=== PATIENT | male | born 1950 | race Caucasian/White ===

== ENCOUNTER 2017-04-08 11:14 | Inpatient (IN) | payer MEDICAID, OTHER ==
[~2017-04-08] VITALS: Ht 182.9 cm; Wt 104.3 kg
[2017-04-08] VITALS (7 sets, daily range): BP systolic 135–157; BP diastolic 76–90
[~2017-04-08 11:14] MED LIST: ASPIRIN325 MG ORAL; ATORVASTATIN CA80 MG ORAL; DEPAKOTE250 MG PO; FLOMAX0.4 MG ORAL; IMDUR30 MG ORAL; LANTUS5 UNITS SUBQ; NITROGLYCERIN0.4 MG SL; NOVOLIN R100 UNIT/1 SUBQ; PLAVIX75 MG ORAL; PROTONIX40 MG ORAL; TOPROL XL25 MG ORAL
[2017-04-08] MEDS ORDERED: Morphine Sulfate 4mg/ml Inj IVP ONE (11:30)
[2017-04-08 11:41] LABS: BASOPHILS % (AUTO) 0.9 % (0.0-2.0); EOSINOPHILS % (AUTO) 5.5 % (0.0-3.0); LYMPHOCYTES % (AUTO) 31.3 % (20.0-45.0); MEAN CORPUSCULAR HEMOGLOBIN 30.2 PG (27.0-31.0); MEAN CORPUSCULAR HGB CONC 31.5 G/DL (32.0-36.0); MEAN CORPUSCULAR VOLUME 96 FL (80-99); MEAN PLATELET VOLUME 5.7 FL (6.5-10.1); MONOCYTES % (AUTO) 8.1 % (1.0-10.0); NEUTROPHILS % (AUTO) 54.3 % (45.0-75.0); PLATELET COUNT 198 K/UL (150-450); RED BLOOD COUNT 3.63 M/UL (4.70-6.10); RED CELL DISTRIBUTION WIDTH 13.2 % (11.6-14.8); WHITE BLOOD COUNT 6.7 K/UL (4.8-10.8)
[2017-04-08 11:56] LABS: ALANINE AMINOTRANSFERASE 25 U/L (12-78); ALBUMIN/GLOBULIN RATIO 0.8 (1.0-2.7); ANION GAP 7 mmol/L (5-15); ASPARTATE AMINO TRANSFERASE 12 U/L (15-37); CALCIUM 9.4 MG/DL (8.5-10.1); CARBON DIOXIDE 29 MMOL/L (21-32); CHLORIDE 100 MMOL/L (98-107); CKMB 1.3 NG/ML (0.0-3.6); GLOMERULAR FILTRATION RATE 33.8 mL/min (>60); POTASSIUM 4.3 MMOL/L (3.5-5.1); SODIUM 136 MMOL/L (136-145); TOTAL PROTEIN 7.2 G/DL (6.4-8.2)
--- NOTE | 2017-04-08 12:41 | Diagnostic Imaging Report ---
Indication: Dyspnea Comparison: None A single view chest radiograph was obtained. Findings: Cardiomediastinal appearance is within normal limits for age. Pulmonary vascularity is appropriate. The diaphragmatic contour is smooth and costophrenic angles are sharp. No pleural effusions are identified. The bones are unremarkable. Impression: No acute findings
[2017-04-08] MEDS ORDERED: Aspirin Baby 81mg ORAL ONE (14:45)
--- NOTE | 2017-04-08 15:51 | Emergency Room Report ---
History of Present Illness General Chief Complaint: Chest Pain Source: Patient, Medical Record, EMS Present Illness HPI 66-year-old male presents ED complaining of chest pain. Patient came from jail. States chest pain started while at rest. Pressure-like, 10 out of 10, nonradiating. Given aspirin and nitroglycerin without relief. Patient states she's had prior AL with multiple cardiac stents. Denies smoking or drug use. No other aggravating relieving factors. Denies any other associated symptoms Allergies: Coded Allergies: ACETAMINOPHEN (Unverified Allergy, Unknown, 05/18/14) unknown reaction CHLORPROMAZINE (Unverified Allergy, Unknown, 05/18/14) HYDROCODONE (Unverified Allergy, Unknown, 05/18/14) unknown reaction IBUPROFEN (Unverified Allergy, Unknown, 05/18/14) IMIPRAMINE (Unverified Allergy, Unknown, shaking, 05/18/14) METHSUXIMIDE (Unverified Allergy, Unknown, 05/18/14) METHYLPHENIDATE (Unverified Allergy, Unknown, 05/18/14) Patient History Past Medical History: HTN, AL, CAD Past Surgical History: none Pertinent Family History: none Social History: Denies: smoking, alcohol use, drug use Immunizations: UTD Reviewed Nursing Documentation: PMH: Agreed, PSxH: Agreed Nursing Documentation-PMH Past Medical History: No History, Except For Hx Cardiac Problems: Yes - CA, stents, mi Hx Hypertension: Yes Hx Diabetes: Yes Hx Cancer: Yes - SKIN CANCER Hx Gastrointestinal Problems: Yes - GROWTH ON UPPER GI TRACT Hx Neurological Problems: Yes Hx Seizures: Yes 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 Hx Vertigo: Yes - VESTIBULARY Review of Systems All Other Systems: negative except mentioned in HPI Physical Exam Vital Signs Date Time Temp Pulse Resp B/P (MAP) Pulse Ox O2 Delivery O2 Flow Rate FiO2 04/08/17 11:10 99.0 75 18 142/75 99 Room Air Sp02 EP Interpretation: reviewed, normal General Appearance: no apparent distress, alert, GCS 15, non-toxic, obese Head: normocephalic, atraumatic Eyes: bilateral eye normal inspection, bilateral eye PERRL ENT: hearing grossly normal, normal pharynx, no angioedema, normal voice Neck: full range of motion, supple/symm/no masses Respiratory: chest non-tender, lungs clear, normal breath sounds, speaking full sentences Cardiovascular #1: regular rate, rhythm, no edema Cardiovascular #2: 2+ carotid (R), 2+ carotid (L), 2+ radial (R), 2+ radial (L) , 2+ dorsalis pedis (R), 2+ dorsalis pedis (L) Gastrointestinal: normal bowel sounds, non tender, soft, non-distended, no guarding, no rebound Rectal: deferred Genitourinary: normal inspection, no CVA tenderness Musculoskeletal: back normal, gait/station normal, normal range of motion, non- tender Neurologic: alert, oriented x3, responsive, motor strength/tone normal, sensory intact, speech normal Psychiatric: judgement/insight normal, memory normal, mood/affect normal, no suicidal/homicidal ideation Reflexes: 3+ bicep (R), 3+ bicep (L), 3+ tricep (R), 3+ tricep (L), 3+ knee (R) , 3+ knee (L) Skin: normal color, no rash, warm/dry, well hydrated Lymphatic: no adenopathy Medical Decision Making Diagnostic Impression: Primary Impression: ACS (acute coronary syndrome) Additional Impressions: Hyperglycemia Renal insufficiency ER Course Hospital Course 66-year-old male presents ED complaining of chest pain Differential diagnoses include: AL/unstable angina, contusion, muscle strain, PTX, rib fracture Clinical course Patient placed on stretcher. on environmental monitoring specialist. After initial history and physical I ordered labs, EKG, chest x-ray, ASA, morphine labs reviewed- no leukocytosis, hb/hct stable, BUN/Cr elevated, glucose > 500 not DKA, trop 0.011 and 0.009 EKG - ST depressions in lateral leads, NSR Chest x-ray- no acute process Case discussed with Dr. Perez and he agreed to accept the patient to his service for further care and support I. I feel this is a highly complex case requiring extensive working including EKG/Rhythm strip, Xray/CT/US, Blood/urine lab work, repeat exams while in ED, and administration of strong opiates/narcotics for pain control, admission to hospital or close patient follow up. Diagnosis - ACS, hyperglycemia, renal insufficiency admitted to telemetry in serious condition Labs Test 04/08/17 11:10 04/08/17 12:04 04/08/17 14:50 White Blood Count 6.7 K/UL (4.8-10.8) Red Blood Count 3.63 M/UL (4.70-6.10) Hemoglobin 11.0 G/DL (14.2-18.0) Hematocrit 34.9 % (42.0-52.0) Mean Corpuscular Volume 96 FL (80-99) Mean Corpuscular Hemoglobin 30.2 PG (27.0-31.0) Mean Corpuscular Hemoglobin Concent 31.5 G/DL (32.0-36.0) Red Cell Distribution Width 13.2 % (11.6-14.8) Platelet Count 198 K/UL (150-450) Mean Platelet Volume 5.7 FL (6.5-10.1) Neutrophils (%) (Auto) 54.3 % (45.0-75.0) Lymphocytes (%) (Auto) 31.3 % (20.0-45.0) Monocytes (%) (Auto) 8.1 % (1.0-10.0) Eosinophils (%) (Auto) 5.5 % (0.0-3.0) Basophils (%) (Auto) 0.9 % (0.0-2.0) Sodium Level 136 MMOL/L (136-145) Potassium Level 4.3 MMOL/L (3.5-5.1) Chloride Level 100 MMOL/L (98-107) Carbon Dioxide Level 29 MMOL/L (21-32) Anion Gap 7 mmol/L (5-15) Blood Urea Nitrogen 23 mg/dL (7-18) Creatinine 2.0 MG/DL (0.55-1.30) Estimat Glomerular Filtration Rate 33.8 mL/min (>60) Glucose Level 510 MG/DL (74-106) Calcium Level 9.4 MG/DL (8.5-10.1) Total Bilirubin 0.4 MG/DL (0.2-1.0) Aspartate Amino Transf (AST/SGOT) 12 U/L (15-37) Alanine Aminotransferase (ALT/SGPT) 25 U/L (12-78) Alkaline Phosphatase 85 U/L (46-116) Total Creatine Kinase 64 U/L (26-308) Creatine Kinase MB 1.3 NG/ML (0.0-3.6) Creatine Kinase MB Relative Index 2.0 Troponin I 0.011 ng/mL (0.000-0.056) 0.009 ng/mL (0.000-0.056) Pro-B-Type Natriuretic Peptide 383 pg/mL (0-125) Total Protein 7.2 G/DL (6.4-8.2) Albumin 3.3 G/DL (3.4-5.0) Globulin 3.9 g/dL Albumin/Globulin Ratio 0.8 (1.0-2.7) Acetone Level Negative (NEGATIVE) Urine Opiates Screen Negative (NEGATIVE) Urine Barbiturates Screen Negative (NEGATIVE) Phencyclidine (PCP) Screen Negative (NEGATIVE) Urine Amphetamines Screen Negative (NEGATIVE) Urine Benzodiazepines Screen Negative (NEGATIVE) Urine Cocaine Screen Negative (NEGATIVE) Urine Marijuana (THC) Screen Negative (NEGATIVE) EKG Diagnostic Results Rate: normal Rhythm: NSR ST Segments: other - ST depressions in lateral leads ASA given to the pt in ED: Yes Rhythm Strip Diag. Results EP Interpretation: yes Rhythm: NSR, no PVC's, no ectopy Chest X-Ray Diagnostic Results Chest X-Ray Diagnostic Results : Chest X-Ray Ordered: Yes # of Views/Limited/Complete: 1 View Indication: Chest Pain EP Interpretation: Yes Interpretation: no consolidation, no effusion, no pneumothorax, no acute cardiopulmonary disease Impression: No acute disease Electronically Signed by: Electronically signed by Charles Kramer MD Last Vital Signs Date Time Temp Pulse Resp B/P (MAP) Pulse Ox O2 Delivery O2 Flow Rate FiO2 04/08/17 11:20 75 18 Room Air 04/08/17 11:20 99.0 150/85 99 Status: improved Disposition: ADMITTED INPATIENT Condition: Serious Referrals: [facility],REFERRING (PCP) CHARLES KRAMER M.D. Apr 08, 2017 15:51
[2017-04-08] MEDS ORDERED: Mylanta II UD 30ml ORAL PRN (16:15)
[2017-04-08] MEDS ORDERED: Nitroglycerin Subl 0.4mg tab SL PRN (16:15)
[2017-04-08] MEDS ORDERED: HYDROmorphone 2mg tab ORAL PRN (17:00)
[2017-04-08] MEDS: NovoLOG Insulin Flexpen SUBQ SCH ×2 (18:25→21:05)
--- NOTE | 2017-04-08 20:08 | History and Physical ---
History of Present Illness General Date patient seen: Apr 08, 2017 Time patient seen: 20:08 Reason for Hospitalization: Chest Pain Present Illness HPI 66y/o male with pmh of CA in 2013 w/ CAD s/p 8 stents per pt (no records available), HTN, HLD, DM2, GERD, BPH who presents with chest pain Pt states chest pain started 10:30AM on day of presentation to ED. He states it has been constant since and is described as an "elephant" sitting on his chest w/ associated L arm pain and nauseous. He states pain is similar to chest pain he experienced in 2013 when he had his CA. He also c/o back pain and L leg pain as he has spine issues and a L fibular fracture which was sustained Dec 2016. Pt denies f/c, emesis, abd pain, SOB. In field pt given ASA and NTG w/o much relief. In ED, p Allergies: Coded Allergies: ACETAMINOPHEN (Unverified Allergy, Unknown, 05/18/14) unknown reaction CHLORPROMAZINE (Unverified Allergy, Unknown, 05/18/14) HYDROCODONE (Unverified Allergy, Unknown, 05/18/14) unknown reaction IBUPROFEN (Unverified Allergy, Unknown, 05/18/14) IMIPRAMINE (Unverified Allergy, Unknown, shaking, 05/18/14) METHSUXIMIDE (Unverified Allergy, Unknown, 05/18/14) METHYLPHENIDATE (Unverified Allergy, Unknown, 05/18/14) Medication History Scheduled Aspirin* (Aspirin*), 325 MG ORAL DAILY, (Reported) Atorvastatin Calcium* (Lipitor*), 80 MG ORAL BEDTIME, (Reported) Clopidogrel Bisulfate* (Plavix*), 75 MG ORAL DAILY, (Reported) Divalproex Sodium* (Depakote*), 1,000 MG PO Q12HR, (Reported) Insulin Glargine (Lantus), 26 SUBQ BID, (Reported) Insulin Regular, Human* (Novolin R*), 0 SUBQ .SLIDING SCALE, (Reported) Isosorbide Mononitrate* (Imdur*), 30 MG ORAL DAILY, (Reported) Metoprolol Succinate* (Toprol Xl*), 25 MG ORAL DAILY, (Reported) Nitroglycerin (Nitroglycerin), 0.4 MG SL PRN, (Reported) Pantoprazole* (Protonix*), 40 MG ORAL DAILY, (Reported) Tamsulosin HCl (Flomax), 0.4 MG ORAL DAILY, (Reported) Patient History History Provided By: Patient, Medical Record, EMS Healthcare decision maker Resuscitation status Advanced Directive on File No Past Medical/Surgical History Past Medical/Surgical History: (1) H/o CA in 2014 per patient (2) CAD s/p 8 stents per patient (3) HTN (hypertension) (4) HLD (hyperlipidemia) (5) GERD (gastroesophageal reflux disease) (6) BPH (benign prostatic hyperplasia) (7) DM2 (diabetes mellitus, type 2) Family History Family History: Patient reports no known family medical history. Social History Social History: (1) lives in [facility] Review of Systems Constitutional: Reports: no symptoms Eye: Reports: no symptoms ENT: Reports: no symptoms Respiratory: Reports: no symptoms Cardiovascular: Reports: chest pain Gastrointestinal: Reports: no symptoms Genitourinary: Reports: no symptoms Musculoskeletal: Reports: back pain, muscle pain Skin: Reports: no symptoms Psychiatric: Reports: no symptoms Neurological: Reports: no symptoms Endocrine: Reports: no symptoms Hematologic/Lymphatic: Reports: no symptoms Physical Exam Physical Exam Narrative General: alert, cooperative, no distress, appears stated age Head: normocephalic, without obvious abnormality, atraumatic Eyes: conjunctivae/corneas clear. PERRL, EOM's intact Throat: lips, mucosa, and tongue normal. MMM Neck: supple, symmetrical, trachea midline, and no JVD Lungs: clear to auscultation bilaterally Heart: regular rate and rhythm, S1, S2 normal, no murmur, click, rub or gallop Abdomen: soft, non-tender, non-distended, bowel sounds normal; no masses or organomegaly Extremities: extremities normal, atraumatic, no cyanosis or edema Pulses: 2+ and symmetric Skin: skin color, texture, turgor normal; no rashes or lesions Neurologic: grossly normal, no focal deficits Last 24 Hour Vital Signs Date Time Temp Pulse Resp B/P (MAP) Pulse Ox O2 Delivery O2 Flow Rate FiO2 04/08/17 16:07 97.5 67 18 157/90 97 Room Air 04/08/17 16:00 70 04/08/17 15:20 98.4 80 18 147/80 99 Room Air 04/08/17 15:20 97.9 80 18 147/80 99 Room Air 04/08/17 14:25 98.4 75 20 138/76 98 Room Air 04/08/17 12:30 98.5 86 16 144/88 100 Room Air 04/08/17 11:20 75 18 Room Air 04/08/17 11:20 99.0 73 18 150/85 99 Room Air 04/08/17 11:10 99.0 75 18 142/75 99 Room Air Intake and Output 04/08/17 04/09/17 19:00 07:00 Intake Total 1120 ml Balance 1120 ml Intake Oral 120 ml IV Total 1000 ml # Voids 1 Laboratory Tests Test 04/08/17 11:10 04/08/17 12:04 04/08/17 14:50 White Blood Count 6.7 K/UL (4.8-10.8) Red Blood Count 3.63 M/UL (4.70-6.10) L Hemoglobin 11.0 G/DL (14.2-18.0) L Hematocrit 34.9 % (42.0-52.0) L Mean Corpuscular Volume 96 FL (80-99) Mean Corpuscular Hemoglobin 30.2 PG (27.0-31.0) Mean Corpuscular Hemoglobin Concent 31.5 G/DL (32.0-36.0) L Red Cell Distribution Width 13.2 % (11.6-14.8) Platelet Count 198 K/UL (150-450) Mean Platelet Volume 5.7 FL (6.5-10.1) L Neutrophils (%) (Auto) 54.3 % (45.0-75.0) Lymphocytes (%) (Auto) 31.3 % (20.0-45.0) Monocytes (%) (Auto) 8.1 % (1.0-10.0) Eosinophils (%) (Auto) 5.5 % (0.0-3.0) H Basophils (%) (Auto) 0.9 % (0.0-2.0) Sodium Level 136 MMOL/L (136-145) Potassium Level 4.3 MMOL/L (3.5-5.1) Chloride Level 100 MMOL/L (98-107) Carbon Dioxide Level 29 MMOL/L (21-32) Anion Gap 7 mmol/L (5-15) Blood Urea Nitrogen 23 mg/dL (7-18) H Creatinine 2.0 MG/DL (0.55-1.30) H Estimat Glomerular Filtration Rate 33.8 mL/min (>60) Glucose Level 510 MG/DL (74-106) *H Calcium Level 9.4 MG/DL (8.5-10.1) Total Bilirubin 0.4 MG/DL (0.2-1.0) Aspartate Amino Transf (AST/SGOT) 12 U/L (15-37) L Alanine Aminotransferase (ALT/SGPT) 25 U/L (12-78) Alkaline Phosphatase 85 U/L (46-116) Total Creatine Kinase 64 U/L (26-308) Creatine Kinase MB 1.3 NG/ML (0.0-3.6) Creatine Kinase MB Relative Index 2.0 Troponin I 0.011 ng/mL (0.000-0.056) 0.009 ng/mL (0.000-0.056) Pro-B-Type Natriuretic Peptide 383 pg/mL (0-125) H Total Protein 7.2 G/DL (6.4-8.2) Albumin 3.3 G/DL (3.4-5.0) L Globulin 3.9 g/dL Albumin/Globulin Ratio 0.8 (1.0-2.7) L Acetone Level Negative (NEGATIVE) Urine Opiates Screen Negative (NEGATIVE) Urine Barbiturates Screen Negative (NEGATIVE) Phencyclidine (PCP) Screen Negative (NEGATIVE) Urine Amphetamines Screen Negative (NEGATIVE) Urine Benzodiazepines Screen Negative (NEGATIVE) Urine Cocaine Screen Negative (NEGATIVE) Urine Marijuana (THC) Screen Negative (NEGATIVE) Height (Feet): 6 Height (Inches): 2.00 Weight (Pounds): 230 Medications Current Medications Medications (Trade) Dose Ordered Sig/Breanna Route PRN Reason Start Time Stop Time Status Last Admin Dose Admin Al Hydroxide/Mg Hydroxide (Mylanta II) 30 ml Q6H PRN ORAL dyspepsia 04/08/17 16:15 05/08/17 16:14 Aspirin (ASA) 325 mg DAILY ORAL 04/09/17 09:00 05/09/17 08:59 Atorvastatin Calcium (Lipitor) 80 mg BEDTIME ORAL 04/08/17 21:00 05/08/17 20:59 Clopidogrel Bisulfate (Plavix) 75 mg DAILY ORAL 04/09/17 09:00 05/09/17 08:59 Dextrose (Dextrose 50%) STAT PRN IV Hypoglycemia 04/08/17 16:15 05/08/17 16:14 Diphenhydramine HCl (Benadryl) 25 mg Q6H PRN ORAL Itching/Pruritis 04/08/17 16:15 05/08/17 16:14 Divalproex Sodium (Depakote) 1,000 mg Q12HR ORAL 04/08/17 21:00 05/08/17 20:59 Docusate Sodium (Colace) 100 mg EVERY 12 HOURS ORAL 04/08/17 21:00 05/08/17 20:59 Heparin Sodium (Porcine) (Heparin 5000 units/ml) 5,000 units EVERY 12 HOURS SUBQ 04/08/17 21:00 05/08/17 20:59 Hydromorphone HCl (Dilaudid) 2 mg Q4H PRN ORAL pain scale 4-10 04/08/17 17:00 04/15/17 16:59 04/08/17 18:44 Insulin Aspart (NovoLOG) BEFORE MEALS AND HS SUBQ 04/08/17 17:30 05/08/17 17:29 04/08/17 18:25 Isosorbide Mononitrate (Imdur) 30 mg DAILY ORAL 04/09/17 09:00 05/09/17 08:59 Metoprolol Succinate (Toprol XL) 25 mg DAILY ORAL 04/09/17 09:00 05/09/17 08:59 Nitroglycerin (Ntg) 0.4 mg Q5M PRN SL CHEST PAIN 04/08/17 16:15 05/08/17 16:14 Ondansetron HCl (Zofran) 4 mg Q6H PRN IVP Nausea & Vomiting 04/08/17 16:15 05/08/17 16:14 Pantoprazole (Protonix) 40 mg DAILY ORAL 04/09/17 09:00 05/09/17 08:59 Tamsulosin HCl (Flomax) 0.4 mg DAILY ORAL 04/09/17 09:00 05/09/17 08:59 Assessment/Plan Problem List: (1) Hyperglycemia ICD Codes: R73.9 - Hyperglycemia, unspecified SNOMED: 72361667 (2) Chest pain ICD Codes: R07.9 - Chest pain, unspecified SNOMED: 01522330 (3) GRZEGORZ vs CKD (4) H/o CA in 2014 per patient (5) CAD s/p 8 stents per patient (6) HTN (hypertension) ICD Codes: I10 - Essential (primary) hypertension SNOMED: 44088283 (7) HLD (hyperlipidemia) ICD Codes: E78.5 - Hyperlipidemia, unspecified SNOMED: 59316372 (8) GERD (gastroesophageal reflux disease) ICD Codes: K21.9 - Gastro-esophageal reflux disease without esophagitis SNOMED: 296201533 (9) BPH (benign prostatic hyperplasia) ICD Codes: N40.0 - Benign prostatic hyperplasia without lower urinary tract symptoms SNOMED: 700468221 (10) DM2 (diabetes mellitus, type 2) ICD Codes: E11.9 - Type 2 diabetes mellitus without complications SNOMED: 27076415 Status: stable Assessment/Plan Admit to tele Trend trop/EKG Check TTE Cardiology consulted Check lipid panel, A1C, TSH Renal consulted Trend BMP and lytes Check U/A and urine lytes Cont home meds including ASA, plavix, statin Pain control, supportive care, bowel regimen HSQ for DVT ppx FULL CODE D/w pt, RN, cardiology, renal, SW/CM regarding mgmt and dispo Catie Dillon M.D. Apr 08, 2017 20:08
[2017-04-08] MEDS: Atorvastatin 80mg tab ORAL SCH (21:01)
[2017-04-08] MEDS: Docusate 100mg cap ORAL SCH (21:01)
[2017-04-08] MEDS: Heparin 5000 units/ml inj SUBQ SCH (21:03)
[2017-04-08] MEDS: Depakote 500mg tab ORAL SCH (21:04)
[2017-04-08] MEDS: HYDROmorphone 1mg/ml Carpuject IVP PRN (22:15)
[2017-04-08 23:37] LABS: APPEARANCE,URINE CLEAR; KETONES,URINE NEGATIVE (NEGATIVE); LEUKOCYTE ESTERASE ,URINE NEGATIVE (NEGATIVE); NITRITE,URINE NEGATIVE (NEGATIVE); PH,URINE 5 (4.5-8.0); PROTEIN,URINE NEGATIVE (NEGATIVE); UROBILINOGEN,URINE NORMAL MG/DL (0.0-1.0)
[2017-04-08] MEDS: Meclizine 25mg tab ORAL PRN (23:42)
[2017-04-09] VITALS: BP 126/77
[2017-04-09] MEDS: HYDROmorphone 1mg/ml Carpuject IVP PRN ×5 (02:46→22:42)
[2017-04-09 04:00] VITALS: BP 114/74
[2017-04-09] MEDS: NovoLOG Insulin Flexpen SUBQ SCH ×4 (06:52→20:34)
[2017-04-09 08:00] VITALS: BP 113/70
[2017-04-09 08:36] LABS: BASOPHILS % (AUTO) 0.7 % (0.0-2.0); EOSINOPHILS % (AUTO) 5.3 % (0.0-3.0); LYMPHOCYTES % (AUTO) 39.6 % (20.0-45.0); MEAN CORPUSCULAR HEMOGLOBIN 31.2 PG (27.0-31.0); MEAN CORPUSCULAR HGB CONC 31.5 G/DL (32.0-36.0); MEAN CORPUSCULAR VOLUME 99 FL (80-99); MEAN PLATELET VOLUME 5.3 FL (6.5-10.1); MONOCYTES % (AUTO) 4.9 % (1.0-10.0); NEUTROPHILS % (AUTO) 49.6 % (45.0-75.0); PLATELET COUNT 183 K/UL (150-450); RED BLOOD COUNT 3.48 M/UL (4.70-6.10); RED CELL DISTRIBUTION WIDTH 13.7 % (11.6-14.8); WHITE BLOOD COUNT 9.5 K/UL (4.8-10.8)
[2017-04-09] MEDS: Docusate 100mg cap ORAL SCH ×2 (08:41→20:16)
[2017-04-09] MEDS: Tamsulosin 0.4mg cap ORAL SCH (08:42)
[2017-04-09] MEDS: Metoprolol Succinate XL 25mg tab ORAL SCH (08:43)
[2017-04-09] MEDS: Depakote 500mg tab ORAL SCH ×2 (08:55→20:17)
[2017-04-09] MEDS: Imdur 30mg tab ORAL SCH (08:55)
[2017-04-09] MEDS: Heparin 5000 units/ml inj SUBQ SCH ×2 (08:58→20:21)
[2017-04-09 09:05] LABS: ANION GAP 5 mmol/L (5-15); CALCIUM 9.3 MG/DL (8.5-10.1); CARBON DIOXIDE 31 MMOL/L (21-32); CHLORIDE 105 MMOL/L (98-107); CHOLESTEROL 135 MG/DL (< 200); CHOLESTEROL/HDL RATIO 3.9 (3.3-4.4); CREATININE 1.9 MG/DL (0.55-1.30); GLOMERULAR FILTRATION RATE 35.9 mL/min (>60); MAGNESIUM 1.9 MG/DL (1.8-2.4); SODIUM 141 MMOL/L (136-145); THYROID STIMULATING HORMONE 11.482 uiU/mL (0.360-3.740)
[2017-04-09 10:29] LABS: ALANINE AMINOTRANSFERASE 25 U/L (12-78); ASPARTATE AMINO TRANSFERASE 18 U/L (15-37); BILIRUBIN,DIRECT < 0.1 MG/DL (0.0-0.3); PHOSPHORUS 4.2 MG/DL (2.5-4.9); URIC ACID 9.8 MG/DL (2.6-7.2)
[2017-04-09 11:58] VITALS: BP 123/78
[2017-04-09 13:48] LABS: FOLIC ACID 18.8 NG/ML (3.1-17.5)
--- NOTE | 2017-04-09 15:16 | Cardiac Electrophysiology PN ---
Subjective Subjective Dictated [id number] Objective Last 24 Hour Vital Signs Date Time Temp Pulse Resp B/P (MAP) Pulse Ox O2 Delivery O2 Flow Rate FiO2 04/09/17 12:00 85 04/09/17 11:58 97.5 86 20 123/78 94 Nasal Cannula 2.0 04/09/17 08:55 113/70 04/09/17 08:43 84 113/70 04/09/17 08:00 78 04/09/17 08:00 97.2 84 21 113/70 97 Nasal Cannula 2.0 04/09/17 04:00 76 04/09/17 04:00 97.0 74 20 114/74 96 Nasal Cannula 3.0 04/09/17 00:00 97.7 72 20 126/77 97 Nasal Cannula 2.0 04/09/17 00:00 72 04/08/17 20:00 72 04/08/17 20:00 96.4 72 20 135/86 100 Nasal Cannula 2.0 04/08/17 16:07 97.5 67 18 157/90 97 Room Air 04/08/17 16:00 70 04/08/17 15:20 98.4 80 18 147/80 99 Room Air 04/08/17 15:20 97.9 80 18 147/80 99 Room Air Laboratory Tests Test 04/08/17 21:00 04/08/17 22:10 04/09/17 07:10 Troponin I 0.000 ng/mL (0.000-0.056) 0.017 ng/mL (0.000-0.056) Urine Color Yellow Urine Appearance Clear Urine pH 5 (4.5-8.0) Urine Specific [place] 1.010 (1.005-1.035) Urine Protein Negative (NEGATIVE) Urine Glucose (UA) 4+ (NEGATIVE) H Urine Ketones Negative (NEGATIVE) Urine Occult Blood Negative (NEGATIVE) Urine Nitrite Negative (NEGATIVE) Urine Bilirubin Negative (NEGATIVE) Urine Urobilinogen Normal MG/DL (0.0-1.0) Urine Leukocyte Esterase Negative (NEGATIVE) Urine Random Sodium 67 MEQ/L (20-110) Urine Creatinine 102.4 MG/DL (30.0-125.0) Urine Opiates Screen Negative (NEGATIVE) Urine Barbiturates Screen Negative (NEGATIVE) Phencyclidine (PCP) Screen Negative (NEGATIVE) Urine Amphetamines Screen Negative (NEGATIVE) Urine Benzodiazepines Screen Negative (NEGATIVE) Urine Cocaine Screen Negative (NEGATIVE) Urine Marijuana (THC) Screen Negative (NEGATIVE) White Blood Count 9.5 K/UL (4.8-10.8) Red Blood Count 3.48 M/UL (4.70-6.10) L Hemoglobin 10.8 G/DL (14.2-18.0) L Hematocrit 34.4 % (42.0-52.0) L Mean Corpuscular Volume 99 FL (80-99) Mean Corpuscular Hemoglobin 31.2 PG (27.0-31.0) H Mean Corpuscular Hemoglobin Concent 31.5 G/DL (32.0-36.0) L Red Cell Distribution Width 13.7 % (11.6-14.8) Platelet Count 183 K/UL (150-450) Mean Platelet Volume 5.3 FL (6.5-10.1) L Neutrophils (%) (Auto) 49.6 % (45.0-75.0) Lymphocytes (%) (Auto) 39.6 % (20.0-45.0) Monocytes (%) (Auto) 4.9 % (1.0-10.0) Eosinophils (%) (Auto) 5.3 % (0.0-3.0) H Basophils (%) (Auto) 0.7 % (0.0-2.0) Sodium Level 141 MMOL/L (136-145) Potassium Level 4.0 MMOL/L (3.5-5.1) Chloride Level 105 MMOL/L (98-107) Carbon Dioxide Level 31 MMOL/L (21-32) Anion Gap 5 mmol/L (5-15) Blood Urea Nitrogen 24 mg/dL (7-18) H Creatinine 1.9 MG/DL (0.55-1.30) H Estimat Glomerular Filtration Rate 35.9 mL/min (>60) Glucose Level 145 MG/DL (74-106) #H Hemoglobin A1c 9.0 % (4.3-6.0) H Uric Acid 9.8 MG/DL (2.6-7.2) H Calcium Level 9.3 MG/DL (8.5-10.1) Phosphorus Level 4.2 MG/DL (2.5-4.9) Magnesium Level 1.9 MG/DL (1.8-2.4) Total Bilirubin 0.4 MG/DL (0.2-1.0) Direct Bilirubin < 0.1 MG/DL (0.0-0.3) Gamma Glutamyl Transpeptidase 34 U/L (5-85) Aspartate Amino Transf (AST/SGOT) 18 U/L (15-37) Alanine Aminotransferase (ALT/SGPT) 25 U/L (12-78) Alkaline Phosphatase 66 U/L (46-116) Total Creatine Kinase 47 U/L (26-308) Total Protein 7.0 G/DL (6.4-8.2) Albumin 3.4 G/DL (3.4-5.0) Triglycerides Level 306 MG/DL (0-200) H Cholesterol Level 135 MG/DL (< 200) LDL Cholesterol 64 mg/dL (<100) HDL Cholesterol 35 MG/DL (40-60) L Cholesterol/HDL Ratio 3.9 (3.3-4.4) Vitamin B12 Level 604 PG/ML (193-986) Vitamin D 25-Hydroxy Pending 25-Hydroxy Vitamin D2 Pending 25-Hydroxy Vitamin D3 Pending Folate 18.8 NG/ML (3.1-17.5) H Thyroid Stimulating Hormone (TSH) 11.482 uiU/mL (0.360-3.740) Free Thyroxine 0.87 NG/DL (0.10-1.46) SADE MARC Apr 09, 2017 15:16
[2017-04-09 16:00] VITALS: BP 104/70
--- NOTE | 2017-04-09 16:31 | Consultation ---
Consult Note Consult Note 66-year-old male presents ED complaining of chest pain. Patient came from group home. States chest pain started while at rest. Pressure-like, 10 out of 10, nonradiating. Given aspirin and nitroglycerin without relief. Patient states she's had prior MO with multiple cardiac stents. Denies smoking or drug use. No other aggravating relieving factors. Denies any other associated symptoms Allergies: Coded Allergies: ACETAMINOPHEN (Unverified Allergy, Unknown, 05/18/14) unknown reaction CHLORPROMAZINE (Unverified Allergy, Unknown, 05/18/14) HYDROCODONE (Unverified Allergy, Unknown, 05/18/14) unknown reaction IBUPROFEN (Unverified Allergy, Unknown, 05/18/14) IMIPRAMINE (Unverified Allergy, Unknown, shaking, 05/18/14) METHSUXIMIDE (Unverified Allergy, Unknown, 05/18/14) METHYLPHENIDATE (Unverified Allergy, Unknown, 05/18/14) Patient History Past Medical History: HTN, [place], CAD Assessment/Plan Renal failure ? Chronic Anemia, Etiology? High TSh, Hypothyroid ACS DM , high A1c HyperUrecemia Obese Plan: Hydrate- Kidney MABEL per cardiology Per orders RANGEL PERES Apr 09, 2017 16:31
[2017-04-09] MEDS: Allopurinol 100mg Tab ORAL SCH (16:45)
--- NOTE | 2017-04-09 18:18 | General Progress Note ---
Assessment/Plan Problem List: (1) Chest pain ICD Codes: R07.9 - Chest pain, unspecified SNOMED: 76763471 (2) Hyperglycemia ICD Codes: R73.9 - Hyperglycemia, unspecified SNOMED: 55098301 (3) GRZEGORZ vs CKD (4) H/o LA in 2014 per patient (5) CAD s/p 8 stents per patient (6) HTN (hypertension) ICD Codes: I10 - Essential (primary) hypertension SNOMED: 59891520 (7) HLD (hyperlipidemia) ICD Codes: E78.5 - Hyperlipidemia, unspecified SNOMED: 08001324 (8) GERD (gastroesophageal reflux disease) ICD Codes: K21.9 - Gastro-esophageal reflux disease without esophagitis SNOMED: 945924260 (9) BPH (benign prostatic hyperplasia) ICD Codes: N40.0 - Benign prostatic hyperplasia without lower urinary tract symptoms SNOMED: 797777302 (10) DM2 (diabetes mellitus, type 2) ICD Codes: E11.9 - Type 2 diabetes mellitus without complications SNOMED: 45060348 (11) Tremor ICD Codes: R25.1 - Tremor, unspecified SNOMED: 80284465 Status: stable Assessment/Plan Monitor on tele Serial trop neg x 3 F/u TTE Appreciate cardiology consult Check nuclear stress test Appreicate renal consult Trend BMP and lytes Check renal U/S Trial of IVFs Cont home meds including ASA, plavix, statin SSI Neuro consulted given tremor Pain control, supportive care, bowel regimen HSQ for DVT ppx Likely d/c tomorrow if stress test neg FULL CODE D/w pt, RN, cardiology, renal, SW/CM regarding mgmt and dispo Subjective Date patient seen: Apr 09, 2017 Time patient seen: 11:00 Constitutional: Reports: no symptoms HEENT: Reports: no symptoms Cardiovascular: Reports: chest pain Respiratory: Reports: no symptoms Genitourinary: Reports: no symptoms Neurologic/Psychiatric: Reports: no symptoms Endocrine: Reports: no symptoms Hematologic/Lymphatic: Reports: no symptoms Allergies: Coded Allergies: ACETAMINOPHEN (Unverified Allergy, Unknown, 05/18/14) unknown reaction CHLORPROMAZINE (Unverified Allergy, Unknown, 05/18/14) HYDROCODONE (Unverified Allergy, Unknown, 05/18/14) unknown reaction IBUPROFEN (Unverified Allergy, Unknown, 05/18/14) IMIPRAMINE (Unverified Allergy, Unknown, shaking, 05/18/14) METHSUXIMIDE (Unverified Allergy, Unknown, 05/18/14) METHYLPHENIDATE (Unverified Allergy, Unknown, 05/18/14) Subjective No acute o/n events Trop neg x 3 TTE completed, awaiting report Pt states chest pain improving. Complains more of back and leg pain from spine issue and fibular fx. States PCP has referred him to ortho but he is awaiting insurance authorization to be seen. Denies f/c, n/v, d/c, SOB, abd pain C/o tremor of hands that has been going on for some time and he has shown his PCP. Pt concerned if it is Parkinson's and would like to see neuro Objective Last 24 Hour Vital Signs Date Time Temp Pulse Resp B/P (MAP) Pulse Ox O2 Delivery O2 Flow Rate FiO2 04/09/17 16:00 97.5 107 21 104/70 95 Room Air 04/09/17 12:00 85 04/09/17 11:58 97.5 86 20 123/78 94 Nasal Cannula 2.0 04/09/17 08:55 113/70 04/09/17 08:43 84 113/70 04/09/17 08:00 78 04/09/17 08:00 97.2 84 21 113/70 97 Nasal Cannula 2.0 04/09/17 04:00 76 04/09/17 04:00 97.0 74 20 114/74 96 Nasal Cannula 3.0 04/09/17 00:00 97.7 72 20 126/77 97 Nasal Cannula 2.0 04/09/17 00:00 72 04/08/17 20:00 72 04/08/17 20:00 96.4 72 20 135/86 100 Nasal Cannula 2.0 Laboratory Tests 04/08/17 21:00: Troponin I 0.000 04/08/17 22:10: Urine Color Yellow, Urine Appearance Clear, Urine pH 5, Urine Specific [place] 1.010, Urine Protein Negative, Urine Glucose (UA) 4+H, Urine Ketones Negative, Urine Occult Blood Negative, Urine Nitrite Negative, Urine Bilirubin Negative, Urine Urobilinogen Normal, Urine Leukocyte Esterase Negative, Urine Random Sodium 67, Urine Creatinine 102.4, Urine Opiates Screen Negative, Urine Barbiturates Screen Negative, Phencyclidine (PCP) Screen Negative, Urine Amphetamines Screen Negative, Urine Benzodiazepines Screen Negative, Urine Cocaine Screen Negative, Urine Marijuana (THC) Screen Negative 04/09/17 07:10: Troponin I 0.017, White Blood Count 9.5, Red Blood Count 3.48L, Hemoglobin 10.8L , Hematocrit 34.4L, Mean Corpuscular Volume 99, Mean Corpuscular Hemoglobin 31.2H, Mean Corpuscular Hemoglobin Concent 31.5L, Red Cell Distribution Width 13.7, Platelet Count 183, Mean Platelet Volume 5.3L, Neutrophils (%) (Auto) 49.6 , Lymphocytes (%) (Auto) 39.6, Monocytes (%) (Auto) 4.9, Eosinophils (%) (Auto) 5.3H, Basophils (%) (Auto) 0.7, Sodium Level 141, Potassium Level 4.0, Chloride Level 105, Carbon Dioxide Level 31, Anion Gap 5, Blood Urea Nitrogen 24H, Creatinine 1.9H, Estimat Glomerular Filtration Rate 35.9, Glucose Level 145#H, Hemoglobin A1c 9.0H, Uric Acid 9.8H, Calcium Level 9.3, Phosphorus Level 4.2, Magnesium Level 1.9, Total Bilirubin 0.4, Direct Bilirubin < 0.1, Gamma Glutamyl Transpeptidase 34, Aspartate Amino Transf (AST/SGOT) 18, Alanine Aminotransferase (ALT/SGPT) 25, Alkaline Phosphatase 66, Total Creatine Kinase 47, Total Protein 7.0, Albumin 3.4, Triglycerides Level 306H, Cholesterol Level 135, LDL Cholesterol 64, HDL Cholesterol 35L, Cholesterol/HDL Ratio 3.9, Vitamin B12 Level 604, Vitamin D 25-Hydroxy [Pending], 25-Hydroxy Vitamin D2 [ Pending], 25-Hydroxy Vitamin D3 [Pending], Folate 18.8H, Thyroid Stimulating Hormone (TSH) 11.482H, Free Thyroxine 0.87 Height (Feet): 6 Height (Inches): 2.00 Weight (Pounds): 230 Objective General: alert, cooperative, no distress, appears stated age Head: normocephalic, without obvious abnormality, atraumatic Eyes: conjunctivae/corneas clear. PERRL, EOM's intact Throat: lips, mucosa, and tongue normal. MMM Neck: supple, symmetrical, trachea midline, and no JVD Lungs: clear to auscultation bilaterally Heart: regular rate and rhythm, S1, S2 normal, no murmur, click, rub or gallop Abdomen: soft, non-tender, non-distended, bowel sounds normal; no masses or organomegaly Extremities: extremities normal, atraumatic, no cyanosis or edema Pulses: 2+ and symmetric Skin: skin color, texture, turgor normal; no rashes or lesions Neurologic: grossly normal, no focal deficits Catie Dillon M.D. Apr 09, 2017 18:18
--- NOTE | 2017-04-09 19:22 | Consultation ---
Consult Note Consult Note NEUROLOGY CONSULTATION: Full note dictated #[id number] 66 y/o, LH, CM with H/O insult, seizure disorder under excellent control with Depakote, ADHD, HTN, DM, DL, and CAD s/p PCI who was hospitalized for chest pain. He complained of a tremor. He had a tremor a 4 years ago associated with hyperthyroidism which responded to a decrease in dose of Synthroid. About 4 months ago the tremor recurred. ON EXAM: Mild memory problems. Give way weakness in all 4s. Globally absent reflexes. 7-8 Hz tremor which increases significantly with effort in UE Wide based ataxic gait. 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 "Generalized Idiopathic Epilepsy" REC: 1. W/U for treatable causes of ET 2. Keep active. Kirk Munguia M.D., M.S.P.KIRK LUCAS Apr 09, 2017 19:22
[2017-04-09] MEDS: Atorvastatin 80mg tab ORAL SCH (20:16)
[2017-04-09 20:17] VITALS: BP 108/67
[2017-04-09 20:31] LABS: AMMONIA 24 umol/L (11.2-31.7)
[2017-04-09 20:33] LABS: VALPROIC ACID 91 MCG/ML (50-100)
[2017-04-09 20:38] LABS: ABG ALLEN TEST POSITIVE; ABG PCO2 36.7 mmHg (35.0-45.0)
--- NOTE | 2017-04-09 21:45 | Consultation ---
DATE OF CONSULTATION: 04/09/2017 CARDIOLOGY CONSULTATION CONSULTING PHYSICIAN: Chung Dorsey M.D. REFERRING PHYSICIAN: Blair Nick M.D. REASON FOR CONSULTATION: Chest pain. HISTORY OF PRESENT ILLNESS: The patient is a 66-year-old gentleman with history of hypertension, coronary artery disease, and history of prior myocardial infarction in August and December 2013. The patient states that he has had eight stents in his coronaries with most recent one in May 2014 at [facility]. The patient developed chest pain while he was rest at the assisted living, it was 10/10 and was nonradiating. The patient received aspirin and nitroglycerin without any relief. The patient was admitted and a Cardiology consultation was obtained for further evaluation and management. ALLERGIES: He is allergic to acetaminophen, promethazine, hydrocodone, ibuprofen, imipramine, and methylphenidate. SOCIAL HISTORY: [facility]. Does not smoke or drink alcohol. FAMILY HISTORY: Noncontributory. REVIEW OF SYSTEMS: Review of systems was performed and was negative other than what was mentioned in the history of present illness. PHYSICAL EXAMINATION: VITAL SIGNS: Blood pressure 122/78, pulse 86, respirations 18, and temperature 97.5. HEAD AND NECK: Showed no JVD. LUNGS: Clear. CARDIOVASCULAR: Regular S1 and S2 with no gallop or murmur. ABDOMEN: Soft. EXTREMITIES: No pitting edema. IMAGING STUDIES: His EKG shows sinus rhythm with lateral ischemia. LABORATORY DATA: White count of 9.5, hematocrit 10.8, hematocrit of 34.5, and platelet count 183. Sodium 141, potassium is 4.0, BUN of 24, creatinine 1.9, and glucose of 145. His troponins are negative x4. His glucose on admission was 510. ASSESSMENT AND PLAN: 1. Chest pain. The patient was ruled out for myocardial infarction by serial cardiac enzymes. EKG shows lateral ischemia but we did not have any prior EKGs to compare with. Continue aspirin, Plavix, and Toprol 25 mg daily as well as Imdur 30 mg daily. The patient is also on Lipitor 80 mg daily. We will schedule the patient for echocardiogram as well as nuclear stress test for further evaluation. 2. Hypertension. Blood pressure was stable on Imdur 30 mg and Toprol-XL 25 mg daily. 3. Renal failure. Creatinine was around 2, VILMA inhibitor and angiotensin receptor blockers. 4. History of seizures. 5. History of skin cancer. Thank you very much, Dr. Nick, for allowing me to participate in the care of this patient. Please do not hesitate to contact me for any questions regarding my evaluation. Chung Dorsey M.D. DR: BENJAMÍN JOB#: [id number] CC:
[2017-04-09] MEDS: HYDROmorphone 2mg tab ORAL PRN ×2 (21:56→22:00)
--- NOTE | 2017-04-10 | Consultation ---
DATE OF CONSULTATION: 04/09/2017 NEUROLOGY CONSULTATION REQUESTING PHYSICIAN: Catie Dillon M.D. HISTORY: Mr. Stefano Chopra is a 66-year-old, left-handed, gentleman, who has a history of a insult; seizure disorder - under excellent control with Depakote; ADHD; hypertension; diabetes mellitus; dyslipidemia; and coronary artery disease - status post percutaneous interventions. He was hospitalized for chest pain. He complained of tremor and thus, this consultation was requested to evaluate the patient for the type of tremor that he has. As per the patient, he started having seizures since he was a child. He was on various different medicines over the years, but the medicine that seems to work best for him is Depakote. He has been free of any generalized tonic-clonic seizures since the on the Depakote. A few years ago, one of his physicians tried to change him to another antiseizure medicine, but when that was done, he started to have most probably complex partial seizures. He was placed back on Depakote and the seizures stopped. Approximately four years ago, he started to have a tremor. The tremor involved predominantly his upper extremities and at one time, he also felt the tremor in his lower extremities. At that time, it was felt that he was hyperthyroid and when his dose of Synthroid was decreased, the tremor went away. Approximately four months ago, the tremor came back and has been there predominantly in the upper extremities. The tremor is minimal or absent when he is at rest, but increases significantly when he uses his hands to do things. He denies any stiffness, any change in his facial expression, any slowness of movements or other neurological symptoms. PAST MEDICAL HISTORY: Significant for insult, seizure disorder, ADHD, hypertension, diabetes mellitus, dyslipidemia, coronary artery disease, and hypothyroidism. FAMILY HISTORY: Significant for seizures in numerous family members. PERSONAL HISTORY: Home: He lives in an assisted living facility. 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 Habits: He denies use of tobacco or illicit drugs, but does consume a few alcoholic drinks in a month. He denies the use of any illicit drugs. MEDICATIONS: Present medications include allopurinol, aspirin, Plavix, Imdur, Toprol, Protonix, Flomax, Antivert, Dilaudid, heparin for DVT prophylaxis, atorvastatin, Depakote 1 g every 12 hours, insulin, Zofran, Benadryl, and nitroglycerin. PHYSICAL EXAMINATION: GENERAL: He is a well-developed, well-nourished, obese, gentleman, who is quite unkempt and has his hair dyed blue. VITAL SIGNS: Pulse 107 per minute, blood pressure 104/70 mmHg, respirations 20 per minute, and temperature 97.5 degrees Fahrenheit. HEAD: Normocephalic and atraumatic. EENT: Examination benign. NECK: No neck rigidity was observed. NEUROLOGICAL EXAMINATION: MENTAL STATUS EXAMINATION: He was alert and awake. He was oriented to person, place, and time. He was able to recall 3/3 words immediately after 1 minute and after 3 minutes. He was able to remember presidents Trump through [place] senior with hints. His mathematical skills were good. His visuospatial function was preserved. SPEECH: He had no dysarthria. LANGUAGE: He had no aphasia. CRANIAL NERVE EXAMINATION: II: The visual rosenbaum were intact to confrontation testing. III, IV & : The external ocular movements were full and the pupils 3 mm in diameter, equal, round, regular, and reactive to light. V: He had normal facial sensations and the temporales, masseters, and pterygoids functioned normally. VII: He had normal facial expressions and no facial asymmetry. VIII: He was able to hear well bilaterally and had no nystagmus. IX: The palate moved symmetrically on phonation. X: He had no hoarseness of voice. XI: The sternocleidomastoids and trapezii functioned normally. XII: The tongue was in the midline without any fasciculations or atrophy. MOTOR SYSTEM: The tone was normal in all four extremities. Examination of muscle mass revealed no focal wasting. Examination of power was exceedingly difficult to perform because of give-way weakness, but he had approximately grade 5/5 power in all muscle groups tested. SENSORY EXAMINATION: He had intact sensations to pinprick, light touch, and graphesthesia, but complained of a subjective alteration in a knee-high stocking distribution. REFLEXES: 0 at the biceps, triceps, brachioradialis, knees, and ankles. The plantar responses were flexor bilaterally. STANCE: He stood up with a wide-based stance. GAIT: He walked with a wide-based, mildly paraplegic gait. ABNORMAL MOVEMENTS: Tremor (7-8 Hz): G 0/4 at rest, increasing to G 2/4 with effort in both upper extremities. Tremor (4-5 Hz): G 0/4. Rigidity, bradykinesia, hypomimia, hypophonia: G 0/4. DIAGNOSTIC IMPRESSION: 1. Mr. Stefano Chopra is a 66-year-old, left-handed, gentleman, who does have a past history of a insult, seizure disorder since childhood, hypertension, diabetes mellitus, dyslipidemia, and hyperthyroidism, who has also coronary artery disease, for which he was admitted to the hospital. Approximately four years ago, he had a tremor involving his upper and lower extremities, thought to be related to hyperthyroidism, which responded well to decreasing his dose of Synthroid. He has had a recurrence of a similar tremor for the last four months. 2. On neurological examination, at this time, he does demonstrate problems with memory of a mild degree, globally absent reflexes, a wide based stance, give-way weakness in all four extremities, a wide based gait, and a 7-8 Hz tremor that is absent at rest and increases significantly with effort. 3. Laboratory data obtained thus far revealed that he is mildly anemic with a hemoglobin of 10.8. The chemistry panel reveals an elevated blood glucose at 145 and his hemoglobin A1c elevated to 9%. His vitamin B12 level is normal at 604. Folate level is normal at 18.8. His TSH is elevated at 11.48, but his free T4 is normal at 0.87. His urine toxicology screen is benign. 4. The patient's history and neurological examination are most compatible with an essential tremor, neuropathy involving both his lower extremities, gait disorder most probably related to his neuropathy and "generalized idiopathic epilepsy", which has responded exceedingly well to Depakote. 5. At this point in time, it is unclear as to what exactly his essential tremor is caused by. It is unclear if it may or may not be related to high valproic acid levels or due to other reasons. RECOMMENDATIONS: 1. Agree with management thus far. 2. Would correct all the patient's toxic metabolic malfunction. 3. Would treat the patient's anemia and try and get his hemoglobin up to 12 G. 4. Would get a valproic acid level to determine if the patient has high levels, which can in turn cause an essential tremor. 5. The patient should be kept as active as possible. 6. Depending on the results of the above-mentioned tests, further recommendations will be given. Thank you for entrusting me with the care of Mr. Chopra. I shall follow him with you. Jayden Munguia M.D., M.S.P.H. DR: Kimberly JOB#: [id number] MTDD
[2017-04-10 00:45] VITALS: BP 105/63
[2017-04-10] MEDS: HYDROmorphone 1mg/ml Carpuject IVP PRN ×6 (03:29→21:34)
[2017-04-10 04:24] VITALS: BP 103/60
[2017-04-10] MEDS: NovoLOG Insulin Flexpen SUBQ SCH ×4 (06:17→21:29)
[2017-04-10 08:31] LABS: ANION GAP 9 mmol/L (5-15); CALCIUM 8.6 MG/DL (8.5-10.1); CARBON DIOXIDE 28 MMOL/L (21-32); CHLORIDE 99 MMOL/L (98-107); CREATININE 2.6 MG/DL (0.55-1.30); MAGNESIUM 1.6 MG/DL (1.8-2.4); PHOSPHORUS 3.6 MG/DL (2.5-4.9); POTASSIUM 4.6 MMOL/L (3.5-5.1); SODIUM 136 MMOL/L (136-145)
[2017-04-10] MEDS: Imdur 30mg tab ORAL SCH ×2 (09:00→09:45)
[2017-04-10] MEDS: Metoprolol Succinate XL 25mg tab ORAL SCH (09:00)
[2017-04-10] MEDS: Docusate 100mg cap ORAL SCH ×2 (09:44→20:29)
[2017-04-10] MEDS: Tamsulosin 0.4mg cap ORAL SCH (09:45)
[2017-04-10] MEDS: Depakote 500mg tab ORAL SCH ×2 (09:45→20:29)
[2017-04-10] MEDS: Allopurinol 100mg Tab ORAL SCH (09:46)
[2017-04-10] MEDS: Heparin 5000 units/ml inj SUBQ SCH ×2 (09:48→20:33)
[2017-04-10] MEDS ORDERED: Lexiscan 0.4mg/5ml syringe IV ONE (10:15)
[2017-04-10 12:00] VITALS: BP 103/63
--- NOTE | 2017-04-10 12:17 | Nephrology Progress Note ---
Assessment/Plan Problem List: (1) Acute on chronic renal failure Assessment Renal failure ? Chronic Anemia, Etiology? High TSh, Hypothyroid ACS DM , high A1c HyperUrecemia Obese Plan Plan: keep BP above 100 syst Hydrate- Kidney MABEL- pending per cardiology Per orders Subjective ROS Limited/Unobtainable: No Constitutional: Reports: malaise Objective Objective Last 24 Hour Vital Signs Date Time Temp Pulse Resp B/P (MAP) Pulse Ox O2 Delivery O2 Flow Rate FiO2 04/10/17 12:08 Nasal Cannula 2.0 28 04/10/17 12:07 96 Nasal Cannula 2.0 28 04/10/17 04:24 98.4 85 18 103/60 90 Room Air 04/10/17 04:05 84 04/10/17 00:45 98.1 85 18 105/63 81 Room Air 04/09/17 23:55 87 04/09/17 20:36 95 Nasal Cannula 2.0 28 04/09/17 20:36 Nasal Cannula 2.0 28 04/09/17 20:17 98.1 103 18 108/67 98 Room Air 04/09/17 19:17 102 04/09/17 16:00 97.5 107 21 104/70 95 Room Air 04/09/17 16:00 100 Laboratory Tests 04/09/17 19:50: Ammonia 24, Valproic Acid (Depakene) Level 91 04/09/17 20:28: Arterial Blood pH 7.386, Arterial Blood Partial Pressure CO2 36.7, Arterial Blood Partial Pressure O2 64.4L, Arterial Blood HCO3 21.5L, Arterial Blood Oxygen Saturation 89.5L, Arterial Blood Base Excess -3.0, Tyler Test Positive 04/10/17 06:54: Sodium Level 136, Potassium Level 4.6, Chloride Level 99, Carbon Dioxide Level 28, Anion Gap 9, Blood Urea Nitrogen 36H, Creatinine 2.6H, Estimat Glomerular Filtration Rate 25.0, Glucose Level 183H, Calcium Level 8.6, Phosphorus Level 3.6, Magnesium Level 1.6L, Pro-B-Type Natriuretic Peptide 191H Height (Feet): 6 Height (Inches): 2.00 Weight (Pounds): 230 General Appearance: no apparent distress Objective PE not changed RANGEL PERES Apr 10, 2017 12:17
--- NOTE | 2017-04-10 12:21 | Cardiac Electrophysiology PN ---
Assessment/Plan Assessment/Plan 1. Chest pain. Ruled out for myocardial infarction. EKG shows lateral ischemia but we did not have any prior EKGs to compare with. Continue aspirin, Plavix,Toprol 25 mg carol, Lipitor as well as Imdur 30 mg daily. Echocardiogram showed Nl EF. Nuclear stress test performed, images pending. 2. Hypertension. Continue Imdur 30 mg and Toprol-XL 25 mg daily. 3. Renal failure. Creatinine was around 2, Keep off VILMA inhibitor and angiotensin receptor blockers. 4. History of seizures. 5. History of skin cancer. Subjective Subjective No chest pain or SOB. Had nuclear stress test done today.Results pending.Echo EF 60%. Objective Last 24 Hour Vital Signs Date Time Temp Pulse Resp B/P (MAP) Pulse Ox O2 Delivery O2 Flow Rate FiO2 04/10/17 12:08 Nasal Cannula 2.0 28 04/10/17 12:07 96 Nasal Cannula 2.0 28 04/10/17 04:24 98.4 85 18 103/60 90 Room Air 04/10/17 04:05 84 04/10/17 00:45 98.1 85 18 105/63 81 Room Air 04/09/17 23:55 87 04/09/17 20:36 95 Nasal Cannula 2.0 28 04/09/17 20:36 Nasal Cannula 2.0 28 04/09/17 20:17 98.1 103 18 108/67 98 Room Air 04/09/17 19:17 102 04/09/17 16:00 97.5 107 21 104/70 95 Room Air 04/09/17 16:00 100 Laboratory Tests Test 04/09/17 19:50 04/09/17 20:28 04/10/17 06:54 Ammonia 24 umol/L (11.2-31.7) Valproic Acid (Depakene) Level 91 MCG/ML (50-100) Arterial Blood pH 7.386 (7.350-7.450) Arterial Blood Partial Pressure CO2 36.7 mmHg (35.0-45.0) Arterial Blood Partial Pressure O2 64.4 mmHg (75.0-100.0) L Arterial Blood HCO3 21.5 mmol/L (22.0-26.0) L Arterial Blood Oxygen Saturation 89.5 % (92.0-98.0) L Arterial Blood Base Excess -3.0 Tyler Test Positive Sodium Level 136 MMOL/L (136-145) Potassium Level 4.6 MMOL/L (3.5-5.1) Chloride Level 99 MMOL/L (98-107) Carbon Dioxide Level 28 MMOL/L (21-32) Anion Gap 9 mmol/L (5-15) Blood Urea Nitrogen 36 mg/dL (7-18) H Creatinine 2.6 MG/DL (0.55-1.30) H Estimat Glomerular Filtration Rate 25.0 mL/min (>60) Glucose Level 183 MG/DL (74-106) H Calcium Level 8.6 MG/DL (8.5-10.1) Phosphorus Level 3.6 MG/DL (2.5-4.9) Magnesium Level 1.6 MG/DL (1.8-2.4) L Pro-B-Type Natriuretic Peptide 191 pg/mL (0-125) H Microbiology Date/Time Source Procedure Growth Status 04/08/17 11:50 Nasal Nares MRSA Culture - Final NO METHICILLIN RESISTANT STAPH AUREUS... Complete 04/08/17 11:50 Rectum VRE Culture - Final NO VANCOMYCIN RESISTANT ENTEROCOCCUS ... Complete Objective HEAD AND NECK: Showed no JVD. LUNGS: Clear. CARDIOVASCULAR: Regular S1 and S2 with no gallop or murmur. ABDOMEN: Soft. EXTREMITIES: No pitting edema. SADE MARC Apr 10, 2017 12:21
--- NOTE | 2017-04-10 12:40 | Cardiology Report ---
APPROVED REPORT EXAM: Two-dimensional and M-mode echocardiogram with Doppler and color Doppler. INDICATION Chest Pain M-Mode DIMENSIONS IVSd1.4 (0.7-1.1cm)Left Atrium (MM)3.2 (1.6-4.0cm) LVDd4.5 (3.5-5.6cm)Aortic Root3.6 (2.0-3.7cm) PWd1.1 (0.7-1.1cm)Aortic Cusp Exc.1.2 (1.5-2.0cm) IVSs2.0 cm LVDs3.1 (2.5-4.0cm) PWs1.4 cm Technically difficult study due to poor parasternal acoustical windows. Study quality precludes accurate assessment of regional wall motion. Normal left ventricular chamber size, systolic function and wall motion. Left ventricular ejection fraction estimated to be 60 %. Mild left ventricular hypertrophy. Anterior Echo-free space, may be due to pericardial fat or effusion. Mild bi-atrial enlargement. Mild right ventricular enlargement. Mild focal aortic valve sclerosis with adequate cusp excursion. Mildly thickened mitral valve leaflets with normal excursion. Mild mitral annulus and aortic root calcification. Pulmonic valve not well visualized. Normal tricuspid valve structure. IVC dilated at 2.9 cm with physiologic collapse suggestive of increased RA pressure. A color flow and spectral Doppler study was performed and revealed: No aortic regurgitation. No mitral regurgitation. Mitral diastolic velocities suggest reduced left ventricular relaxation c/w mild LV diastolic dysfunction (Grade I ). Trace tricuspid regurgitation. Tricuspid systolic velocities suggests peak right ventricular systolic pressure of 25 mmHg. No pulmonic regurgitation present.
--- NOTE | 2017-04-10 14:04 | Diagnostic Imaging Report ---
Indication: chest pain Technique: The study was conducted under the supervision of a electrical equipment assembler. lexiscan (regadenoson) infusion over 10 seconds followed by intravenous administration of 32.6 mCi of technetium 99m Myoview was performed. Three plane SPECT imaging of the heart was then performed. A resting study was performed as part of the one-day protocol with 11 mCi of technetium 99m myoview injected intravenously at that time. Three plane SPECT imaging of the heart was obtained. Comparison: None Clinical data: 1. Clinical response: Non ischemic 2. Electrocardiographic response: Non ischemic Findings: The myocardial perfusion scan demonstrates no definite fixed or reversible perfusion defects. The fracture ejection fraction is estimated at 71%. Impression: Myocardial perfusion scan is negative
[2017-04-10 14:15] VITALS: BP 150/95
[2017-04-10] MEDS ORDERED: 1/2 NS 1000ml IV ONE (14:46)
[2017-04-10] MEDS: Meclizine 25mg tab ORAL PRN (15:47)
[2017-04-10 16:00] VITALS: BP 157/92
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
[2017-04-10 16:42] LABS: ANION GAP 11 mmol/L (5-15); CALCIUM 8.4 MG/DL (8.5-10.1); CARBON DIOXIDE 27 MMOL/L (21-32); CHLORIDE 97 MMOL/L (98-107); CREATININE 2.6 MG/DL (0.55-1.30); POTASSIUM 4.4 MMOL/L (3.5-5.1); SODIUM 135 MMOL/L (136-145)
[2017-04-10 20:00] VITALS: BP 114/58
[2017-04-10] MEDS: Atorvastatin 80mg tab ORAL SCH (20:29)
[2017-04-11 04:00] VITALS: BP 120/60
[2017-04-11] MEDS: HYDROmorphone 1mg/ml Carpuject IVP PRN ×4 (04:05→21:37)
[2017-04-11] MEDS: NovoLOG Insulin Flexpen SUBQ SCH ×4 (06:40→21:30)
[2017-04-11 07:55] LABS: BASOPHILS % (AUTO) 0.4 % (0.0-2.0); EOSINOPHILS % (AUTO) 3.6 % (0.0-3.0); MEAN CORPUSCULAR HGB CONC 33.3 G/DL (32.0-36.0); MEAN CORPUSCULAR VOLUME 96 FL (80-99); MONOCYTES % (AUTO) 7.7 % (1.0-10.0); NEUTROPHILS % (AUTO) 72.3 % (45.0-75.0); PLATELET COUNT 142 K/UL (150-450); RED BLOOD COUNT 3.03 M/UL (4.70-6.10); WHITE BLOOD COUNT 8.3 K/UL (4.8-10.8)
--- NOTE | 2017-04-11 07:56 | Nephrology Progress Note ---
Assessment/Plan Problem List: (1) Acute on chronic renal failure (2) Urinary retention Assessment had urinary retention- now has abad Renal failure ? Chronic Anemia, Etiology? High TSh, Hypothyroid ACS DM , high A1c HyperUrecemia Obese Plan Plan: abad keep BP above 100 syst Hydrate- Kidney MABEL- pending per cardiology Per orders Subjective ROS Limited/Unobtainable: No Constitutional: Reports: malaise Objective Objective Last 24 Hour Vital Signs Date Time Temp Pulse Resp B/P (MAP) Pulse Ox O2 Delivery O2 Flow Rate FiO2 04/11/17 04:00 98.7 73 20 120/60 91 Room Air 04/11/17 03:45 99 04/10/17 23:35 89 04/10/17 20:33 Room Air 04/10/17 20:32 95 Room Air 04/10/17 20:00 98.2 76 21 114/58 91 Room Air 04/10/17 19:14 79 04/10/17 18:16 97.4 04/10/17 16:00 86 04/10/17 16:00 97.4 75 20 157/92 95 Room Air 04/10/17 14:15 97.5 84 20 150/95 95 Room Air 04/10/17 12:08 Nasal Cannula 2.0 28 04/10/17 12:07 96 Nasal Cannula 2.0 28 04/10/17 12:00 84 04/10/17 12:00 97.2 85 21 103/63 97 Room Air 04/10/17 09:00 150/95 04/10/17 08:00 82 Laboratory Tests 04/10/17 15:40: Sodium Level 135L, Potassium Level 4.4, Chloride Level 97L, Carbon Dioxide Level 27, Anion Gap 11, Blood Urea Nitrogen 39H, Creatinine 2.6H, Estimat Glomerular Filtration Rate 25.0, Glucose Level 231H, Calcium Level 8.4L 04/11/17 06:40: Sodium Level [Pending], Potassium Level [Pending], Chloride Level [Pending], Carbon Dioxide Level [Pending], Blood Urea Nitrogen [Pending], Creatinine [ Pending], Estimat Glomerular Filtration Rate [Pending], Glucose Level [Pending] , Calcium Level [Pending], White Blood Count [Pending], Red Blood Count [Pending ], Hemoglobin [Pending], Hematocrit [Pending], Mean Corpuscular Volume [Pending] , Mean Corpuscular Hemoglobin [Pending], Mean Corpuscular Hemoglobin Concent [ Pending], Red Cell Distribution Width [Pending], Platelet Count [Pending], Mean Platelet Volume [Pending], Neutrophils (%) (Auto) [Pending], Lymphocytes (%) ( Auto) [Pending], Monocytes (%) (Auto) [Pending], Eosinophils (%) (Auto) [Pending ], Basophils (%) (Auto) [Pending], Phosphorus Level [Pending], Magnesium Level [ Pending] Height (Feet): 6 Height (Inches): 2.00 Weight (Pounds): 230 General Appearance: no apparent distress Cardiovascular: normal rate Respiratory/Chest: lungs clear Abdomen: soft Objective PE not changed RANGEL PERES Apr 11, 2017 07:56
[2017-04-11 08:00] VITALS: BP 119/69
[2017-04-11 08:20] LABS: ANION GAP 10 mmol/L (5-15); CALCIUM 8.5 MG/DL (8.5-10.1); CARBON DIOXIDE 26 MMOL/L (21-32); CHLORIDE 98 MMOL/L (98-107); CREATININE 2.4 MG/DL (0.55-1.30); GLOMERULAR FILTRATION RATE 27.4 mL/min (>60); MAGNESIUM 1.7 MG/DL (1.8-2.4); PHOSPHORUS 3.5 MG/DL (2.5-4.9); POTASSIUM 4.5 MMOL/L (3.5-5.1); SODIUM 134 MMOL/L (136-145)
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
[2017-04-11] MEDS: Heparin 5000 units/ml inj SUBQ SCH ×2 (09:00→21:29)
[2017-04-11] MEDS: Meclizine 25mg tab ORAL PRN (09:16)
[2017-04-11] MEDS: Allopurinol 100mg Tab ORAL SCH (09:16)
[2017-04-11] MEDS: Imdur 30mg tab ORAL SCH (09:18)
[2017-04-11] MEDS: Metoprolol Succinate XL 25mg tab ORAL SCH (09:18)
[2017-04-11] MEDS: Docusate 100mg cap ORAL SCH ×2 (09:20→21:27)
[2017-04-11] MEDS: Tamsulosin 0.4mg cap ORAL SCH (09:20)
[2017-04-11] MEDS: Depakote 500mg tab ORAL SCH ×2 (09:20→21:28)
[2017-04-11 12:00] VITALS: BP 114/71
--- NOTE | 2017-04-11 13:19 | Cardiac Electrophysiology PN ---
Assessment/Plan Assessment/Plan 1. Chest pain. Ruled out for myocardial infarction. EKG shows lateral ischemia but we did not have any prior EKGs to compare with. Continue aspirin, Plavix,Toprol 25 mg carol, Lipitor as well as Imdur 30 mg daily. Echocardiogram showed Nl EF. Nuclear stress test yesterday showed no ischemia 2. Hypertension. Continue Imdur 30 mg and Toprol-XL 25 mg daily. 3. Renal failure. Creatinine was around 2, Keep off VILMA inhibitor and angiotensin receptor blockers. 4. History of seizures. 5. History of skin cancer. OK to DC from my perspective Subjective Subjective Feeling better. Had nuclear stress test yesterday that showed no ischemia or scar..Echo EF 60%. Objective Last 24 Hour Vital Signs Date Time Temp Pulse Resp B/P (MAP) Pulse Ox O2 Delivery O2 Flow Rate FiO2 04/11/17 09:18 100 119/69 04/11/17 09:18 119/69 04/11/17 08:00 97.7 100 20 119/69 93 Room Air 04/11/17 07:00 Nasal Cannula 2.0 28 04/11/17 07:00 95 Nasal Cannula 2.0 28 04/11/17 04:00 98.7 73 20 120/60 91 Room Air 04/11/17 03:45 99 04/10/17 23:35 89 04/10/17 20:33 Room Air 04/10/17 20:32 95 Room Air 04/10/17 20:00 98.2 76 21 114/58 91 Room Air 04/10/17 19:14 79 04/10/17 18:16 97.4 04/10/17 16:00 86 04/10/17 16:00 97.4 75 20 157/92 95 Room Air 04/10/17 14:15 97.5 84 20 150/95 95 Room Air Laboratory Tests Test 04/10/17 15:40 04/11/17 06:40 Sodium Level 135 MMOL/L (136-145) L 134 MMOL/L (136-145) L Potassium Level 4.4 MMOL/L (3.5-5.1) 4.5 MMOL/L (3.5-5.1) Chloride Level 97 MMOL/L (98-107) L 98 MMOL/L (98-107) Carbon Dioxide Level 27 MMOL/L (21-32) 26 MMOL/L (21-32) Anion Gap 11 mmol/L (5-15) 10 mmol/L (5-15) Blood Urea Nitrogen 39 mg/dL (7-18) H 41 mg/dL (7-18) H Creatinine 2.6 MG/DL (0.55-1.30) H 2.4 MG/DL (0.55-1.30) H Estimat Glomerular Filtration Rate 25.0 mL/min (>60) 27.4 mL/min (>60) Glucose Level 231 MG/DL (74-106) H 236 MG/DL (74-106) H Calcium Level 8.4 MG/DL (8.5-10.1) L 8.5 MG/DL (8.5-10.1) White Blood Count 8.3 K/UL (4.8-10.8) Red Blood Count 3.03 M/UL (4.70-6.10) L Hemoglobin 9.7 G/DL (14.2-18.0) L Hematocrit 29.1 % (42.0-52.0) L Mean Corpuscular Volume 96 FL (80-99) Mean Corpuscular Hemoglobin 32.0 PG (27.0-31.0) H Mean Corpuscular Hemoglobin Concent 33.3 G/DL (32.0-36.0) Red Cell Distribution Width 13.0 % (11.6-14.8) Platelet Count 142 K/UL (150-450) L Mean Platelet Volume 6.0 FL (6.5-10.1) L Neutrophils (%) (Auto) 72.3 % (45.0-75.0) Lymphocytes (%) (Auto) 16.0 % (20.0-45.0) L Monocytes (%) (Auto) 7.7 % (1.0-10.0) Eosinophils (%) (Auto) 3.6 % (0.0-3.0) H Basophils (%) (Auto) 0.4 % (0.0-2.0) Phosphorus Level 3.5 MG/DL (2.5-4.9) Magnesium Level 1.7 MG/DL (1.8-2.4) L Objective HEAD AND NECK: Showed no JVD. LUNGS: Clear. CARDIOVASCULAR: Regular S1 and S2 with no gallop or murmur. ABDOMEN: Soft. EXTREMITIES: No pitting edema. SADE MARC Apr 11, 2017 13:19
[2017-04-11 16:00] VITALS: BP 103/68
[2017-04-11 20:08] VITALS: BP 113/69
[2017-04-11] MEDS: Atorvastatin 80mg tab ORAL SCH (21:28)
[2017-04-12 00:12] VITALS: BP 105/61
[2017-04-12 04:30] VITALS: BP 158/74
[2017-04-12] MEDS: NovoLOG Insulin Flexpen SUBQ SCH ×4 (06:47→21:21)
[2017-04-12 07:53] LABS: KETONES,URINE 2+ (NEGATIVE); LEUKOCYTE ESTERASE ,URINE NEGATIVE (NEGATIVE); NITRITE,URINE NEGATIVE (NEGATIVE); PH,URINE 5 (4.5-8.0); PROTEIN,URINE 1+ (NEGATIVE); UROBILINOGEN,URINE NORMAL MG/DL (0.0-1.0)
[2017-04-12 07:57] LABS: APPEARANCE,URINE SLIGHTLY CLOUDY
[2017-04-12 08:29] VITALS: BP 115/60
[2017-04-12 08:36] LABS: BACTERIA,URINE OCCASIONAL /HPF; SQUAMOUS EPITHELIAL CELL,UR OCCASIONAL /LPF (NONE/OCC); WBC,URINE 0-2 /HPF (0 - 0)
--- NOTE | 2017-04-12 08:48 | Nephrology Progress Note ---
Assessment/Plan Problem List: (1) Acute on chronic renal failure (2) Urinary retention Assessment had urinary retention- now has abad- Cr last 2.4 Renal failure ? Chronic Anemia, Etiology? High TSh, Hypothyroid ACS DM , high A1c HyperUrecemia Obese Plan Plan: abad keep BP above 100 syst Hydrate- Kidney MABEL- pending per cardiology up Flomax dose Per orders Subjective ROS Limited/Unobtainable: No Constitutional: Reports: malaise Objective Objective Last 24 Hour Vital Signs Date Time Temp Pulse Resp B/P (MAP) Pulse Ox O2 Delivery O2 Flow Rate FiO2 04/12/17 08:29 99.1 105 20 115/60 93 Nasal Cannula 3.0 04/12/17 08:05 95 Nasal Cannula 3.0 32 04/12/17 07:00 99.2 04/12/17 06:00 102.2 04/12/17 05:00 101.8 04/12/17 04:30 103.1 102 24 158/74 94 Nasal Cannula 3.0 04/12/17 04:00 100 04/12/17 00:00 78 04/11/17 20:25 96 Nasal Cannula 3.0 32 04/11/17 20:25 Nasal Cannula 3.0 32 04/11/17 20:08 97.9 86 20 113/69 96 Nasal Cannula 3.0 04/11/17 20:00 83 04/11/17 16:00 98 04/11/17 16:00 97.9 88 20 103/68 94 Nasal Cannula 3.0 04/11/17 12:00 92 04/11/17 12:00 98.2 91 20 114/71 95 Nasal Cannula 3.0 04/11/17 09:18 100 119/69 04/11/17 09:18 119/69 Laboratory Tests 04/12/17 06:50: Urine Color Pale yellow, Urine Appearance Slightly cloudy, Urine pH 5, Urine Specific [place] 1.010, Urine Protein 1+H, Urine Glucose (UA) 4+H, Urine Ketones 2+H, Urine Occult Blood 3+H, Urine Nitrite Negative, Urine Bilirubin Negative, Urine Urobilinogen Normal, Urine Leukocyte Esterase Negative, Urine RBC 5-10H, Urine WBC 0-2, Urine Squamous Epithelial Cells Occasional, Urine Bacteria Occasional Height (Feet): 6 Height (Inches): 2.00 Weight (Pounds): 230 General Appearance: no apparent distress Objective PE not changed RANGEL PERES Apr 12, 2017 08:48
[2017-04-12] MEDS: Depakote 500mg tab ORAL SCH ×2 (09:23→21:20)
[2017-04-12] MEDS: Allopurinol 100mg Tab ORAL SCH (09:23)
[2017-04-12] MEDS: Tamsulosin 0.4mg cap ORAL SCH ×2 (09:24→17:18)
[2017-04-12] MEDS: Docusate 100mg cap ORAL SCH ×2 (09:24→21:20)
[2017-04-12] MEDS: Metoprolol Succinate XL 25mg tab ORAL SCH (09:24)
[2017-04-12] MEDS: Imdur 30mg tab ORAL SCH (09:24)
[2017-04-12 09:53] LABS: MEAN CORPUSCULAR HEMOGLOBIN 32.4 PG (27.0-31.0); MEAN CORPUSCULAR HGB CONC 33.2 G/DL (32.0-36.0); MEAN CORPUSCULAR VOLUME 98 FL (80-99); MEAN PLATELET VOLUME 5.9 FL (6.5-10.1); PLATELET COUNT 128 K/UL (150-450); RED BLOOD COUNT 2.82 M/UL (4.70-6.10); RED CELL DISTRIBUTION WIDTH 13.3 % (11.6-14.8); WHITE BLOOD COUNT 9.2 K/UL (4.8-10.8)
[2017-04-12] MEDS: Heparin 5000 units/ml inj SUBQ SCH ×2 (09:54→21:22)
[2017-04-12 10:43] LABS: ANION GAP 9 mmol/L (5-15); CALCIUM 8.5 MG/DL (8.5-10.1); CARBON DIOXIDE 27 MMOL/L (21-32); CHLORIDE 102 MMOL/L (98-107); CREATININE 2.2 MG/DL (0.55-1.30); GLOMERULAR FILTRATION RATE 30.3 mL/min (>60); MAGNESIUM 1.9 MG/DL (1.8-2.4); PHOSPHORUS 2.8 MG/DL (2.5-4.9); POTASSIUM 4.8 MMOL/L (3.5-5.1); SODIUM 138 MMOL/L (136-145)
--- NOTE | 2017-04-12 10:59 | Diagnostic Imaging Report ---
Indication: Pain Comparison: 04/08/2017 Findings: Single view of the chest is obtained. Cardiac size is borderline enlarged. There is increasing hazy density noted in the medial right lung base concerning for developing infiltrate. There is increased atelectasis in the left mid to lower lung. Pulmonary vasculature is normal. Impression: Developing infiltrate and/or atelectasis in the medial right lung base. New atelectasis in the left mid to lower lung.
[2017-04-12 11:15] LABS: ANISOCYTOSIS 1+; BAND NEUTROPHILS % (MANUAL) 4 % (0-8); BASOPHILS % (MANUAL) 0 % (0-2); EOSINOPHILS % (MANUAL) 0 % (0-3); HYPOCHROMASIA 2+; LYMPHOCYTES % (MANUAL) 8 % (20-45); NEUTROPHILS % (MANUAL) 81 % (45-75); PLATELET ESTIMATE DECREASED; PLATELET MORPHOLOGY NORMAL; SPHEROCYTES 1+; TOTAL CELLS COUNTED 100
[2017-04-12 11:32] VITALS: BP 130/64
--- NOTE | 2017-04-12 13:12 | General Progress Note ---
Assessment/Plan Problem List: (1) GRZEGORZ on CKD (2) Chest pain ICD Codes: R07.9 - Chest pain, unspecified SNOMED: 07636284 (3) Hyperglycemia ICD Codes: R73.9 - Hyperglycemia, unspecified SNOMED: 52510148 (4) H/o [place] in 2014 per patient (5) CAD s/p 8 stents per patient (6) HTN (hypertension) ICD Codes: I10 - Essential (primary) hypertension SNOMED: 95193485 (7) HLD (hyperlipidemia) ICD Codes: E78.5 - Hyperlipidemia, unspecified SNOMED: 34962352 (8) GERD (gastroesophageal reflux disease) ICD Codes: K21.9 - Gastro-esophageal reflux disease without esophagitis SNOMED: 956870521 (9) BPH (benign prostatic hyperplasia) ICD Codes: N40.0 - Benign prostatic hyperplasia without lower urinary tract symptoms SNOMED: 135881360 (10) DM2 (diabetes mellitus, type 2) ICD Codes: E11.9 - Type 2 diabetes mellitus without complications SNOMED: 26266819 (11) Tremor Assessment & Plan: likely essential tremor per neuro ICD Codes: R25.1 - Tremor, unspecified SNOMED: 24622630 (12) Urinary retention ICD Codes: R33.9 - Retention of urine, unspecified SNOMED: 792950421 Status: stable Assessment/Plan Monitor on tele Serial trop neg x 3 F/u TTE--EF 60% Appreciate cardiology consult F/u nuclear stress test--neg Appreicate renal consult Trend BMP and lytes F/u renal U/S Trial of IVFs Abad placed given urinary retention Cont home meds including ASA, plavix, statin SSI Neuro consulted given tremor D/w cardiology switching from MTP to propranolol given essential tremor but cardiology does not recommend it given pt w/ cardiac history and MTP is preferred Pain control, supportive care, bowel regimen HSQ for DVT ppx DC pending improvement in GRZEGORZ, improvement in urinary retention FULL CODE D/w pt, RN, cardiology, renal, SW/CM regarding mgmt and dispo Subjective Date patient seen: Apr 11, 2017 Time patient seen: 13:12 ROS Limited/Unobtainable: No Constitutional: Reports: no symptoms HEENT: Reports: no symptoms Cardiovascular: Reports: chest pain Respiratory: Reports: no symptoms Genitourinary: Reports: no symptoms Neurologic/Psychiatric: Reports: tremors Endocrine: Reports: no symptoms Hematologic/Lymphatic: Reports: no symptoms Allergies: Coded Allergies: ACETAMINOPHEN (Unverified Allergy, Unknown, 05/18/14) unknown reaction CHLORPROMAZINE (Unverified Allergy, Unknown, 05/18/14) HYDROCODONE (Unverified Allergy, Unknown, 05/18/14) unknown reaction IBUPROFEN (Unverified Allergy, Unknown, 05/18/14) IMIPRAMINE (Unverified Allergy, Unknown, shaking, 05/18/14) METHSUXIMIDE (Unverified Allergy, Unknown, 05/18/14) METHYLPHENIDATE (Unverified Allergy, Unknown, 05/18/14) All Systems: reviewed and negative except above Subjective No acute o/n events Nuclear cardiac stress test neg Pt noted to be retaining urine so abad catheter placed SCr down to 2.4 today Pt states chest pain improving. Complains more of back and leg pain from spine issue and fibular fx. States PCP has referred him to ortho but he is awaiting insurance authorization to be seen. Denies f/c, n/v, d/c, SOB, abd pain C/o tremor of hands that has been going on for some time and he has shown his PCP. Pt concerned if it is Parkinson's and would like to see neuro Pt states has a history of prior urinary retention requiring abad which improved on own. States has history of "stricture" Objective Last 24 Hour Vital Signs Date Time Temp Pulse Resp B/P (MAP) Pulse Ox O2 Delivery O2 Flow Rate FiO2 04/12/17 11:32 97.7 93 20 130/64 93 Nasal Cannula 2.0 04/12/17 09:24 105 115/60 04/12/17 09:24 115/60 04/12/17 08:29 99.1 105 20 115/60 93 Nasal Cannula 3.0 04/12/17 08:05 95 Nasal Cannula 3.0 32 04/12/17 08:00 103 04/12/17 07:00 99.2 04/12/17 06:00 102.2 04/12/17 05:00 101.8 04/12/17 04:30 103.1 102 24 158/74 94 Nasal Cannula 3.0 04/12/17 04:00 100 04/12/17 00:00 78 04/11/17 20:25 96 Nasal Cannula 3.0 32 04/11/17 20:25 Nasal Cannula 3.0 32 04/11/17 20:08 97.9 86 20 113/69 96 Nasal Cannula 3.0 04/11/17 20:00 83 04/11/17 16:00 98 04/11/17 16:00 97.9 88 20 103/68 94 Nasal Cannula 3.0 Intake and Output 04/12/17 04/13/17 19:00 07:00 Intake Total 240 ml Balance 240 ml Intake Oral 240 ml Laboratory Tests 04/12/17 06:50: Urine Color Pale yellow, Urine Appearance Slightly cloudy, Urine pH 5, Urine Specific [place] 1.010, Urine Protein 1+H, Urine Glucose (UA) 4+H, Urine Ketones 2+H, Urine Occult Blood 3+H, Urine Nitrite Negative, Urine Bilirubin Negative, Urine Urobilinogen Normal, Urine Leukocyte Esterase Negative, Urine RBC 5-10H, Urine WBC 0-2, Urine Squamous Epithelial Cells Occasional, Urine Bacteria Occasional 04/12/17 08:20: White Blood Count 9.2, Red Blood Count 2.82L, Hemoglobin 9.1L, Hematocrit 27.5L , Mean Corpuscular Volume 98, Mean Corpuscular Hemoglobin 32.4H, Mean Corpuscular Hemoglobin Concent 33.2, Red Cell Distribution Width 13.3, Platelet Count 128L, Mean Platelet Volume 5.9L, Neutrophils (%) (Auto) , Lymphocytes (%) (Auto) , Monocytes (%) (Auto) , Eosinophils (%) (Auto) , Basophils (%) (Auto) , Differential Total Cells Counted 100, Neutrophils % (Manual) 81H, Lymphocytes % (Manual) 8L, Monocytes % (Manual) 7, Eosinophils % (Manual) 0, Basophils % ( Manual) 0, Band Neutrophils 4, Platelet Estimate DecreasedL, Platelet Morphology Normal, Hypochromasia 2+, Anisocytosis 1+, Spherocytes 1+, Sodium Level 138, Potassium Level 4.8, Chloride Level 102, Carbon Dioxide Level 27, Anion Gap 9, Blood Urea Nitrogen 37H, Creatinine 2.2H, Estimat Glomerular Filtration Rate 30.3, Glucose Level 267H, Lactic Acid Level 1.10, Calcium Level 8.5, Phosphorus Level 2.8, Magnesium Level 1.9 Height (Feet): 6 Height (Inches): 2.00 Weight (Pounds): 230 Objective General: alert, cooperative, no distress, appears stated age Head: normocephalic, without obvious abnormality, atraumatic Eyes: conjunctivae/corneas clear. PERRL, EOM's intact Throat: lips, mucosa, and tongue normal. MMM Neck: supple, symmetrical, trachea midline, and no JVD Lungs: clear to auscultation bilaterally Heart: regular rate and rhythm, S1, S2 normal, no murmur, click, rub or gallop Abdomen: soft, non-tender, non-distended, bowel sounds normal; no masses or organomegaly Extremities: extremities normal, atraumatic, no cyanosis or edema Pulses: 2+ and symmetric Skin: skin color, texture, turgor normal; no rashes or lesions Neurologic: grossly normal, no focal deficits Catie Dillon M.D. Apr 12, 2017 13:12
[2017-04-12] MEDS: Azithromycin 250mg tab ORAL SCH (14:17)
[2017-04-12] MEDS: cefTRIAXone 1 GM in D5W 55 ML IVPB SCH (14:17)
[2017-04-12 15:45] VITALS: BP 117/75
--- NOTE | 2017-04-12 16:16 | Infectious Diseases Prog Note ---
Assessment/Plan Assessment/Plan Full consult dictated: A) 1) cap pna, fevers, r/o influenza/viral syndrome 2) pmh noted 3) allergies noted P) 1) rocephin and azithromycin 2) check sc, labs, influenza, chest x-ray, serology 3) thank you Subjective Allergies: Coded Allergies: ACETAMINOPHEN (Unverified Allergy, Unknown, 05/18/14) unknown reaction CHLORPROMAZINE (Unverified Allergy, Unknown, 05/18/14) HYDROCODONE (Unverified Allergy, Unknown, 05/18/14) unknown reaction IBUPROFEN (Unverified Allergy, Unknown, 05/18/14) IMIPRAMINE (Unverified Allergy, Unknown, shaking, 05/18/14) METHSUXIMIDE (Unverified Allergy, Unknown, 05/18/14) METHYLPHENIDATE (Unverified Allergy, Unknown, 05/18/14) Objective Vital Signs Last 24 Hour Vital Signs Date Time Temp Pulse Resp B/P (MAP) Pulse Ox O2 Delivery O2 Flow Rate FiO2 04/12/17 15:45 98.1 71 20 117/75 94 Nasal Cannula 2.0 04/12/17 12:00 90 04/12/17 11:32 97.7 93 20 130/64 93 Nasal Cannula 2.0 04/12/17 09:24 105 115/60 04/12/17 09:24 115/60 04/12/17 08:29 99.1 105 20 115/60 93 Nasal Cannula 3.0 04/12/17 08:05 95 Nasal Cannula 3.0 32 04/12/17 08:00 103 04/12/17 07:00 99.2 04/12/17 06:00 102.2 04/12/17 05:00 101.8 04/12/17 04:30 103.1 102 24 158/74 94 Nasal Cannula 3.0 04/12/17 04:00 100 04/12/17 00:00 78 04/11/17 20:25 96 Nasal Cannula 3.0 32 04/11/17 20:25 Nasal Cannula 3.0 32 04/11/17 20:08 97.9 86 20 113/69 96 Nasal Cannula 3.0 04/11/17 20:00 83 Height (Feet): 6 Height (Inches): 2.00 Weight (Pounds): 230 Laboratory Tests Test 04/12/17 06:50 04/12/17 08:20 Urine Color Pale yellow Urine Appearance Slightly cloudy Urine pH 5 (4.5-8.0) Urine Specific [place] 1.010 (1.005-1.035) Urine Protein 1+ (NEGATIVE) H Urine Glucose (UA) 4+ (NEGATIVE) H Urine Ketones 2+ (NEGATIVE) H Urine Occult Blood 3+ (NEGATIVE) H Urine Nitrite Negative (NEGATIVE) Urine Bilirubin Negative (NEGATIVE) Urine Urobilinogen Normal MG/DL (0.0-1.0) Urine Leukocyte Esterase Negative (NEGATIVE) Urine RBC 5-10 /HPF (0 - 0) H Urine WBC 0-2 /HPF (0 - 0) Urine Squamous Epithelial Cells Occasional /LPF Urine Bacteria Occasional /HPF (NONE) White Blood Count 9.2 K/UL (4.8-10.8) Red Blood Count 2.82 M/UL (4.70-6.10) L Hemoglobin 9.1 G/DL (14.2-18.0) L Hematocrit 27.5 % (42.0-52.0) L Mean Corpuscular Volume 98 FL (80-99) Mean Corpuscular Hemoglobin 32.4 PG (27.0-31.0) H Mean Corpuscular Hemoglobin Concent 33.2 G/DL (32.0-36.0) Red Cell Distribution Width 13.3 % (11.6-14.8) Platelet Count 128 K/UL (150-450) L Mean Platelet Volume 5.9 FL (6.5-10.1) L Neutrophils (%) (Auto) % (45.0-75.0) Lymphocytes (%) (Auto) % (20.0-45.0) Monocytes (%) (Auto) % (1.0-10.0) Eosinophils (%) (Auto) % (0.0-3.0) Basophils (%) (Auto) % (0.0-2.0) Differential Total Cells Counted 100 Neutrophils % (Manual) 81 % (45-75) H Lymphocytes % (Manual) 8 % (20-45) L Monocytes % (Manual) 7 % (1-10) Eosinophils % (Manual) 0 % (0-3) Basophils % (Manual) 0 % (0-2) Band Neutrophils 4 % (0-8) Platelet Estimate Decreased L Platelet Morphology Normal Hypochromasia 2+ Anisocytosis 1+ Spherocytes 1+ Sodium Level 138 MMOL/L (136-145) Potassium Level 4.8 MMOL/L (3.5-5.1) Chloride Level 102 MMOL/L (98-107) Carbon Dioxide Level 27 MMOL/L (21-32) Anion Gap 9 mmol/L (5-15) Blood Urea Nitrogen 37 mg/dL (7-18) H Creatinine 2.2 MG/DL (0.55-1.30) H Estimat Glomerular Filtration Rate 30.3 mL/min (>60) Glucose Level 267 MG/DL (74-106) H Lactic Acid Level 1.10 mmol/L (0.66-2.22) Calcium Level 8.5 MG/DL (8.5-10.1) Phosphorus Level 2.8 MG/DL (2.5-4.9) Magnesium Level 1.9 MG/DL (1.8-2.4) Current Medications Medications (Trade) Dose Ordered Sig/Breanna Route PRN Reason Start Time Stop Time Status Last Admin Dose Admin Allopurinol (Zyloprim) 200 mg DAILY ORAL 04/09/17 16:45 05/09/17 16:44 04/12/17 09:23 Aspirin (ASA) 325 mg DAILY ORAL 04/09/17 09:00 05/09/17 08:59 04/12/17 09:23 Atorvastatin Calcium (Lipitor) 80 mg BEDTIME ORAL 04/08/17 21:00 05/08/17 20:59 04/11/17 21:28 Azithromycin (Zithromax) 500 mg DAILY ORAL 04/12/17 14:00 04/19/17 13:59 04/12/17 14:17 Ceftriaxone Sodium 1 gm/ Dextrose 55 ml @ 110 mls/hr Q24H IVPB 04/12/17 14:00 04/19/17 13:59 04/12/17 14:17 Cetylpyridinium Chloride (Cepacol) 1 lozenge EVERY 2 HOURS PRN AIDE To Patient Comfort 04/11/17 22:30 05/11/17 22:29 04/11/17 23:27 Clopidogrel Bisulfate (Plavix) 75 mg DAILY ORAL 04/09/17 09:00 05/09/17 08:59 04/12/17 09:24 Dextrose (Dextrose 50%) STAT PRN IV Hypoglycemia 04/08/17 16:15 05/08/17 16:14 Diphenhydramine HCl (Benadryl) 25 mg Q6H PRN ORAL Itching/Pruritis 04/08/17 16:15 05/08/17 16:14 04/11/17 21:36 Divalproex Sodium (Depakote) 1,000 mg Q12HR ORAL 04/08/17 21:00 05/08/17 20:59 04/12/17 09:23 Docusate Sodium (Colace) 100 mg EVERY 12 HOURS ORAL 04/08/17 21:00 05/08/17 20:59 04/12/17 09:24 Heparin Sodium (Porcine) (Heparin 5000 units/ml) 5,000 units EVERY 12 HOURS SUBQ 04/12/17 10:00 05/12/17 09:59 04/12/17 09:54 Hydromorphone HCl (Dilaudid) 1 mg Q4H PRN IVP Severe Breakthru Pain (>7) 04/08/17 21:30 04/15/17 21:29 04/11/17 21:37 Hydromorphone HCl (Dilaudid) 2 mg Q4H PRN ORAL Moderate Pain (Pain Scale 4-6) 04/08/17 22:00 04/15/17 21:59 04/09/17 21:56 Insulin Aspart (NovoLOG) BEFORE MEALS AND HS SUBQ 04/08/17 17:30 05/08/17 17:29 04/12/17 11:46 Isosorbide Mononitrate (Imdur) 30 mg DAILY ORAL 04/09/17 09:00 05/09/17 08:59 04/12/17 09:24 Meclizine HCl (Antivert) 25 mg Q6H PRN ORAL for dizziness 04/08/17 23:00 05/08/17 22:59 04/11/17 09:16 Metoprolol Succinate (Toprol XL) 25 mg DAILY ORAL 04/09/17 09:00 05/09/17 08:59 04/12/17 09:24 Nitroglycerin (Ntg) 0.4 mg Q5M PRN SL CHEST PAIN 04/08/17 16:15 05/08/17 16:14 Ondansetron HCl (Zofran) 4 mg Q6H PRN IVP Nausea & Vomiting 04/08/17 16:15 05/08/17 16:14 Pantoprazole (Protonix) 40 mg DAILY ORAL 04/09/17 09:00 05/09/17 08:59 04/12/17 09:23 Sodium Chloride 1,000 ml @ 75 mls/hr [id number] IV 04/12/17 12:45 05/12/17 12:44 04/12/17 12:49 Tamsulosin HCl (Flomax) 0.4 mg BID ORAL 04/12/17 09:00 05/09/17 08:59 04/12/17 09:24 ADAIR KEY Apr 12, 2017 16:16
[2017-04-12 20:22] VITALS: BP 125/65
[2017-04-12] MEDS ORDERED: Heparin 5000 units/ml inj SUBQ SCH (21:00)
[2017-04-12] MEDS: Atorvastatin 80mg tab ORAL SCH (21:20)
[2017-04-12] MEDS ORDERED: Tubing IV Secondary IV ONE (22:47)
[2017-04-12] MEDS ORDERED: NS 275ml ONE (22:47)
--- NOTE | 2017-04-12 23:59 | General Progress Note ---
Assessment/Plan Problem List: (1) GRZEGORZ on CKD (2) Chest pain ICD Codes: R07.9 - Chest pain, unspecified SNOMED: 08209322 (3) Hyperglycemia ICD Codes: R73.9 - Hyperglycemia, unspecified SNOMED: 19758285 (4) H/o [place] in 2014 per patient (5) CAD s/p 8 stents per patient (6) HTN (hypertension) ICD Codes: I10 - Essential (primary) hypertension SNOMED: 84526304 (7) HLD (hyperlipidemia) ICD Codes: E78.5 - Hyperlipidemia, unspecified SNOMED: 32218829 (8) GERD (gastroesophageal reflux disease) ICD Codes: K21.9 - Gastro-esophageal reflux disease without esophagitis SNOMED: 393736745 (9) BPH (benign prostatic hyperplasia) ICD Codes: N40.0 - Benign prostatic hyperplasia without lower urinary tract symptoms SNOMED: 176407299 (10) DM2 (diabetes mellitus, type 2) ICD Codes: E11.9 - Type 2 diabetes mellitus without complications SNOMED: 66561135 (11) Tremor Assessment & Plan: likely essential tremor per neuro ICD Codes: R25.1 - Tremor, unspecified SNOMED: 32929718 (12) Urinary retention ICD Codes: R33.9 - Retention of urine, unspecified SNOMED: 142347475 (13) Hyponatremia ICD Codes: E87.1 - Hypo-osmolality and hyponatremia SNOMED: 47156709 (14) Hypomagnesemia ICD Codes: E83.42 - Hypomagnesemia SNOMED: 173649563 (15) Right pulmonary infiltrate on CXR Assessment & Plan: CAP vs HAP ICD Codes: R91.8 - Other nonspecific abnormal finding of lung field SNOMED: 546309346, 064618320 Status: stable Assessment/Plan Monitor on tele Serial trop neg x 3 F/u TTE--EF 60% Appreciate cardiology consult F/u nuclear stress test--neg Appreciate renal consult Trend BMP and lytes F/u renal U/S Trial of IVFs Abad placed given urinary retention Flomax increased to 0.4mg BID Cont home meds including ASA, plavix, statin SSI Neuro consulted given tremor D/w cardiology switching from MTP to propranolol given essential tremor but cardiology does not recommend it given pt w/ cardiac history and MTP is preferred ID consulted given fevers Pulm consulted given R lung infiltrate on CXR Empiric ceftriaxone and azithro (04/12-) per ID Pain control, supportive care, bowel regimen HSQ for DVT ppx DC pending improvement in GRZEGORZ, improvement in urinary retention FULL CODE D/w pt, RN, cardiology, renal, SW/CM regarding mgmt and dispo Subjective Date patient seen: Apr 12, 2017 Time patient seen: 15:11 ROS Limited/Unobtainable: No Constitutional: Reports: fever, malaise HEENT: Reports: no symptoms Cardiovascular: Reports: chest pain Respiratory: Reports: shortness of breath Gastrointestinal/Abdominal: Reports: no symptoms Genitourinary: Reports: no symptoms Neurologic/Psychiatric: Reports: no symptoms Endocrine: Reports: no symptoms Hematologic/Lymphatic: Reports: no symptoms Allergies: Coded Allergies: ACETAMINOPHEN (Unverified Allergy, Unknown, 05/18/14) unknown reaction CHLORPROMAZINE (Unverified Allergy, Unknown, 05/18/14) HYDROCODONE (Unverified Allergy, Unknown, 05/18/14) unknown reaction IBUPROFEN (Unverified Allergy, Unknown, 05/18/14) IMIPRAMINE (Unverified Allergy, Unknown, shaking, 05/18/14) METHSUXIMIDE (Unverified Allergy, Unknown, 05/18/14) METHYLPHENIDATE (Unverified Allergy, Unknown, 05/18/14) All Systems: reviewed and negative except above Subjective Pt w/ fever to 102 overnight Fever workup sent SCr down to 2.2 Hgb downtrending to 9.1 CXR w/ R lung infiltrate Pt states chest pain improving. Complains more of back and leg pain from spine issue and fibular fx. [facility] PCP has referred him to ortho but he is awaiting insurance authorization to be seen. Denies f/c, n/v, d/c, abd pain C/o tremor of hands that has been going on for some time and he has shown his PCP. Pt concerned if it is Parkinson's and would like to see neuro Pt states has a history of prior urinary retention requiring abad which improved on own. States has history of "stricture Objective Last 24 Hour Vital Signs Date Time Temp Pulse Resp B/P (MAP) Pulse Ox O2 Delivery O2 Flow Rate FiO2 04/12/17 20:22 97.9 76 20 125/65 97 Nasal Cannula 2.0 04/12/17 20:20 96 Nasal Cannula 2.0 28 11/12/17 20:20 Nasal Cannula 2.0 28 04/12/17 20:00 73 04/12/17 16:00 72 04/12/17 15:45 98.1 71 20 117/75 94 Nasal Cannula 2.0 04/12/17 12:00 90 04/12/17 11:32 97.7 93 20 130/64 93 Nasal Cannula 2.0 04/12/17 09:24 105 115/60 04/12/17 09:24 115/60 04/12/17 08:29 99.1 105 20 115/60 93 Nasal Cannula 3.0 04/12/17 08:05 95 Nasal Cannula 3.0 32 04/12/17 08:00 103 04/12/17 07:00 99.2 04/12/17 06:00 102.2 04/12/17 05:00 101.8 04/12/17 04:30 103.1 102 24 158/74 94 Nasal Cannula 3.0 04/12/17 04:00 100 04/12/17 00:00 78 Intake and Output 04/12/17 04/13/17 19:00 07:00 Intake Total 1230 ml Output Total 400 ml Balance 830 ml Intake Oral 600 ml IV Total 630 ml Output Urine Total 400 ml Laboratory Tests 04/12/17 06:50: Urine Color Pale yellow, Urine Appearance Slightly cloudy, Urine pH 5, Urine Specific [place] 1.010, Urine Protein 1+H, Urine Glucose (UA) 4+H, Urine Ketones 2+H, Urine Occult Blood 3+H, Urine Nitrite Negative, Urine Bilirubin Negative, Urine Urobilinogen Normal, Urine Leukocyte Esterase Negative, Urine RBC 5-10H, Urine WBC 0-2, Urine Squamous Epithelial Cells Occasional, Urine Bacteria Occasional 04/12/17 08:20: White Blood Count 9.2, Red Blood Count 2.82L, Hemoglobin 9.1L, Hematocrit 27.5L , Mean Corpuscular Volume 98, Mean Corpuscular Hemoglobin 32.4H, Mean Corpuscular Hemoglobin Concent 33.2, Red Cell Distribution Width 13.3, Platelet Count 128L, Mean Platelet Volume 5.9L, Neutrophils (%) (Auto) , Lymphocytes (%) (Auto) , Monocytes (%) (Auto) , Eosinophils (%) (Auto) , Basophils (%) (Auto) , Differential Total Cells Counted 100, Neutrophils % (Manual) 81H, Lymphocytes % (Manual) 8L, Monocytes % (Manual) 7, Eosinophils % (Manual) 0, Basophils % ( Manual) 0, Band Neutrophils 4, Platelet Estimate DecreasedL, Platelet Morphology Normal, Hypochromasia 2+, Anisocytosis 1+, Spherocytes 1+, Sodium Level 138, Potassium Level 4.8, Chloride Level 102, Carbon Dioxide Level 27, Anion Gap 9, Blood Urea Nitrogen 37H, Creatinine 2.2H, Estimat Glomerular Filtration Rate 30.3, Glucose Level 267H, Lactic Acid Level 1.10, Calcium Level 8.5, Phosphorus Level 2.8, Magnesium Level 1.9, Urine Legionella Antigen [ Pending], Mycoplasma pneumoniae IgG Antibody [Pending], Mycoplasma pneumoniae IgM Ab Titer [Pending] Height (Feet): 6 Height (Inches): 2.00 Weight (Pounds): 230 Objective General: alert, cooperative, no distress, appears stated age Head: normocephalic, without obvious abnormality, atraumatic Eyes: conjunctivae/corneas clear. PERRL, EOM's intact Throat: lips, mucosa, and tongue normal. MMM Neck: supple, symmetrical, trachea midline, and no JVD Lungs: clear to auscultation bilaterally Heart: regular rate and rhythm, S1, S2 normal, no murmur, click, rub or gallop Abdomen: soft, non-tender, non-distended, bowel sounds normal; no masses or organomegaly Extremities: extremities normal, atraumatic, no cyanosis or edema Pulses: 2+ and symmetric Skin: skin color, texture, turgor normal; no rashes or lesions Neurologic: grossly normal, no focal deficits Catie Dillon M.D. Apr 12, 2017 23:59
[2017-04-13] VITALS (7 sets, daily range): BP systolic 105–169; BP diastolic 60–86
--- NOTE | 2017-04-13 03:45 | Consultation ---
DATE OF CONSULTATION: 04/12/2017 INFECTIOUS DISEASES CONSULTATION CONSULTING PHYSICIAN: Inocencio Armstrong M.D. ATTENDING PHYSICIAN: Blair Nick M.D. I was asked by Dr. Haddad to see this patient. REASON FOR CONSULTATION: Pneumonia and fevers. CHIEF COMPLAINT: The patient's chief complaint coming in is acute coronary syndrome. HISTORY OF PRESENT ILLNESS: This is a 66-year-old male, who comes in to [facility] with chest pain, ruling out acute coronary syndrome. The patient is being worked out for that per Cardiology. He is also being seen by Neurology and Nephrology. The patient now has developed fevers as high as 103.1. Infectious Diseases consultation was requested. Chest x-ray shows infiltrates. Cultures have been ordered. Infectious Diseases consultation was requested for antibiotic management. The patient will be continued on IV Rocephin and azithromycin antibiotics pending workup. Case was discussed with Dr. Haddad. MAR was noted. Orders were noted. Notes and records were reviewed. Case was discussed with the RN. Case was discussed with the patient. PAST MEDICAL HISTORY: The patient's past medical history includes the history of the following. The patient has a past medical history of coronary artery disease, status post stents, history of diabetes, hypertension, hyperlipidemia, GERD, and BPH. History of ID in addition to CAD. ALLERGIES: Acetaminophen, chlorpromazine, hydrocodone, ibuprofen, imipramine, methsuximide, and methylphenidate. SOCIAL HISTORY: He lives in an assisted living facility. There is no mention of smoking. FAMILY HISTORY: Noncontributory. REVIEW OF SYSTEMS: CONSTITUTIONAL: The patient has fevers, somewhat lethargic, but he is responsive and seems to be somewhat oriented. Generalized weakness. No fevers, chills, night sweats, or weight loss. HEAD AND NECK: No head pain or neck pain. CARDIAC: No chest pain. GASTROINTESTINAL: No nausea, vomiting, or diarrhea. GENITOURINARY: No dysuria or frequency. PULMONARY: Mild cough. No significant secretions or hemoptysis. SKIN: No rash. EXTREMITIES: No extremity pain. NEUROLOGIC: No seizures. PHYSICAL EXAMINATION: VITAL SIGNS: T-max is 103.1, temperature now is 98.1, pulse rate is 70, respiratory rate 20, blood pressure is 113/75, and saturation 94%. Pulse rate has been as high as 105. Temperature has been as high as 103.1. GENERAL: Arousable, opens eyes, and responsive. HEAD AND NECK: Oral exam, no thrush. Eye exam, no icterus. Normocephalic. No facial droop. No neck stiffness. Neck is supple. No JVD. LUNGS: Few bilateral rhonchi and rales, possibly more on the right. HEART: Regular. No gallop or murmur. ABDOMEN: Soft. Positive bowel sounds. Nontender. SKIN: No rash. MUSCULOSKELETAL: No effusion. EXTREMITIES: Legs are without cellulitis. PERIPHERAL VASCULAR: No cyanosis or gangrene. RECTAL: Deferred. GENITOURINARY: No [place]. LINES: Line sites without phlebitis. NEUROLOGIC: Generalized weakness, responsive. LABORATORY AND DIAGNOSTIC DATA: Laboratory data is as follows: Creatinine is 2.2, white count is 9.2, hemoglobin 9.1, elevated neutrophils are noted. UA with leukocyte esterase negative. Blood cultures are pending. Sputum culture is pending. Initial chest x-ray shows no acute findings, however, chest x-ray now shows developing infiltrate in the right lung base. Cultures and serology were noted. Influenza screen has been ordered. ASSESSMENT AND PLAN: 1. The patient has likely pneumonia, most likely it is a community-acquired pneumonia. Rule out underlying viral illness such as influenza. Even though initial x-ray was negative, most likely if he does have a community-acquired pneumonia, he probably after IV fluid hydration. The patient will be placed on ceftriaxone and azithromycin to cover community-acquired pneumonia. Check influenza screen. Check Legionella and mycoplasma. Check sputum culture. Check followup labs and chest x-ray. Continue Rocephin and azithromycin to cover community-acquired pneumonia and fevers for now pending final workup. 2. Rule out also underlying occult sepsis with temperature of 102.2 and elevated heart rate and systemic inflammatory response syndrome criteria. Check cultures. Continue antibiotics, Rocephin and azithromycin. 3. Tachycardia. 4. Elevated creatinine. 5. Acute kidney injury. 6. Coronary artery disease and myocardial infarction. 7. Acute coronary syndrome and chest pain. 8. History of cardiac stents. 9. Diabetes. 10. Hypertension. 11. Hyperlipidemia. 12. Gastroesophageal reflux disease. 13. Benign prostatic hypertrophy. 14. Past medical history as noted. 15. The patient lives in an assisted living facility. Social history is otherwise negative. 16. MAR was noted. 17. Case was discussed with RN. 18. Family history is noncontributory. 19. Continue treatment per primary consultants. 20. Skin care protocol. 21. Notes and records were noted. 22. The patient is being evaluated for tremor by Neurology. 23. History of anemia. 24. Case was discussed with Dr. Haddad. Thank you for this consultation. I will follow. Inocencio Armstrong M.D. DR: HERNANDEZ JOB#: [id number] CC: ANGELIC
[2017-04-13] MEDS: NovoLOG Insulin Flexpen SUBQ SCH ×4 (06:47→21:04)
[2017-04-13 08:19] LABS: ALANINE AMINOTRANSFERASE 20 U/L (12-78); ALBUMIN/GLOBULIN RATIO 0.7 (1.0-2.7); ANION GAP 10 mmol/L (5-15); ASPARTATE AMINO TRANSFERASE 26 U/L (15-37); CALCIUM 8.7 MG/DL (8.5-10.1); CARBON DIOXIDE 23 MMOL/L (21-32); CHLORIDE 105 MMOL/L (98-107); CREATININE 1.9 MG/DL (0.55-1.30); GLOMERULAR FILTRATION RATE 35.9 mL/min (>60); MAGNESIUM 1.9 MG/DL (1.8-2.4); PHOSPHORUS 1.9 MG/DL (2.5-4.9); POTASSIUM 4.5 MMOL/L (3.5-5.1); SODIUM 138 MMOL/L (136-145); TOTAL PROTEIN 6.5 G/DL (6.4-8.2); URIC ACID 9.9 MG/DL (2.6-7.2)
--- NOTE | 2017-04-13 08:24 | Diagnostic Imaging Report ---
Indication: RENAL-A abnormal renal function tests acute renal failure Technique: Grayscale and duplex images of the kidneys, retroperitoneum, and bladder were obtained. Comparison:None Findings: Right kidney measures 10.1 cm in length. Left kidney measures 12 cm in length. Both kidneys demonstrate normal echogenicity. No hydronephrosis. The left kidney demonstrates an 11 mm interpolar region cyst. Normal inferior vena cava. Bladder is distended, calculated volume 735 mL. Per technologist, patient unable to void at the time the exam. Impression: Distended bladder, 735 mL, with patient unable to void. Per technologist, patient has history of urethral stricture. Negative for hydronephrosis Incidental finding small left renal cyst
--- NOTE | 2017-04-13 08:34 | Nephrology Progress Note ---
Assessment/Plan Problem List: (1) Acute on chronic renal failure (2) Urinary retention Assessment had urinary retention- now has abad- Cr last 1.9 Renal failure ? Chronic Anemia, Etiology? High TSh, Hypothyroid ACS DM , high A1c HyperUrecemia Obese Plan Plan: DC IV abad keep BP above 100 syst Kidney MABEL- Right kidney measures 10.1 cm in length. Left kidney measures 12 cm in length. Both kidneys demonstrate normal echogenicity. No hydronephrosis. per cardiology up Flomax dose Per orders Objective Objective Last 24 Hour Vital Signs Date Time Temp Pulse Resp B/P (MAP) Pulse Ox O2 Delivery O2 Flow Rate FiO2 04/13/17 07:00 91 Nasal Cannula 2.0 28 04/13/17 07:00 Nasal Cannula 3.0 32 04/13/17 04:00 98.1 74 19 120/69 97 Nasal Cannula 2.0 04/13/17 03:42 77 04/13/17 00:45 98.3 77 18 113/60 96 Nasal Cannula 2.0 04/13/17 00:00 75 04/12/17 20:22 97.9 76 20 125/65 97 Nasal Cannula 2.0 04/12/17 20:20 96 Nasal Cannula 2.0 28 04/12/17 20:20 Nasal Cannula 2.0 28 04/12/17 20:00 73 04/12/17 16:00 72 04/12/17 15:45 98.1 71 20 117/75 94 Nasal Cannula 2.0 04/12/17 12:00 90 04/12/17 11:32 97.7 93 20 130/64 93 Nasal Cannula 2.0 04/12/17 09:24 105 115/60 04/12/17 09:24 115/60 Laboratory Tests 04/13/17 06:00: Sodium Level 138, Potassium Level 4.5, Chloride Level 105, Carbon Dioxide Level 23, Anion Gap 10, Blood Urea Nitrogen 30H, Creatinine 1.9H, Estimat Glomerular Filtration Rate 35.9, Glucose Level 173H, Uric Acid 9.9H, Calcium Level 8.7, Phosphorus Level 1.9L, Magnesium Level 1.9, Total Bilirubin 0.7, Aspartate Amino Transf (AST/SGOT) 26, Alanine Aminotransferase (ALT/SGPT) 20, Alkaline Phosphatase 57, C-Reactive Protein, Quantitative 24.0H, Pro-B-Type Natriuretic Peptide 1132H, Total Protein 6.5, Albumin 2.7L, Globulin 3.8, Albumin/Globulin Ratio 0.7L Height (Feet): 6 Height (Inches): 2.00 Weight (Pounds): 230 Objective PE not changed RANGEL PERES Apr 13, 2017 08:33
[2017-04-13] MEDS: Tamsulosin 0.4mg cap ORAL SCH ×2 (09:20→17:14)
[2017-04-13] MEDS: Imdur 30mg tab ORAL SCH (09:20)
[2017-04-13] MEDS: Metoprolol Succinate XL 25mg tab ORAL SCH (09:20)
[2017-04-13] MEDS: Azithromycin 250mg tab ORAL SCH (09:20)
[2017-04-13] MEDS: Depakote 500mg tab ORAL SCH ×2 (09:21→21:02)
[2017-04-13] MEDS: Heparin 5000 units/ml inj SUBQ SCH ×2 (09:22→21:06)
[2017-04-13] MEDS: Phospha 250 Neutral tab ORAL SCH ×3 (09:24→17:14)
[2017-04-13] MEDS: HYDROmorphone 1mg/ml Carpuject IVP PRN ×2 (11:27→15:32)
[2017-04-13 11:53] LABS: BASOPHILS % (AUTO) 0.5 % (0.0-2.0); EOSINOPHILS % (AUTO) 0.4 % (0.0-3.0); LYMPHOCYTES % (AUTO) 8.6 % (20.0-45.0); MEAN CORPUSCULAR HEMOGLOBIN 30.8 PG (27.0-31.0); MEAN CORPUSCULAR HGB CONC 32.1 G/DL (32.0-36.0); MEAN CORPUSCULAR VOLUME 96 FL (80-99); MEAN PLATELET VOLUME 5.5 FL (6.5-10.1); MONOCYTES % (AUTO) 9.1 % (1.0-10.0); NEUTROPHILS % (AUTO) 81.4 % (45.0-75.0); PLATELET COUNT 114 K/UL (150-450); RED BLOOD COUNT 2.69 M/UL (4.70-6.10); RED CELL DISTRIBUTION WIDTH 13.4 % (11.6-14.8); WHITE BLOOD COUNT 8.2 K/UL (4.8-10.8)
--- NOTE | 2017-04-13 13:04 | Cardiac Electrophysiology PN ---
Assessment/Plan Assessment/Plan 1. Chest pain. Ruled out for myocardial infarction. Continue aspirin, Plavix, Toprol 25 mg carol, Lipitor and Imdur 30 mg daily. Echocardiogram showed Nl EF 71%. Nuclear stress test showed no ischemia 2. Hypertension. Continue Imdur 30 mg and Toprol-XL 25 mg daily. 3. Renal failure. Creatinine was around 2, Keep off VILMA inhibitor and angiotensin receptor blockers. 4. History of seizures. 5. History of skin cancer. OK to DC from cardiac perspective DARVIN RN Subjective Subjective Got Dilaudid for generalized angelica ache. No chest pain. Complaining of tremor. .Echo EF 60%. Objective Last 24 Hour Vital Signs Date Time Temp Pulse Resp B/P (MAP) Pulse Ox O2 Delivery O2 Flow Rate FiO2 04/13/17 12:00 93 04/13/17 09:20 114 154/72 04/13/17 09:20 154/72 04/13/17 08:00 99.0 114 19 154/72 94 Room Air 04/13/17 08:00 114 04/13/17 07:00 91 Nasal Cannula 2.0 28 04/13/17 07:00 Nasal Cannula 3.0 32 04/13/17 04:00 98.1 74 19 120/69 97 Nasal Cannula 2.0 04/13/17 03:42 77 04/13/17 00:45 98.3 77 18 113/60 96 Nasal Cannula 2.0 04/13/17 00:00 75 04/12/17 20:22 97.9 76 20 125/65 97 Nasal Cannula 2.0 04/12/17 20:20 96 Nasal Cannula 2.0 28 04/12/17 20:20 Nasal Cannula 2.0 28 04/12/17 20:00 73 04/12/17 16:00 72 04/12/17 15:45 98.1 71 20 117/75 94 Nasal Cannula 2.0 Laboratory Tests Test 04/13/17 06:00 04/13/17 11:30 Sodium Level 138 MMOL/L (136-145) Potassium Level 4.5 MMOL/L (3.5-5.1) Chloride Level 105 MMOL/L (98-107) Carbon Dioxide Level 23 MMOL/L (21-32) Anion Gap 10 mmol/L (5-15) Blood Urea Nitrogen 30 mg/dL (7-18) H Creatinine 1.9 MG/DL (0.55-1.30) H Estimat Glomerular Filtration Rate 35.9 mL/min (>60) Glucose Level 173 MG/DL (74-106) H Uric Acid 9.9 MG/DL (2.6-7.2) H Calcium Level 8.7 MG/DL (8.5-10.1) Phosphorus Level 1.9 MG/DL (2.5-4.9) L Magnesium Level 1.9 MG/DL (1.8-2.4) Total Bilirubin 0.7 MG/DL (0.2-1.0) Aspartate Amino Transf (AST/SGOT) 26 U/L (15-37) Alanine Aminotransferase (ALT/SGPT) 20 U/L (12-78) Alkaline Phosphatase 57 U/L (46-116) C-Reactive Protein, Quantitative 24.0 mg/dL (0.00-0.90) H Pro-B-Type Natriuretic Peptide 1132 pg/mL (0-125) H Total Protein 6.5 G/DL (6.4-8.2) Albumin 2.7 G/DL (3.4-5.0) L Globulin 3.8 g/dL Albumin/Globulin Ratio 0.7 (1.0-2.7) L White Blood Count 8.2 K/UL (4.8-10.8) Red Blood Count 2.69 M/UL (4.70-6.10) L Hemoglobin 8.3 G/DL (14.2-18.0) L Hematocrit 25.8 % (42.0-52.0) L Mean Corpuscular Volume 96 FL (80-99) Mean Corpuscular Hemoglobin 30.8 PG (27.0-31.0) Mean Corpuscular Hemoglobin Concent 32.1 G/DL (32.0-36.0) Red Cell Distribution Width 13.4 % (11.6-14.8) Platelet Count 114 K/UL (150-450) L Mean Platelet Volume 5.5 FL (6.5-10.1) L Neutrophils (%) (Auto) 81.4 % (45.0-75.0) H Lymphocytes (%) (Auto) 8.6 % (20.0-45.0) L Monocytes (%) (Auto) 9.1 % (1.0-10.0) Eosinophils (%) (Auto) 0.4 % (0.0-3.0) Basophils (%) (Auto) 0.5 % (0.0-2.0) Microbiology Date/Time Source Procedure Growth Status 04/12/17 16:40 Nasal Nares Influenza Types A,B Antigen (IAIN) - Final Complete Objective HEAD AND NECK: No JVD. LUNGS: Clear. CARDIOVASCULAR: Regular S1 and S2 with no gallop or murmur. ABDOMEN: Soft. EXTREMITIES: No pitting edema. SADE MARC Apr 13, 2017 13:04
[2017-04-13] MEDS: cefTRIAXone 1 GM in D5W 55 ML IVPB SCH (13:24)
--- NOTE | 2017-04-13 15:42 | General Progress Note ---
Assessment/Plan Problem List: (1) GRZEGORZ on CKD (2) Chest pain ICD Codes: R07.9 - Chest pain, unspecified SNOMED: 93403902 (3) Hyperglycemia ICD Codes: R73.9 - Hyperglycemia, unspecified SNOMED: 80517209 (4) H/o NM in 2014 per patient (5) CAD s/p 8 stents per patient (6) HTN (hypertension) ICD Codes: I10 - Essential (primary) hypertension SNOMED: 23652062 (7) HLD (hyperlipidemia) ICD Codes: E78.5 - Hyperlipidemia, unspecified SNOMED: 49589241 (8) GERD (gastroesophageal reflux disease) ICD Codes: K21.9 - Gastro-esophageal reflux disease without esophagitis SNOMED: 462923787 (9) BPH (benign prostatic hyperplasia) ICD Codes: N40.0 - Benign prostatic hyperplasia without lower urinary tract symptoms SNOMED: 060556178 (10) DM2 (diabetes mellitus, type 2) ICD Codes: E11.9 - Type 2 diabetes mellitus without complications SNOMED: 69062853 (11) Tremor Assessment & Plan: likely essential tremor per neuro ICD Codes: R25.1 - Tremor, unspecified SNOMED: 08113102 (12) Urinary retention ICD Codes: R33.9 - Retention of urine, unspecified SNOMED: 968911738 (13) Hyponatremia ICD Codes: E87.1 - Hypo-osmolality and hyponatremia SNOMED: 01589811 (14) Hypomagnesemia ICD Codes: E83.42 - Hypomagnesemia SNOMED: 015643711 (15) Right pulmonary infiltrate on CXR Assessment & Plan: CAP vs HAP ICD Codes: R91.8 - Other nonspecific abnormal finding of lung field SNOMED: 530054184, 328922043 Status: stable Assessment/Plan D/c tele Serial trop neg x 3 F/u TTE--EF 60% Appreciate cardiology consult F/u nuclear stress test--neg Appreciate renal consult Trend BMP and lytes F/u renal U/S--unremarkable D/c IVFs D/c abad today and attempt voiding trial Flomax increased to 0.4mg BID Trend CBC Check Fe panel, ferritin Cont home meds including ASA, plavix, statin SSI Neuro consulted given tremor D/w cardiology switching from MTP to propranolol given essential tremor but cardiology does not recommend it given pt w/ cardiac history and MTP is preferred ID consulted given fevers Pulm consulted given R lung infiltrate on CXR Empiric ceftriaxone and azithro (04/12-) per ID--> switch to levaquin 750mg daily on d/c Pain control, supportive care, bowel regimen HSQ for DVT ppx Possible d/c tomorrow back to [facility] FULL CODE D/w pt, RN, cardiology, renal, ID SW/CM regarding mgmt and dispo Subjective Date patient seen: Apr 13, 2017 Time patient seen: 15:42 ROS Limited/Unobtainable: No Constitutional: Reports: malaise, weakness HEENT: Reports: no symptoms Cardiovascular: Reports: chest pain Respiratory: Reports: no symptoms Gastrointestinal/Abdominal: Reports: no symptoms Genitourinary: Reports: no symptoms Neurologic/Psychiatric: Reports: no symptoms Endocrine: Reports: no symptoms Hematologic/Lymphatic: Reports: no symptoms Allergies: Coded Allergies: ACETAMINOPHEN (Unverified Allergy, Unknown, 05/18/14) unknown reaction CHLORPROMAZINE (Unverified Allergy, Unknown, 05/18/14) HYDROCODONE (Unverified Allergy, Unknown, 05/18/14) unknown reaction IBUPROFEN (Unverified Allergy, Unknown, 05/18/14) IMIPRAMINE (Unverified Allergy, Unknown, shaking, 05/18/14) METHSUXIMIDE (Unverified Allergy, Unknown, 05/18/14) METHYLPHENIDATE (Unverified Allergy, Unknown, 05/18/14) Subjective No acute o/n events Afebrile o/n Started on ceftraxine + azithro yesterday for PNA per ID SCr down to 1.9 Hgb downtrending to 8.3, no e/o blood loss Pt states chest pain improving. Complains more of back and leg pain from spine issue and fibular fx. States PCP has referred him to ortho but he is awaiting insurance authorization to be seen. Denies f/c, n/v, d/c, abd pain. Tremor stable Objective Last 24 Hour Vital Signs Date Time Temp Pulse Resp B/P (MAP) Pulse Ox O2 Delivery O2 Flow Rate FiO2 04/13/17 12:00 93 04/13/17 09:20 114 154/72 04/13/17 09:20 154/72 04/13/17 08:00 99.0 114 19 154/72 94 Room Air 04/13/17 08:00 114 04/13/17 07:00 91 Nasal Cannula 2.0 28 04/13/17 07:00 Nasal Cannula 3.0 32 04/13/17 04:00 98.1 74 19 120/69 97 Nasal Cannula 2.0 04/13/17 03:42 77 04/13/17 00:45 98.3 77 18 113/60 96 Nasal Cannula 2.0 04/13/17 00:00 75 04/12/17 20:22 97.9 76 20 125/65 97 Nasal Cannula 2.0 04/12/17 20:20 96 Nasal Cannula 2.0 28 04/12/17 20:20 Nasal Cannula 2.0 28 04/12/17 20:00 73 04/12/17 16:00 72 04/12/17 15:45 98.1 71 20 117/75 94 Nasal Cannula 2.0 Laboratory Tests 04/13/17 06:00: Sodium Level 138, Potassium Level 4.5, Chloride Level 105, Carbon Dioxide Level 23, Anion Gap 10, Blood Urea Nitrogen 30H, Creatinine 1.9H, Estimat Glomerular Filtration Rate 35.9, Glucose Level 173H, Uric Acid 9.9H, Calcium Level 8.7, Phosphorus Level 1.9L, Magnesium Level 1.9, Total Bilirubin 0.7, Aspartate Amino Transf (AST/SGOT) 26, Alanine Aminotransferase (ALT/SGPT) 20, Alkaline Phosphatase 57, C-Reactive Protein, Quantitative 24.0H, Pro-B-Type Natriuretic Peptide 1132H, Total Protein 6.5, Albumin 2.7L, Globulin 3.8, Albumin/Globulin Ratio 0.7L 04/13/17 11:30: White Blood Count 8.2, Red Blood Count 2.69L, Hemoglobin 8.3L, Hematocrit 25.8L , Mean Corpuscular Volume 96, Mean Corpuscular Hemoglobin 30.8, Mean Corpuscular Hemoglobin Concent 32.1, Red Cell Distribution Width 13.4, Platelet Count 114L, Mean Platelet Volume 5.5L, Neutrophils (%) (Auto) 81.4H, Lymphocytes (%) (Auto) 8.6L, Monocytes (%) (Auto) 9.1, Eosinophils (%) (Auto) 0.4, Basophils (%) (Auto) 0.5 Height (Feet): 6 Height (Inches): 2.00 Weight (Pounds): 230 Objective General: alert, cooperative, no distress, appears stated age Head: normocephalic, without obvious abnormality, atraumatic Eyes: conjunctivae/corneas clear. PERRL, EOM's intact Throat: lips, mucosa, and tongue normal. MMM Neck: supple, symmetrical, trachea midline, and no JVD Lungs: clear to auscultation bilaterally Heart: regular rate and rhythm, S1, S2 normal, no murmur, click, rub or gallop Abdomen: soft, non-tender, non-distended, bowel sounds normal; no masses or organomegaly Extremities: extremities normal, atraumatic, no cyanosis or edema Pulses: 2+ and symmetric Skin: skin color, texture, turgor normal; no rashes or lesions Neurologic: grossly normal, no focal deficits Catie Dillon M.D. Apr 13, 2017 15:42
[2017-04-13] MEDS ORDERED: LEVAQUIN750 MG ORAL (16:06)
[2017-04-13] MEDS ORDERED: FLOMAX0.4 MG ORAL (16:07)
[2017-04-13 16:10] LABS: IRON 12 ug/dL (50-175); TOTAL IRON BINDING CAPACITY 190 ug/dL (250-450)
[2017-04-13 16:24] LABS: FERRITIN 137 NG/ML (8-388)
[2017-04-13] MEDS ORDERED: Flu Vaccine Quadrivalent 0.5ml IM ONE (17:30)
[2017-04-13] MEDS: Atorvastatin 80mg tab ORAL SCH ×2 (21:00→21:03)
--- NOTE | 2017-04-13 21:35 | Consultation ---
History of Present Illness General Chief Complaint: Chest Pain Present Illness HPI 66-year-old gentleman with history of hypertension, coronary artery disease, and history of prior myocardial infarction. he denied psychiatric hx however endorses depressed and irritable mood, anhedonia, worthlessness, poor energy. insomnia. the pt is also demanding and entitled Allergies: Coded Allergies: ACETAMINOPHEN (Unverified Allergy, Unknown, 05/18/14) unknown reaction CHLORPROMAZINE (Unverified Allergy, Unknown, 05/18/14) HYDROCODONE (Unverified Allergy, Unknown, 05/18/14) unknown reaction IBUPROFEN (Unverified Allergy, Unknown, 05/18/14) IMIPRAMINE (Unverified Allergy, Unknown, shaking, 05/18/14) METHSUXIMIDE (Unverified Allergy, Unknown, 05/18/14) METHYLPHENIDATE (Unverified Allergy, Unknown, 05/18/14) Medication History Scheduled Aspirin* (Aspirin*), 325 MG ORAL DAILY, (Reported) Atorvastatin Calcium* (Lipitor*), 80 MG ORAL BEDTIME, (Reported) Clopidogrel Bisulfate* (Plavix*), 75 MG ORAL DAILY, (Reported) Divalproex Sodium* (Depakote*), 1,000 MG PO Q12HR, (Reported) Insulin Glargine (Lantus), 26 SUBQ BID, (Reported) Insulin Regular, Human* (Novolin R*), 0 SUBQ .SLIDING SCALE, (Reported) Isosorbide Mononitrate* (Imdur*), 30 MG ORAL DAILY, (Reported) Levofloxacin* (Levaquin*), 750 MG ORAL DAILY Metoprolol Succinate* (Toprol Xl*), 25 MG ORAL DAILY, (Reported) Nitroglycerin (Nitroglycerin), 0.4 MG SL PRN, (Reported) Pantoprazole* (Protonix*), 40 MG ORAL DAILY, (Reported) Tamsulosin HCl (Flomax), 0.4 MG ORAL DAILY, (Reported) Tamsulosin HCl (Flomax), 0.4 MG ORAL BID Patient History Limited by: medical condition History Provided By: Patient, Medical Record, PMD Healthcare decision maker Resuscitation status Advanced Directive on File No Past Medical/Surgical History Past Medical/Surgical History: (1) Diabetes (2) ACS (acute coronary syndrome) (3) Hyperglycemia (4) Renal insufficiency (5) GERD (gastroesophageal reflux disease) (6) HTN (hypertension) (7) HLD (hyperlipidemia) (8) BPH (benign prostatic hyperplasia) (9) H/o [place] in 2014 per patient (10) CAD s/p 8 stents per patient (11) lives in [place] (12) Chest pain (13) GRZEGORZ vs CKD (14) DM2 (diabetes mellitus, type 2) (15) Tremor (16) Acute on chronic renal failure (17) Urinary retention (18) GRZEGORZ on CKD (19) Urinary retention (20) Hypomagnesemia (21) Hyponatremia (22) Right pulmonary infiltrate on CXR Review of Systems Psychiatric: Reports: prior hx, anxiety, depressed feelings, emotional problems Physical Exam General Appearance: no apparent distress, alert, overweight Neurologic: alert, oriented x 3, responsive, depressed affect Last 24 Hour Vital Signs Date Time Temp Pulse Resp B/P (MAP) Pulse Ox O2 Delivery O2 Flow Rate FiO2 04/13/17 20:45 97.0 71 19 113/66 96 Nasal Cannula 04/13/17 16:00 97.5 71 19 110/70 97 Nasal Cannula 2.0 04/13/17 16:00 68 04/13/17 12:00 93 04/13/17 12:00 98.0 18 105/64 95 Nasal Cannula 2.0 04/13/17 09:20 114 154/72 04/13/17 09:20 154/72 04/13/17 08:00 99.0 114 19 154/72 94 Room Air 04/13/17 08:00 114 04/13/17 07:00 91 Nasal Cannula 2.0 28 04/13/17 07:00 Nasal Cannula 3.0 32 04/13/17 04:00 98.1 74 19 120/69 97 Nasal Cannula 2.0 04/13/17 03:42 77 04/13/17 00:45 98.3 77 18 113/60 96 Nasal Cannula 2.0 04/13/17 00:00 75 Intake and Output 04/13/17 04/14/17 19:00 07:00 Intake Total 555 ml Output Total 650 ml Balance -95 ml Intake Oral 500 ml IV Total 55 ml Output Urine Total 650 ml Laboratory Tests Test 04/13/17 06:00 04/13/17 11:30 Sodium Level 138 MMOL/L (136-145) Potassium Level 4.5 MMOL/L (3.5-5.1) Chloride Level 105 MMOL/L (98-107) Carbon Dioxide Level 23 MMOL/L (21-32) Anion Gap 10 mmol/L (5-15) Blood Urea Nitrogen 30 mg/dL (7-18) H Creatinine 1.9 MG/DL (0.55-1.30) H Estimat Glomerular Filtration Rate 35.9 mL/min (>60) Glucose Level 173 MG/DL (74-106) H Uric Acid 9.9 MG/DL (2.6-7.2) H Calcium Level 8.7 MG/DL (8.5-10.1) Phosphorus Level 1.9 MG/DL (2.5-4.9) L Magnesium Level 1.9 MG/DL (1.8-2.4) Total Bilirubin 0.7 MG/DL (0.2-1.0) Aspartate Amino Transf (AST/SGOT) 26 U/L (15-37) Alanine Aminotransferase (ALT/SGPT) 20 U/L (12-78) Alkaline Phosphatase 57 U/L (46-116) C-Reactive Protein, Quantitative 24.0 mg/dL (0.00-0.90) H Pro-B-Type Natriuretic Peptide 1132 pg/mL (0-125) H Total Protein 6.5 G/DL (6.4-8.2) Albumin 2.7 G/DL (3.4-5.0) L Globulin 3.8 g/dL Albumin/Globulin Ratio 0.7 (1.0-2.7) L White Blood Count 8.2 K/UL (4.8-10.8) Red Blood Count 2.69 M/UL (4.70-6.10) L Hemoglobin 8.3 G/DL (14.2-18.0) L Hematocrit 25.8 % (42.0-52.0) L Mean Corpuscular Volume 96 FL (80-99) Mean Corpuscular Hemoglobin 30.8 PG (27.0-31.0) Mean Corpuscular Hemoglobin Concent 32.1 G/DL (32.0-36.0) Red Cell Distribution Width 13.4 % (11.6-14.8) Platelet Count 114 K/UL (150-450) L Mean Platelet Volume 5.5 FL (6.5-10.1) L Neutrophils (%) (Auto) 81.4 % (45.0-75.0) H Lymphocytes (%) (Auto) 8.6 % (20.0-45.0) L Monocytes (%) (Auto) 9.1 % (1.0-10.0) Eosinophils (%) (Auto) 0.4 % (0.0-3.0) Basophils (%) (Auto) 0.5 % (0.0-2.0) Iron Level 12 ug/dL (50-175) L Total Iron Binding Capacity 190 ug/dL (250-450) L Percent Iron Saturation 6 % (15-50) L Unsaturated Iron Binding 178 ug/dL (112-346) Ferritin 137 NG/ML (8-388) Height (Feet): 6 Height (Inches): 2.00 Weight (Pounds): 230 Medications Current Medications Medications (Trade) Dose Ordered Sig/Breanna Route PRN Reason Start Time Stop Time Status Last Admin Dose Admin Allopurinol (Allopurinol) 300 mg DAILY ORAL 04/13/17 09:00 05/13/17 08:59 04/13/17 09:20 Aspirin (ASA) 325 mg DAILY ORAL 04/09/17 09:00 05/09/17 08:59 04/13/17 09:20 Atorvastatin Calcium (Lipitor) 80 mg BEDTIME ORAL 04/08/17 21:00 05/08/17 20:59 04/12/17 21:20 Azithromycin (Zithromax) 500 mg DAILY ORAL 04/12/17 14:00 04/19/17 13:59 04/13/17 09:20 Ceftriaxone Sodium 1 gm/ Dextrose 55 ml @ 110 mls/hr Q24H IVPB 04/12/17 14:00 04/19/17 13:59 04/13/17 13:24 Cetylpyridinium Chloride (Cepacol) 1 lozenge EVERY 2 HOURS PRN AIDE To Patient Comfort 04/11/17 22:30 05/11/17 22:29 04/11/17 23:27 Clopidogrel Bisulfate (Plavix) 75 mg DAILY ORAL 04/09/17 09:00 05/09/17 08:59 04/13/17 09:20 Dextrose (Dextrose 50%) STAT PRN IV Hypoglycemia 04/08/17 16:15 05/08/17 16:14 Diphenhydramine HCl (Benadryl) 25 mg Q6H PRN ORAL Itching/Pruritis 04/08/17 16:15 05/08/17 16:14 04/11/17 21:36 Divalproex Sodium (Depakote) 1,000 mg Q12HR ORAL 04/08/17 21:00 05/08/17 20:59 04/13/17 21:02 Heparin Sodium (Porcine) (Heparin 5000 units/ml) 5,000 units EVERY 12 HOURS SUBQ 04/12/17 10:00 05/12/17 09:59 04/13/17 21:06 Hydromorphone HCl (Dilaudid) 1 mg Q4H PRN IVP Severe Breakthru Pain (>7) 04/08/17 21:30 04/15/17 21:29 04/13/17 15:32 Hydromorphone HCl (Dilaudid) 2 mg Q4H PRN ORAL Moderate Pain (Pain Scale 4-6) 04/08/17 22:00 04/15/17 21:59 04/09/17 21:56 Influenza Virus Vaccine Quadrival (Flu Vaccine Quadrivalent) 0.5 ml ONCE ONCE IM 04/14/17 09:00 04/14/17 09:01 Insulin Aspart (NovoLOG) BEFORE MEALS AND HS SUBQ 04/08/17 17:30 05/08/17 17:29 04/13/17 21:04 Isosorbide Mononitrate (Imdur) 30 mg DAILY ORAL 04/09/17 09:00 05/09/17 08:59 04/13/17 09:20 Meclizine HCl (Antivert) 25 mg Q6H PRN ORAL for dizziness 04/08/17 23:00 05/08/17 22:59 04/11/17 09:16 Metoprolol Succinate (Toprol XL) 25 mg DAILY ORAL 04/09/17 09:00 05/09/17 08:59 04/13/17 09:20 Nitroglycerin (Ntg) 0.4 mg Q5M PRN SL CHEST PAIN 04/08/17 16:15 05/08/17 16:14 Ondansetron HCl (Zofran) 4 mg Q6H PRN IVP Nausea & Vomiting 04/08/17 16:15 05/08/17 16:14 04/13/17 17:14 Pantoprazole (Protonix) 40 mg DAILY ORAL 04/09/17 09:00 05/09/17 08:59 04/13/17 09:20 Phosphorus (Phospha 250 Neutral) 250 mg THREE TIMES A DAY ORAL 04/13/17 09:00 05/13/17 08:59 04/13/17 17:14 Tamsulosin HCl (Flomax) 0.4 mg BID ORAL 04/12/17 09:00 05/09/17 08:59 04/13/17 17:14 Assessment/Plan Status: stable Assessment/Plan mood d/o. r/o bipolar depakote 1000mg qhs klonopin .5.g Amy Thompson M.D. Apr 13, 2017 21:35
--- NOTE | 2017-04-13 22:39 | Infectious Diseases Prog Note ---
Assessment/Plan Assessment/Plan ASSESSMENT AND PLAN: 1. cap, congestion, sob, cp, fevers - continue rocephin and azithromycin - fevers better - check chest x-ray, sc if possible, serology - check labs - can discharge on po levofloxacin x 5 days if continues to improve and chest x-rays stable - d/w Dr. Haddad 2. possible sepsis, abx, w/u in progress 3. Tachycardia. 4. Elevated creatinine. 5. Acute kidney injury. 6. Coronary artery disease and myocardial infarction. 7. Acute coronary syndrome and chest pain. 8. History of cardiac stents. 9. Diabetes. 10. Hypertension. 11. Hyperlipidemia. 12. Gastroesophageal reflux disease. 13. Benign prostatic hypertrophy. 14. Past medical history as noted. 15. The patient lives in an assisted living facility. Social history is otherwise negative. 16. MAR was noted. 17. Case was discussed with RN. 18. Family history is noncontributory. 19. Continue treatment per primary consultants. 20. Skin care protocol. 21. Notes and records were noted. 22. The patient is being evaluated for tremor by Neurology. 23. History of anemia. 24. Case was discussed with Dr. Haddad. Subjective Constitutional: Denies: fever HEENT: Reports: congestion - less, Denies: dysphagia Respiratory: Reports: shortness of breath - less Cardiovascular: Denies: chest pain Gastrointestinal/Abdominal: Denies: nausea, vomiting, diarrhea Genitourinary: Denies: dysuria Neurologic: Denies: headache Skin: Denies: rash Hematologic: Denies: bleeding Musculoskeletal: Denies: pain Allergies: Coded Allergies: ACETAMINOPHEN (Unverified Allergy, Unknown, 05/18/14) unknown reaction CHLORPROMAZINE (Unverified Allergy, Unknown, 05/18/14) HYDROCODONE (Unverified Allergy, Unknown, 05/18/14) unknown reaction IBUPROFEN (Unverified Allergy, Unknown, 05/18/14) IMIPRAMINE (Unverified Allergy, Unknown, shaking, 05/18/14) METHSUXIMIDE (Unverified Allergy, Unknown, 05/18/14) METHYLPHENIDATE (Unverified Allergy, Unknown, 05/18/14) Objective Vital Signs Last 24 Hour Vital Signs Date Time Temp Pulse Resp B/P (MAP) Pulse Ox O2 Delivery O2 Flow Rate FiO2 04/13/17 20:45 97.0 71 19 113/66 96 Nasal Cannula 04/13/17 16:00 97.5 71 19 110/70 97 Nasal Cannula 2.0 04/13/17 16:00 68 04/13/17 12:00 93 04/13/17 12:00 98.0 18 105/64 95 Nasal Cannula 2.0 04/13/17 09:20 114 154/72 04/13/17 09:20 154/72 04/13/17 08:00 99.0 114 19 154/72 94 Room Air 04/13/17 08:00 114 04/13/17 07:00 91 Nasal Cannula 2.0 28 04/13/17 07:00 Nasal Cannula 3.0 32 04/13/17 04:00 98.1 74 19 120/69 97 Nasal Cannula 2.0 04/13/17 03:42 77 04/13/17 00:45 98.3 77 18 113/60 96 Nasal Cannula 2.0 04/13/17 00:00 75 Height (Feet): 6 Height (Inches): 2.00 Weight (Pounds): 230 General Appearance: no acute distress HEENT: normocephalic, atraumatic, anicteric, mucous membranes moist Respiratory/Chest: no respiratory distress, no accessory muscle use, crackles/ rales, rhonchi - bilaterally Cardiovascular: normal rate, regular rhythm, no gallop/murmur Abdomen: normal bowel sounds, soft, non tender, no organomegaly, non distended Genitourinary: other - no abad Extremities: no cyanosis Skin: no rash Neurologic/Psychiatric: vice chair II-XII grossly normal, alert, oriented x 3, responsive Lymphatic: no neck adenopathy Musculoskeletal: no effusion Objective 04/12 - chest x-ray Impression: Developing infiltrate and/or atelectasis in the medial right lung base. New atelectasis in the left mid to lower lung. Microbiology Date/Time Source Procedure Growth Status 04/12/17 16:40 Nasal Nares Influenza Types A,B Antigen (IAIN) - Final Complete 04/08/17 11:50 Rectum VRE Culture - Final NO VANCOMYCIN RESISTANT ENTEROCOCCUS ... Complete Microbiology Date/Time Source Procedure Growth Status 04/12/17 16:40 Nasal Nares Influenza Types A,B Antigen (IAIN) - Final Complete Laboratory Tests Test 04/13/17 06:00 04/13/17 11:30 Sodium Level 138 MMOL/L (136-145) Potassium Level 4.5 MMOL/L (3.5-5.1) Chloride Level 105 MMOL/L (98-107) Carbon Dioxide Level 23 MMOL/L (21-32) Anion Gap 10 mmol/L (5-15) Blood Urea Nitrogen 30 mg/dL (7-18) H Creatinine 1.9 MG/DL (0.55-1.30) H Estimat Glomerular Filtration Rate 35.9 mL/min (>60) Glucose Level 173 MG/DL (74-106) H Uric Acid 9.9 MG/DL (2.6-7.2) H Calcium Level 8.7 MG/DL (8.5-10.1) Phosphorus Level 1.9 MG/DL (2.5-4.9) L Magnesium Level 1.9 MG/DL (1.8-2.4) Total Bilirubin 0.7 MG/DL (0.2-1.0) Aspartate Amino Transf (AST/SGOT) 26 U/L (15-37) Alanine Aminotransferase (ALT/SGPT) 20 U/L (12-78) Alkaline Phosphatase 57 U/L (46-116) C-Reactive Protein, Quantitative 24.0 mg/dL (0.00-0.90) H Pro-B-Type Natriuretic Peptide 1132 pg/mL (0-125) H Total Protein 6.5 G/DL (6.4-8.2) Albumin 2.7 G/DL (3.4-5.0) L Globulin 3.8 g/dL Albumin/Globulin Ratio 0.7 (1.0-2.7) L White Blood Count 8.2 K/UL (4.8-10.8) Red Blood Count 2.69 M/UL (4.70-6.10) L Hemoglobin 8.3 G/DL (14.2-18.0) L Hematocrit 25.8 % (42.0-52.0) L Mean Corpuscular Volume 96 FL (80-99) Mean Corpuscular Hemoglobin 30.8 PG (27.0-31.0) Mean Corpuscular Hemoglobin Concent 32.1 G/DL (32.0-36.0) Red Cell Distribution Width 13.4 % (11.6-14.8) Platelet Count 114 K/UL (150-450) L Mean Platelet Volume 5.5 FL (6.5-10.1) L Neutrophils (%) (Auto) 81.4 % (45.0-75.0) H Lymphocytes (%) (Auto) 8.6 % (20.0-45.0) L Monocytes (%) (Auto) 9.1 % (1.0-10.0) Eosinophils (%) (Auto) 0.4 % (0.0-3.0) Basophils (%) (Auto) 0.5 % (0.0-2.0) Iron Level 12 ug/dL (50-175) L Total Iron Binding Capacity 190 ug/dL (250-450) L Percent Iron Saturation 6 % (15-50) L Unsaturated Iron Binding 178 ug/dL (112-346) Ferritin 137 NG/ML (8-388) Current Medications Medications (Trade) Dose Ordered Sig/Breanna Route PRN Reason Start Time Stop Time Status Last Admin Dose Admin Allopurinol (Allopurinol) 300 mg DAILY ORAL 04/13/17 09:00 05/13/17 08:59 04/13/17 09:20 Aspirin (ASA) 325 mg DAILY ORAL 04/09/17 09:00 05/09/17 08:59 04/13/17 09:20 Atorvastatin Calcium (Lipitor) 80 mg BEDTIME ORAL 04/08/17 21:00 05/08/17 20:59 04/12/17 21:20 Azithromycin (Zithromax) 500 mg DAILY ORAL 04/12/17 14:00 04/19/17 13:59 04/13/17 09:20 Ceftriaxone Sodium 1 gm/ Dextrose 55 ml @ 110 mls/hr Q24H IVPB 04/12/17 14:00 04/19/17 13:59 04/13/17 13:24 Cetylpyridinium Chloride (Cepacol) 1 lozenge EVERY 2 HOURS PRN AIDE To Patient Comfort 04/11/17 22:30 05/11/17 22:29 04/11/17 23:27 Clonazepam (KlonoPIN) 0.5 mg DAILY ORAL 04/14/17 09:00 04/21/17 08:59 UNV Clopidogrel Bisulfate (Plavix) 75 mg DAILY ORAL 04/09/17 09:00 05/09/17 08:59 04/13/17 09:20 Dextrose (Dextrose 50%) STAT PRN IV Hypoglycemia 04/08/17 16:15 05/08/17 16:14 Diphenhydramine HCl (Benadryl) 25 mg Q6H PRN ORAL Itching/Pruritis 04/08/17 16:15 05/08/17 16:14 04/11/17 21:36 Divalproex Sodium (Depakote) 1,000 mg Q12HR ORAL 04/08/17 21:00 05/08/17 20:59 04/13/17 21:02 Heparin Sodium (Porcine) (Heparin 5000 units/ml) 5,000 units EVERY 12 HOURS SUBQ 04/12/17 10:00 05/12/17 09:59 04/13/17 21:06 Hydromorphone HCl (Dilaudid) 1 mg Q4H PRN IVP Severe Breakthru Pain (>7) 04/08/17 21:30 04/15/17 21:29 04/13/17 15:32 Hydromorphone HCl (Dilaudid) 2 mg Q4H PRN ORAL Moderate Pain (Pain Scale 4-6) 04/08/17 22:00 04/15/17 21:59 04/09/17 21:56 Influenza Virus Vaccine Quadrival (Flu Vaccine Quadrivalent) 0.5 ml ONCE ONCE IM 04/14/17 09:00 04/14/17 09:01 Insulin Aspart (NovoLOG) BEFORE MEALS AND HS SUBQ 04/08/17 17:30 05/08/17 17:29 04/13/17 21:04 Isosorbide Mononitrate (Imdur) 30 mg DAILY ORAL 04/09/17 09:00 05/09/17 08:59 04/13/17 09:20 Meclizine HCl (Antivert) 25 mg Q6H PRN ORAL for dizziness 04/08/17 23:00 05/08/17 22:59 04/11/17 09:16 Metoprolol Succinate (Toprol XL) 25 mg DAILY ORAL 04/09/17 09:00 05/09/17 08:59 04/13/17 09:20 Nitroglycerin (Ntg) 0.4 mg Q5M PRN SL CHEST PAIN 04/08/17 16:15 05/08/17 16:14 Ondansetron HCl (Zofran) 4 mg Q6H PRN IVP Nausea & Vomiting 04/08/17 16:15 05/08/17 16:14 04/13/17 17:14 Pantoprazole (Protonix) 40 mg DAILY ORAL 04/09/17 09:00 05/09/17 08:59 04/13/17 09:20 Phosphorus (Phospha 250 Neutral) 250 mg THREE TIMES A DAY ORAL 04/13/17 09:00 05/13/17 08:59 04/13/17 17:14 Tamsulosin HCl (Flomax) 0.4 mg BID ORAL 04/12/17 09:00 05/09/17 08:59 04/13/17 17:14 ADAIR KEY Apr 13, 2017 22:39
[2017-04-14 04:25] VITALS: BP 128/63
[2017-04-14] MEDS: NovoLOG Insulin Flexpen SUBQ SCH ×4 (06:12→21:45)
[2017-04-14 06:39] LABS: BASOPHILS % (AUTO) 0.3 % (0.0-2.0); EOSINOPHILS % (AUTO) 0.2 % (0.0-3.0); LYMPHOCYTES % (AUTO) 8.8 % (20.0-45.0); MEAN CORPUSCULAR HEMOGLOBIN 32.3 PG (27.0-31.0); MEAN CORPUSCULAR HGB CONC 33.2 G/DL (32.0-36.0); MEAN CORPUSCULAR VOLUME 97 FL (80-99); MEAN PLATELET VOLUME 6.1 FL (6.5-10.1); MONOCYTES % (AUTO) 10.5 % (1.0-10.0); NEUTROPHILS % (AUTO) 80.2 % (45.0-75.0); PLATELET COUNT 109 K/UL (150-450); RED BLOOD COUNT 2.54 M/UL (4.70-6.10); RED CELL DISTRIBUTION WIDTH 13.4 % (11.6-14.8)
[2017-04-14 07:15] LABS: ANION GAP 8 mmol/L (5-15); CALCIUM 8.3 MG/DL (8.5-10.1); CARBON DIOXIDE 26 MMOL/L (21-32); CHLORIDE 99 MMOL/L (98-107); CREATININE 2.1 MG/DL (0.55-1.30); PHOSPHORUS 2.8 MG/DL (2.5-4.9); POTASSIUM 4.4 MMOL/L (3.5-5.1); SODIUM 133 MMOL/L (136-145)
[2017-04-14] MEDS: HYDROmorphone 2mg tab ORAL PRN ×2 (08:35→10:14)
[2017-04-14] MEDS: HYDROmorphone 1mg/ml Carpuject IVP PRN (08:44)
[2017-04-14] MEDS: Heparin 5000 units/ml inj SUBQ SCH ×2 (09:00→21:45)
[2017-04-14] MEDS ORDERED: Flu Vaccine Quadrivalent 0.5ml IM ONE (09:00)
[2017-04-14] MEDS: Phospha 250 Neutral tab ORAL SCH ×3 (09:32→17:21)
[2017-04-14] MEDS: Azithromycin 250mg tab ORAL SCH (09:37)
[2017-04-14] MEDS: Imdur 30mg tab ORAL SCH (09:50)
[2017-04-14] MEDS: Depakote 500mg tab ORAL SCH ×2 (09:54→21:42)
[2017-04-14] MEDS: Tamsulosin 0.4mg cap ORAL SCH ×2 (09:58→17:21)
[2017-04-14] MEDS: clonazePAM 0.5mg tab ORAL SCH (09:59)
[2017-04-14] MEDS: Metoprolol Succinate XL 25mg tab ORAL SCH (10:02)
--- NOTE | 2017-04-14 11:25 | Diagnostic Imaging Report ---
Indication: COUGH Technique: One view of the chest Comparison: 04/14/2017 Findings: There are bilateral lacunae the right interstitial and alveolar infiltrates versus edema. There is also bilateral perihilar atelectasis. Parenchymal disease on the right is similar in extent to that seen on the previous study, and considerably increased on the left. There is also some retrocardiac consolidation. The pleural spaces are probably clear. Impression: Persistent right and increasing left lung infiltrates versus edema, over 2 days
[2017-04-14 12:00] VITALS: BP_SYST 113; BP_SYST 135; BP_DIAS 57; BP_DIAS 63
[2017-04-14] MEDS ORDERED: DOCUSATE SODIU100 M2 ORAL (13:23)
--- NOTE | 2017-04-14 13:24 | Nephrology Progress Note ---
Assessment/Plan Problem List: (1) Acute on chronic renal failure (2) Urinary retention Assessment had urinary retention- now has abad- Cr last 2.1 Renal failure ? Chronic Anemia, Etiology? High TSh, Hypothyroid ACS DM , high A1c HyperUrecemia Obese Plan Plan: DC IV DC abad voiding trial keep BP above 100 syst Kidney MABEL- Right kidney measures 10.1 cm in length. Left kidney measures 12 cm in length. Both kidneys demonstrate normal echogenicity. No hydronephrosis. per cardiology up Flomax dose Per orders Subjective ROS Limited/Unobtainable: No Constitutional: Reports: malaise Objective Objective Last 24 Hour Vital Signs Date Time Temp Pulse Resp B/P (MAP) Pulse Ox O2 Delivery O2 Flow Rate FiO2 04/14/17 12:00 97.0 82 22 113/57 90 Room Air 04/14/17 10:02 81 116/62 04/14/17 09:50 116/62 04/14/17 08:00 98.6 85 24 93 Nasal Cannula 2.0 04/14/17 04:25 98.0 99 20 128/63 96 Nasal Cannula 04/13/17 23:44 98.2 111 20 169/86 95 Nasal Cannula 04/13/17 20:45 97.0 71 19 113/66 96 Nasal Cannula 04/13/17 19:05 96 Nasal Cannula 2.0 28 04/13/17 19:05 Nasal Cannula 2.0 28 04/13/17 16:00 97.5 71 19 110/70 97 Nasal Cannula 2.0 04/13/17 16:00 68 Laboratory Tests 04/14/17 05:05: White Blood Count 8.0, Red Blood Count 2.54L, Hemoglobin 8.2L, Hematocrit 24.7L , Mean Corpuscular Volume 97, Mean Corpuscular Hemoglobin 32.3H, Mean Corpuscular Hemoglobin Concent 33.2, Red Cell Distribution Width 13.4, Platelet Count 109L, Mean Platelet Volume 6.1L, Neutrophils (%) (Auto) 80.2H, Lymphocytes (%) (Auto) 8.8L, Monocytes (%) (Auto) 10.5H, Eosinophils (%) (Auto) 0.2, Basophils (%) (Auto) 0.3, Sodium Level 133L, Potassium Level 4.4, Chloride Level 99, Carbon Dioxide Level 26, Anion Gap 8, Blood Urea Nitrogen 29H, Creatinine 2.1H, Estimat Glomerular Filtration Rate 32.0, Glucose Level 228H, Calcium Level 8.3L, Phosphorus Level 2.8, Magnesium Level 2.0 Height (Feet): 6 Height (Inches): 2.00 Weight (Pounds): 230 General Appearance: no apparent distress Respiratory/Chest: decreased breath sounds Abdomen: soft Objective PE not changed RANGEL PERES Apr 14, 2017 13:24
[2017-04-14] MEDS: Docusate 100mg cap ORAL SCH ×2 (13:56→17:21)
[2017-04-14] MEDS: cefTRIAXone 1 GM in D5W 55 ML IVPB SCH (14:00)
[2017-04-14 15:58] VITALS: BP 102/46
--- NOTE | 2017-04-14 16:46 | Infectious Diseases Prog Note ---
Assessment/Plan Assessment/Plan ASSESSMENT AND PLAN: 1. cap, congestion, sob, cp, fevers - change to oral levofloxacin, refuses iv abx - chest x-ray worse, ? fluid, clinically better with less fevers and chills - fevers better - check sc, if possible - check labs - can discharge on po levofloxacin x 5 days if continues to improve and chest x-rays stable - d/w Dr. Haddad - pulmonary evaluation, ? CT chest 2. possible sepsis, abx, w/u in progress 3. Tachycardia. 4. Elevated creatinine. 5. Acute kidney injury. 6. Coronary artery disease and myocardial infarction. 7. Acute coronary syndrome and chest pain. 8. History of cardiac stents. 9. Diabetes. 10. Hypertension. 11. Hyperlipidemia. 12. Gastroesophageal reflux disease. 13. Benign prostatic hypertrophy. 14. Past medical history as noted. 15. The patient lives in an assisted living facility. Social history is otherwise negative. 16. MAR was noted. 17. Case was discussed with RN. 18. Family history is noncontributory. 19. Continue treatment per primary consultants. 20. Skin care protocol. 21. Notes and records were noted. 22. The patient is being evaluated for tremor by Neurology. 23. History of anemia. 24. Case was discussed with Dr. Haddad. Subjective Constitutional: Reports: fatigue, Denies: fever HEENT: Reports: congestion - less Respiratory: Reports: shortness of breath - less Cardiovascular: Denies: chest pain Gastrointestinal/Abdominal: Denies: nausea, vomiting Genitourinary: Denies: dysuria Neurologic: Denies: headache Psychiatric: Denies: depression Skin: Denies: rash Hematologic: Denies: bleeding Musculoskeletal: Denies: pain Allergies: Coded Allergies: ACETAMINOPHEN (Unverified Allergy, Unknown, 05/18/14) unknown reaction CHLORPROMAZINE (Unverified Allergy, Unknown, 05/18/14) HYDROCODONE (Unverified Allergy, Unknown, 05/18/14) unknown reaction IBUPROFEN (Unverified Allergy, Unknown, 05/18/14) IMIPRAMINE (Unverified Allergy, Unknown, shaking, 05/18/14) METHSUXIMIDE (Unverified Allergy, Unknown, 05/18/14) METHYLPHENIDATE (Unverified Allergy, Unknown, 05/18/14) Objective Vital Signs Last 24 Hour Vital Signs Date Time Temp Pulse Resp B/P (MAP) Pulse Ox O2 Delivery O2 Flow Rate FiO2 04/14/17 15:58 97.0 69 19 102/46 95 Room Air 04/14/17 12:00 97.0 82 22 113/57 90 Room Air 04/14/17 10:02 81 116/62 04/14/17 09:50 116/62 04/14/17 08:00 98.6 85 24 93 Nasal Cannula 2.0 04/14/17 04:25 98.0 99 20 128/63 96 Nasal Cannula 04/13/17 23:44 98.2 111 20 169/86 95 Nasal Cannula 04/13/17 20:45 97.0 71 19 113/66 96 Nasal Cannula 04/13/17 19:05 96 Nasal Cannula 2.0 28 04/13/17 19:05 Nasal Cannula 2.0 28 Height (Feet): 6 Height (Inches): 2.00 Weight (Pounds): 230 General Appearance: no acute distress HEENT: normocephalic, atraumatic, anicteric, mucous membranes moist, EOMI, pharynx normal, supple, no JVD Respiratory/Chest: no accessory muscle use, respiratory distress, crackles/ rales - less, rhonchi - bilaterally - less Cardiovascular: normal rate, regular rhythm, no gallop/murmur, no JVD Abdomen: normal bowel sounds, soft, non tender, no organomegaly, non distended Genitourinary: other - no abad Extremities: no cyanosis Skin: no rash Neurologic/Psychiatric: 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 New atelectasis in the left mid to lower lung. 04/14 - chest x-ray - Findings: There are bilateral lacunae the right interstitial and alveolar infiltrates versus edema. There is also bilateral perihilar atelectasis. Parenchymal disease on the right is similar in extent to that seen on the previous study, and considerably increased on the left. There is also some retrocardiac consolidation. The pleural spaces are probably clear. Impression: Persistent right and increasing left lung infiltrates versus edema, over 2 days Microbiology Date/Time Source Procedure Growth Status 04/12/17 08:25 Blood Blood Culture - Preliminary NO GROWTH AFTER 24 HOURS Resulted 04/12/17 16:40 Nasal Nares Influenza Types A,B Antigen (IAIN) - Final Complete 04/08/17 11:50 Rectum VRE Culture - Final NO VANCOMYCIN RESISTANT ENTEROCOCCUS ... Complete Microbiology Date/Time Source Procedure Growth Status 04/12/17 08:25 Blood Blood Culture - Preliminary NO GROWTH AFTER 24 HOURS Resulted 04/12/17 08:20 Blood Blood Culture - Preliminary NO GROWTH AFTER 24 HOURS Resulted 04/12/17 16:40 Nasal Nares Influenza Types A,B Antigen (IAIN) - Final Complete Laboratory Tests Test 04/14/17 05:05 White Blood Count 8.0 K/UL (4.8-10.8) Red Blood Count 2.54 M/UL (4.70-6.10) L Hemoglobin 8.2 G/DL (14.2-18.0) L Hematocrit 24.7 % (42.0-52.0) L Mean Corpuscular Volume 97 FL (80-99) Mean Corpuscular Hemoglobin 32.3 PG (27.0-31.0) H Mean Corpuscular Hemoglobin Concent 33.2 G/DL (32.0-36.0) Red Cell Distribution Width 13.4 % (11.6-14.8) Platelet Count 109 K/UL (150-450) L Mean Platelet Volume 6.1 FL (6.5-10.1) L Neutrophils (%) (Auto) 80.2 % (45.0-75.0) H Lymphocytes (%) (Auto) 8.8 % (20.0-45.0) L Monocytes (%) (Auto) 10.5 % (1.0-10.0) H Eosinophils (%) (Auto) 0.2 % (0.0-3.0) Basophils (%) (Auto) 0.3 % (0.0-2.0) Sodium Level 133 MMOL/L (136-145) L Potassium Level 4.4 MMOL/L (3.5-5.1) Chloride Level 99 MMOL/L (98-107) Carbon Dioxide Level 26 MMOL/L (21-32) Anion Gap 8 mmol/L (5-15) Blood Urea Nitrogen 29 mg/dL (7-18) H Creatinine 2.1 MG/DL (0.55-1.30) H Estimat Glomerular Filtration Rate 32.0 mL/min (>60) Glucose Level 228 MG/DL (74-106) H Calcium Level 8.3 MG/DL (8.5-10.1) L Phosphorus Level 2.8 MG/DL (2.5-4.9) Magnesium Level 2.0 MG/DL (1.8-2.4) Current Medications Medications (Trade) Dose Ordered Sig/Breanna Route PRN Reason Start Time Stop Time Status Last Admin Dose Admin Allopurinol (Allopurinol) 300 mg DAILY ORAL 04/13/17 09:00 05/13/17 08:59 04/14/17 09:42 Aspirin (ASA) 325 mg DAILY ORAL 04/09/17 09:00 05/09/17 08:59 04/14/17 09:44 Atorvastatin Calcium (Lipitor) 80 mg BEDTIME ORAL 04/08/17 21:00 05/08/17 20:59 04/12/17 21:20 Cetylpyridinium Chloride (Cepacol) 1 lozenge EVERY 2 HOURS PRN AIDE To Patient Comfort 04/11/17 22:30 05/11/17 22:29 04/11/17 23:27 Clonazepam (KlonoPIN) 0.5 mg DAILY ORAL 04/14/17 09:00 04/21/17 08:59 04/14/17 09:59 Clopidogrel Bisulfate (Plavix) 75 mg DAILY ORAL 04/09/17 09:00 05/09/17 08:59 04/14/17 10:03 Dextrose (Dextrose 50%) STAT PRN IV Hypoglycemia 04/08/17 16:15 05/08/17 16:14 Diphenhydramine HCl (Benadryl) 25 mg Q6H PRN ORAL Itching/Pruritis 04/08/17 16:15 05/08/17 16:14 04/11/17 21:36 Divalproex Sodium (Depakote) 1,000 mg Q12HR ORAL 04/08/17 21:00 05/08/17 20:59 04/14/17 09:54 Docusate Sodium (Colace) 100 mg TWICE A DAY ORAL 04/14/17 13:45 05/14/17 13:44 04/14/17 13:56 Heparin Sodium (Porcine) (Heparin 5000 units/ml) 5,000 units EVERY 12 HOURS SUBQ 04/12/17 10:00 05/12/17 09:59 04/13/17 21:06 Hydromorphone HCl (Dilaudid) 1 mg Q4H PRN IVP Severe Breakthru Pain (>7) 04/08/17 21:30 04/15/17 21:29 04/13/17 15:32 Hydromorphone HCl (Dilaudid) 2 mg Q4H PRN ORAL Moderate Pain (Pain Scale 4-6) 04/08/17 22:00 04/15/17 21:59 04/14/17 10:14 Insulin Aspart (NovoLOG) BEFORE MEALS AND HS SUBQ 04/08/17 17:30 05/08/17 17:29 04/14/17 12:27 Isosorbide Mononitrate (Imdur) 30 mg DAILY ORAL 04/09/17 09:00 05/09/17 08:59 04/14/17 09:50 Levofloxacin (Levaquin) 750 mg DAILY ORAL 04/14/17 16:15 04/21/17 16:14 UNV Meclizine HCl (Antivert) 25 mg Q6H PRN ORAL for dizziness 04/08/17 23:00 05/08/17 22:59 04/11/17 09:16 Metoprolol Succinate (Toprol XL) 25 mg DAILY ORAL 04/09/17 09:00 05/09/17 08:59 04/14/17 10:02 Nitroglycerin (Ntg) 0.4 mg Q5M PRN SL CHEST PAIN 04/08/17 16:15 05/08/17 16:14 Ondansetron HCl (Zofran) 4 mg Q6H PRN IVP Nausea & Vomiting 04/08/17 16:15 05/08/17 16:14 04/13/17 17:14 Pantoprazole (Protonix) 40 mg DAILY ORAL 04/09/17 09:00 05/09/17 08:59 04/14/17 09:56 Phosphorus (Phospha 250 Neutral) 250 mg THREE TIMES A DAY ORAL 04/13/17 09:00 05/13/17 08:59 04/14/17 13:56 Tamsulosin HCl (Flomax) 0.4 mg BID ORAL 04/12/17 09:00 05/09/17 08:59 04/14/17 09:58 ADAIR KEY Apr 14, 2017 16:46
--- NOTE | 2017-04-14 17:10 | Cardiac Electrophysiology PN ---
Assessment/Plan Assessment/Plan 1. Chest pain. Ruled out for myocardial infarction. Continue aspirin, Plavix, Toprol 25 mg carol, Lipitor and Imdur 30 mg daily. Echocardiogram showed Nl EF 71%. Nuclear stress test showed no ischemia 2. Hypertension. Continue Imdur 30 mg and Toprol-XL 25 mg daily. 3. Renal failure. Creatinine was around 2, Keep off VILMA inhibitor and angiotensin receptor blockers. 4. History of seizures. 5. History of skin cancer. DARVIN RN Subjective Subjective No chest pain.Transferred to [facility] . Echo EF 60%. Objective Last 24 Hour Vital Signs Date Time Temp Pulse Resp B/P (MAP) Pulse Ox O2 Delivery O2 Flow Rate FiO2 04/14/17 15:58 97.0 69 19 102/46 95 Room Air 04/14/17 12:00 97.0 82 22 113/57 90 Room Air 04/14/17 10:02 81 116/62 04/14/17 09:50 116/62 04/14/17 08:00 98.6 85 24 93 Nasal Cannula 2.0 04/14/17 04:25 98.0 99 20 128/63 96 Nasal Cannula 04/13/17 23:44 98.2 111 20 169/86 95 Nasal Cannula 04/13/17 20:45 97.0 71 19 113/66 96 Nasal Cannula 04/13/17 19:05 96 Nasal Cannula 2.0 28 04/13/17 19:05 Nasal Cannula 2.0 28 Laboratory Tests Test 04/14/17 05:05 White Blood Count 8.0 K/UL (4.8-10.8) Red Blood Count 2.54 M/UL (4.70-6.10) L Hemoglobin 8.2 G/DL (14.2-18.0) L Hematocrit 24.7 % (42.0-52.0) L Mean Corpuscular Volume 97 FL (80-99) Mean Corpuscular Hemoglobin 32.3 PG (27.0-31.0) H Mean Corpuscular Hemoglobin Concent 33.2 G/DL (32.0-36.0) Red Cell Distribution Width 13.4 % (11.6-14.8) Platelet Count 109 K/UL (150-450) L Mean Platelet Volume 6.1 FL (6.5-10.1) L Neutrophils (%) (Auto) 80.2 % (45.0-75.0) H Lymphocytes (%) (Auto) 8.8 % (20.0-45.0) L Monocytes (%) (Auto) 10.5 % (1.0-10.0) H Eosinophils (%) (Auto) 0.2 % (0.0-3.0) Basophils (%) (Auto) 0.3 % (0.0-2.0) Sodium Level 133 MMOL/L (136-145) L Potassium Level 4.4 MMOL/L (3.5-5.1) Chloride Level 99 MMOL/L (98-107) Carbon Dioxide Level 26 MMOL/L (21-32) Anion Gap 8 mmol/L (5-15) Blood Urea Nitrogen 29 mg/dL (7-18) H Creatinine 2.1 MG/DL (0.55-1.30) H Estimat Glomerular Filtration Rate 32.0 mL/min (>60) Glucose Level 228 MG/DL (74-106) H Calcium Level 8.3 MG/DL (8.5-10.1) L Phosphorus Level 2.8 MG/DL (2.5-4.9) Magnesium Level 2.0 MG/DL (1.8-2.4) Microbiology Date/Time Source Procedure Growth Status 04/12/17 08:25 Blood Blood Culture - Preliminary NO GROWTH AFTER 24 HOURS Resulted 04/12/17 08:20 Blood Blood Culture - Preliminary NO GROWTH AFTER 24 HOURS Resulted 04/12/17 16:40 Nasal Nares Influenza Types A,B Antigen (IAIN) - Final Complete Objective HEAD AND NECK: No JVD. LUNGS: Clear. CARDIOVASCULAR: Regular S1 and S2 with no gallop or murmur. ABDOMEN: Soft. EXTREMITIES: No pitting edema. SADE MARC Apr 14, 2017 17:10
[2017-04-14 19:37] VITALS: BP 106/60
[2017-04-14] MEDS: Atorvastatin 80mg tab ORAL SCH ×2 (21:00→21:42)
--- NOTE | 2017-04-14 21:31 | General Progress Note ---
Assessment/Plan Status: stable, progressing Assessment/Plan MDD agitation -cont current meds provided ro/st Subjective Neurologic/Psychiatric: Reports: anxiety, depressed, emotional problems Allergies: Coded Allergies: ACETAMINOPHEN (Unverified Allergy, Unknown, 05/18/14) unknown reaction CHLORPROMAZINE (Unverified Allergy, Unknown, 05/18/14) HYDROCODONE (Unverified Allergy, Unknown, 05/18/14) unknown reaction IBUPROFEN (Unverified Allergy, Unknown, 05/18/14) IMIPRAMINE (Unverified Allergy, Unknown, shaking, 05/18/14) METHSUXIMIDE (Unverified Allergy, Unknown, 05/18/14) METHYLPHENIDATE (Unverified Allergy, Unknown, 05/18/14) Subjective cont to be irritable and demanding Objective Last 24 Hour Vital Signs Date Time Temp Pulse Resp B/P (MAP) Pulse Ox O2 Delivery O2 Flow Rate FiO2 04/14/17 19:37 97.7 72 19 106/60 95 Nasal Cannula 04/14/17 15:58 97.0 69 19 102/46 95 Room Air 04/14/17 12:00 97.0 82 22 113/57 90 Room Air 04/14/17 10:02 81 116/62 04/14/17 09:50 116/62 04/14/17 08:00 98.6 85 24 93 Nasal Cannula 2.0 04/14/17 04:25 98.0 99 20 128/63 96 Nasal Cannula 04/13/17 23:44 98.2 111 20 169/86 95 Nasal Cannula Intake and Output 04/14/17 04/15/17 19:00 07:00 Intake Total 360 ml Balance 360 ml Intake Oral 360 ml Laboratory Tests 04/14/17 05:05: White Blood Count 8.0, Red Blood Count 2.54L, Hemoglobin 8.2L, Hematocrit 24.7L , Mean Corpuscular Volume 97, Mean Corpuscular Hemoglobin 32.3H, Mean Corpuscular Hemoglobin Concent 33.2, Red Cell Distribution Width 13.4, Platelet Count 109L, Mean Platelet Volume 6.1L, Neutrophils (%) (Auto) 80.2H, Lymphocytes (%) (Auto) 8.8L, Monocytes (%) (Auto) 10.5H, Eosinophils (%) (Auto) 0.2, Basophils (%) (Auto) 0.3, Sodium Level 133L, Potassium Level 4.4, Chloride Level 99, Carbon Dioxide Level 26, Anion Gap 8, Blood Urea Nitrogen 29H, Creatinine 2.1H, Estimat Glomerular Filtration Rate 32.0, Glucose Level 228H, Calcium Level 8.3L, Phosphorus Level 2.8, Magnesium Level 2.0 Height (Feet): 6 Height (Inches): 2.00 Weight (Pounds): 230 General Appearance: no apparent distress, alert, overweight Neurologic: alert, oriented x 3, responsive, depressed affect Amy Leroy M.D. Apr 14, 2017 21:31
[2017-04-14 23:49] VITALS: BP 113/67
[2017-04-15 04:16] VITALS: BP 135/58
[2017-04-15] MEDS: Iron Sucrose 100 MG in NS 55 ML IVPB ONE (05:30)
--- NOTE | 2017-04-15 05:32 | General Progress Note ---
Assessment/Plan Problem List: (1) GRZEGORZ on CKD (2) Chest pain ICD Codes: R07.9 - Chest pain, unspecified SNOMED: 89861651 (3) Hyperglycemia ICD Codes: R73.9 - Hyperglycemia, unspecified SNOMED: 18491541 (4) H/o MT in 2014 per patient (5) CAD s/p 8 stents per patient (6) HTN (hypertension) ICD Codes: I10 - Essential (primary) hypertension SNOMED: 15173114 (7) HLD (hyperlipidemia) ICD Codes: E78.5 - Hyperlipidemia, unspecified SNOMED: 40223604 (8) GERD (gastroesophageal reflux disease) ICD Codes: K21.9 - Gastro-esophageal reflux disease without esophagitis SNOMED: 850006485 (9) BPH (benign prostatic hyperplasia) ICD Codes: N40.0 - Benign prostatic hyperplasia without lower urinary tract symptoms SNOMED: 451108573 (10) DM2 (diabetes mellitus, type 2) ICD Codes: E11.9 - Type 2 diabetes mellitus without complications SNOMED: 96110603 (11) Tremor Assessment & Plan: likely essential tremor per neuro ICD Codes: R25.1 - Tremor, unspecified SNOMED: 37254065 (12) Urinary retention ICD Codes: R33.9 - Retention of urine, unspecified SNOMED: 355672667 (13) Hyponatremia ICD Codes: E87.1 - Hypo-osmolality and hyponatremia SNOMED: 57601810 (14) Hypomagnesemia ICD Codes: E83.42 - Hypomagnesemia SNOMED: 293961996 (15) Right pulmonary infiltrate on CXR Assessment & Plan: CAP vs HAP ICD Codes: R91.8 - Other nonspecific abnormal finding of lung field SNOMED: 203628808, 228285492 Status: stable Assessment/Plan D/c tele Serial trop neg x 3 F/u TTE--EF 60% Appreciate cardiology consult F/u nuclear stress test--neg Appreciate renal consult Trend BMP and lytes F/u renal U/S--unremarkable D/c IVFs s/p abad removal and voiding trial Flomax increased to 0.4mg BID Trend CBC Check Fe panel, ferritin --> low Fe and %sat, will give venofer Cont home meds including ASA, plavix, statin SSI Neuro consulted given tremor D/w cardiology switching from MTP to propranolol given essential tremor but cardiology does not recommend it given pt w/ cardiac history and MTP is preferred ID consulted given fevers Pulm consulted given R lung infiltrate on CXR s/p empiric ceftriaxone and azithro () per ID--> start levaquin 750mg daily Pain control, supportive care, bowel regimen HSQ for DVT ppx Awaiting d/c to [facility]ULL CODE D/w pt, RN, cardiology, renal, ID SW/CM regarding mgmt and dispo Subjective Date patient seen: Apr 14, 2017 Time patient seen: 14:00 ROS Limited/Unobtainable: No Constitutional: Reports: no symptoms HEENT: Reports: no symptoms Cardiovascular: Reports: chest pain Respiratory: Reports: cough, shortness of breath Gastrointestinal/Abdominal: Reports: no symptoms Genitourinary: Reports: no symptoms Neurologic/Psychiatric: Reports: no symptoms Endocrine: Reports: no symptoms Hematologic/Lymphatic: Reports: no symptoms Allergies: Coded Allergies: ACETAMINOPHEN (Unverified Allergy, Unknown, 05/18/14) unknown reaction CHLORPROMAZINE (Unverified Allergy, Unknown, 05/18/14) HYDROCODONE (Unverified Allergy, Unknown, 05/18/14) unknown reaction IBUPROFEN (Unverified Allergy, Unknown, 05/18/14) IMIPRAMINE (Unverified Allergy, Unknown, shaking, 05/18/14) METHSUXIMIDE (Unverified Allergy, Unknown, 05/18/14) METHYLPHENIDATE (Unverified Allergy, Unknown, 05/18/14) All Systems: reviewed and negative except above Subjective No acute o/n events Abad removed yesterday and pt voiding on own Pt states chest pain improving. Complains more of back and leg pain from spine issue and fibular fx. States PCP has referred him to ortho but he is awaiting insurance authorization to be seen. Denies f/c, n/v, d/c, abd pain. Tremor stable SOB and cough improving Objective Last 24 Hour Vital Signs Date Time Temp Pulse Resp B/P (MAP) Pulse Ox O2 Delivery O2 Flow Rate FiO2 04/15/17 04:16 97.0 108 19 135/58 95 Nasal Cannula 04/14/17 23:49 97.0 99 19 113/67 96 Nasal Cannula 04/14/17 19:37 97.7 72 19 106/60 95 Nasal Cannula 04/14/17 15:58 97.0 69 19 102/46 95 Room Air 04/14/17 12:00 97.0 82 22 113/57 90 Room Air 04/14/17 10:02 81 116/62 04/14/17 09:50 116/62 04/14/17 08:00 98.6 85 24 93 Nasal Cannula 2.0 Height (Feet): 6 Height (Inches): 2.00 Weight (Pounds): 230 Objective General: alert, cooperative, no distress, appears stated age Head: normocephalic, without obvious abnormality, atraumatic Eyes: conjunctivae/corneas clear. PERRL, EOM's intact Throat: lips, mucosa, and tongue normal. MMM Neck: supple, symmetrical, trachea midline, and no JVD Lungs: clear to auscultation bilaterally Heart: regular rate and rhythm, S1, S2 normal, no murmur, click, rub or gallop Abdomen: soft, non-tender, non-distended, bowel sounds normal; no masses or organomegaly Extremities: extremities normal, atraumatic, no cyanosis or edema Pulses: 2+ and symmetric Skin: skin color, texture, turgor normal; no rashes or lesions Neurologic: grossly normal, no focal deficits Catie Dillon M.D. Apr 15, 2017 05:32
[2017-04-15] MEDS: NovoLOG Insulin Flexpen SUBQ SCH ×4 (05:53→21:00)
[2017-04-15 08:00] VITALS: BP 126/63
[2017-04-15] MEDS: Heparin 5000 units/ml inj SUBQ SCH ×2 (09:00→21:00)
--- NOTE | 2017-04-15 09:57 | Cardiac Electrophysiology PN ---
Assessment/Plan Assessment/Plan 1. Chest pain. Ruled out for myocardial infarction. Continue aspirin, Plavix, Toprol 25 mg carol, Lipitor and Imdur 30 mg daily. Echocardiogram showed Nl EF 71%. Nuclear stress test showed no ischemia 2. Hypertension. Continue Imdur 30 mg and Toprol-XL 25 mg daily. 3. Renal failure. Creatinine was around 2, Keep off VILMA inhibitor and angiotensin receptor blockers. 4. History of seizures. 5. History of skin cancer. 6. SOB on O2. Weaning in progress. DARVIN RN DC planning today. Subjective Subjective No chest pain or SOB. Now has been off Oxygen for 20 minutes trying to see if Sat ok Off O2 before DC back to Assisted living. RN student at bedside.. Echo EF 60%. Objective Last 24 Hour Vital Signs Date Time Temp Pulse Resp B/P (MAP) Pulse Ox O2 Delivery O2 Flow Rate FiO2 04/15/17 04:16 97.0 108 19 135/58 95 Nasal Cannula 04/14/17 23:49 97.0 99 19 113/67 96 Nasal Cannula 04/14/17 19:37 97.7 72 19 106/60 95 Nasal Cannula 04/14/17 15:58 97.0 69 19 102/46 95 Room Air 04/14/17 12:00 97.0 82 22 113/57 90 Room Air 04/14/17 10:02 81 116/62 Current Medications Medications (Trade) Dose Ordered Sig/Breanna Route PRN Reason Start Time Stop Time Status Last Admin Dose Admin Allopurinol (Allopurinol) 300 mg DAILY ORAL 04/13/17 09:00 05/13/17 08:59 04/14/17 09:42 Aspirin (ASA) 325 mg DAILY ORAL 04/09/17 09:00 05/09/17 08:59 04/14/17 09:44 Atorvastatin Calcium (Lipitor) 80 mg BEDTIME ORAL 04/08/17 21:00 05/08/17 20:59 04/12/17 21:20 Cetylpyridinium Chloride (Cepacol) 1 lozenge EVERY 2 HOURS PRN AIDE To Patient Comfort 04/11/17 22:30 05/11/17 22:29 04/11/17 23:27 Clonazepam (KlonoPIN) 0.5 mg DAILY ORAL 04/14/17 09:00 04/21/17 08:59 04/14/17 09:59 Clopidogrel Bisulfate (Plavix) 75 mg DAILY ORAL 04/09/17 09:00 05/09/17 08:59 04/14/17 10:03 Dextrose (Dextrose 50%) STAT PRN IV Hypoglycemia 04/08/17 16:15 05/08/17 16:14 Diphenhydramine HCl (Benadryl) 25 mg Q6H PRN ORAL Itching/Pruritis 04/08/17 16:15 05/08/17 16:14 04/11/17 21:36 Divalproex Sodium (Depakote) 1,000 mg Q12HR ORAL 04/08/17 21:00 05/08/17 20:59 04/14/17 21:42 Docusate Sodium (Colace) 100 mg TWICE A DAY ORAL 04/14/17 13:45 05/14/17 13:44 04/14/17 17:21 Heparin Sodium (Porcine) (Heparin 5000 units/ml) 5,000 units EVERY 12 HOURS SUBQ 04/12/17 10:00 05/12/17 09:59 04/14/17 21:45 Hydromorphone HCl (Dilaudid) 1 mg Q4H PRN IVP Severe Breakthru Pain (>7) 04/08/17 21:30 04/15/17 21:29 04/13/17 15:32 Hydromorphone HCl (Dilaudid) 2 mg Q4H PRN ORAL Moderate Pain (Pain Scale 4-6) 04/08/17 22:00 04/15/17 21:59 04/14/17 10:14 Insulin Aspart (NovoLOG) BEFORE MEALS AND HS SUBQ 04/08/17 17:30 05/08/17 17:29 04/15/17 05:53 Isosorbide Mononitrate (Imdur) 30 mg DAILY ORAL 04/09/17 09:00 05/09/17 08:59 04/14/17 09:50 Levofloxacin (Levaquin) 750 mg DAILY ORAL 04/14/17 18:00 04/21/17 17:59 04/14/17 17:21 Meclizine HCl (Antivert) 25 mg Q6H PRN ORAL for dizziness 04/08/17 23:00 05/08/17 22:59 04/11/17 09:16 Metoprolol Succinate (Toprol XL) 25 mg DAILY ORAL 04/09/17 09:00 05/09/17 08:59 04/14/17 10:02 Nitroglycerin (Ntg) 0.4 mg Q5M PRN SL CHEST PAIN 04/08/17 16:15 05/08/17 16:14 Ondansetron HCl (Zofran) 4 mg Q6H PRN IVP Nausea & Vomiting 04/08/17 16:15 05/08/17 16:14 04/13/17 17:14 Pantoprazole (Protonix) 40 mg DAILY ORAL 04/09/17 09:00 05/09/17 08:59 04/14/17 09:56 Phosphorus (Phospha 250 Neutral) 250 mg THREE TIMES A DAY ORAL 04/13/17 09:00 05/13/17 08:59 04/14/17 17:21 Tamsulosin HCl (Flomax) 0.4 mg BID ORAL 04/12/17 09:00 05/09/17 08:59 04/14/17 17:21 Microbiology Date/Time Source Procedure Growth Status 04/12/17 16:40 Nasal Nares Influenza Types A,B Antigen (IAIN) - Final Complete Objective HEAD AND NECK: No JVD. LUNGS: Clear. CARDIOVASCULAR: Regular S1 and S2 with no gallop or murmur. ABDOMEN: Soft. EXTREMITIES: No pitting edema. SADE MARC Apr 15, 2017 09:56
[2017-04-15] MEDS: Depakote 500mg tab ORAL SCH ×2 (10:30→21:00)
[2017-04-15] MEDS: Docusate 100mg cap ORAL SCH ×2 (10:31→18:13)
[2017-04-15] MEDS: Imdur 30mg tab ORAL SCH (10:37)
[2017-04-15] MEDS: Phospha 250 Neutral tab ORAL SCH ×3 (10:38→18:13)
[2017-04-15] MEDS: Tamsulosin 0.4mg cap ORAL SCH ×2 (10:38→18:13)
[2017-04-15] MEDS: Metoprolol Succinate XL 25mg tab ORAL SCH (10:39)
[2017-04-15] MEDS: clonazePAM 0.5mg tab ORAL SCH (10:44)
[2017-04-15 12:00] VITALS: BP 111/58
--- NOTE | 2017-04-15 12:17 | Nephrology Progress Note ---
Assessment/Plan Problem List: (1) Acute on chronic renal failure (2) Urinary retention Assessment had urinary retention- now has abad- Cr last 2.1 Renal failure ? Chronic Anemia, Etiology? High TSh, Hypothyroid ACS DM , high A1c HyperUrecemia Obese Plan Plan: DC IV DC abad voiding trial keep BP above 100 syst Kidney MABEL- Right kidney measures 10.1 cm in length. Left kidney measures 12 cm in length. Both kidneys demonstrate normal echogenicity. No hydronephrosis. per cardiology up Flomax dose Per orders Subjective ROS Limited/Unobtainable: No Constitutional: Reports: malaise, weakness Objective Objective Last 24 Hour Vital Signs Date Time Temp Pulse Resp B/P (MAP) Pulse Ox O2 Delivery O2 Flow Rate FiO2 04/15/17 10:39 78 130/65 04/15/17 10:37 130/65 04/15/17 08:00 98.2 94 30 126/63 91 Nasal Cannula 04/15/17 04:16 97.0 108 19 135/58 95 Nasal Cannula 04/14/17 23:49 97.0 99 19 113/67 96 Nasal Cannula 04/14/17 19:37 97.7 72 19 106/60 95 Nasal Cannula 04/14/17 15:58 97.0 69 19 102/46 95 Room Air Height (Feet): 6 Height (Inches): 2.00 Weight (Pounds): 230 General Appearance: no apparent distress Cardiovascular: other - variable Respiratory/Chest: decreased breath sounds Abdomen: soft Objective PE not changed RANGEL PERES Apr 15, 2017 12:17
--- NOTE | 2017-04-15 13:22 | Consultation ---
History of Present Illness General Date patient seen: Apr 15, 2017 Chief Complaint: Chest Pain Referring physician: Dr. Nick Reason for Consultation: evaluation of hypoxemia Present Illness HPI 66 year old male with hx of DM, Hypothyroids, CAD, s/p Cardiac stents, seizure disorder, never smoked, childhood asthma, presented to [facility] a few days ago with CC of chest pain. Was seen by cardiology, Nuclear stress testing was done, which was negative. He had one episode of fever, was seen by ID, started on abx. His CXR on presentation was negative. But a repeat CXR showed infiltrate or congestion. He has been afebrile, on nasal cannula. He doesn't have any dyspnea or congestion. Allergies: Coded Allergies: ACETAMINOPHEN (Unverified Allergy, Unknown, 05/18/14) unknown reaction CHLORPROMAZINE (Unverified Allergy, Unknown, 05/18/14) HYDROCODONE (Unverified Allergy, Unknown, 05/18/14) unknown reaction IBUPROFEN (Unverified Allergy, Unknown, 05/18/14) IMIPRAMINE (Unverified Allergy, Unknown, shaking, 05/18/14) METHSUXIMIDE (Unverified Allergy, Unknown, 05/18/14) METHYLPHENIDATE (Unverified Allergy, Unknown, 05/18/14) Medication History Scheduled Aspirin* (Aspirin*), 325 MG ORAL DAILY, (Reported) Atorvastatin Calcium* (Lipitor*), 80 MG ORAL BEDTIME, (Reported) Clopidogrel Bisulfate* (Plavix*), 75 MG ORAL DAILY, (Reported) Divalproex Sodium* (Depakote*), 1,000 MG PO Q12HR, (Reported) Insulin Glargine (Lantus), 26 SUBQ BID, (Reported) Insulin Regular, Human* (Novolin R*), 0 SUBQ .SLIDING SCALE, (Reported) Isosorbide Mononitrate* (Imdur*), 30 MG ORAL DAILY, (Reported) Levofloxacin* (Levaquin*), 750 MG ORAL DAILY Metoprolol Succinate* (Toprol Xl*), 25 MG ORAL DAILY, (Reported) Nitroglycerin (Nitroglycerin), 0.4 MG SL PRN, (Reported) Pantoprazole* (Protonix*), 40 MG ORAL DAILY, (Reported) Tamsulosin HCl (Flomax), 0.4 MG ORAL DAILY, (Reported) Tamsulosin HCl (Flomax), 0.4 MG ORAL BID Patient History Healthcare decision maker Resuscitation status Advanced Directive on File No Past Medical/Surgical History Past Medical/Surgical History: (1) Diabetes (2) DM2 (diabetes mellitus, type 2) Review of Systems Constitutional: Reports: no symptoms Eye: Reports: no symptoms ENT: Reports: no symptoms Respiratory: Reports: no symptoms Cardiovascular: Reports: no symptoms Gastrointestinal: Reports: no symptoms Physical Exam General Appearance: WD/WN Lines, tubes and drains: peripheral HEENT: normocephalic, atraumatic, anicteric Neck: non-tender, normal alignment Respiratory/Chest: chest wall non-tender, lungs clear Breasts: no masses Cardiovascular/Chest: normal peripheral pulses Abdomen: normal bowel sounds, soft Extremities: normal range of motion, no calf tenderness Skin Exam: normal pigmentation, warm/dry Last 24 Hour Vital Signs Date Time Temp Pulse Resp B/P (MAP) Pulse Ox O2 Delivery O2 Flow Rate FiO2 04/15/17 10:39 78 130/65 04/15/17 10:37 130/65 04/15/17 08:00 98.2 94 30 126/63 91 Nasal Cannula 04/15/17 04:16 97.0 108 19 135/58 95 Nasal Cannula 04/14/17 23:49 97.0 99 19 113/67 96 Nasal Cannula 04/14/17 19:37 97.7 72 19 106/60 95 Nasal Cannula 04/14/17 15:58 97.0 69 19 102/46 95 Room Air Height (Feet): 6 Height (Inches): 2.00 Weight (Pounds): 230 Medications Current Medications Medications (Trade) Dose Ordered Sig/Breanna Route PRN Reason Start Time Stop Time Status Last Admin Dose Admin Allopurinol (Allopurinol) 300 mg DAILY ORAL 04/13/17 09:00 05/13/17 08:59 04/15/17 10:33 Aspirin (ASA) 325 mg DAILY ORAL 04/09/17 09:00 05/09/17 08:59 04/15/17 10:29 Atorvastatin Calcium (Lipitor) 80 mg BEDTIME ORAL 04/08/17 21:00 05/08/17 20:59 04/12/17 21:20 Cetylpyridinium Chloride (Cepacol) 1 lozenge EVERY 2 HOURS PRN AIDE To Patient Comfort 04/11/17 22:30 05/11/17 22:29 04/11/17 23:27 Clonazepam (KlonoPIN) 0.5 mg DAILY ORAL 04/14/17 09:00 04/21/17 08:59 04/15/17 10:44 Clopidogrel Bisulfate (Plavix) 75 mg DAILY ORAL 04/09/17 09:00 05/09/17 08:59 04/15/17 10:37 Dextrose (Dextrose 50%) STAT PRN IV Hypoglycemia 04/08/17 16:15 05/08/17 16:14 Diphenhydramine HCl (Benadryl) 25 mg Q6H PRN ORAL Itching/Pruritis 04/08/17 16:15 05/08/17 16:14 04/11/17 21:36 Divalproex Sodium (Depakote) 1,000 mg Q12HR ORAL 04/08/17 21:00 05/08/17 20:59 04/15/17 10:30 Docusate Sodium (Colace) 100 mg TWICE A DAY ORAL 04/14/17 13:45 05/14/17 13:44 04/15/17 10:31 Heparin Sodium (Porcine) (Heparin 5000 units/ml) 5,000 units EVERY 12 HOURS SUBQ 04/12/17 10:00 05/12/17 09:59 04/14/17 21:45 Hydromorphone HCl (Dilaudid) 1 mg Q4H PRN IVP Severe Breakthru Pain (>7) 04/08/17 21:30 04/15/17 21:29 04/13/17 15:32 Hydromorphone HCl (Dilaudid) 2 mg Q4H PRN ORAL Moderate Pain (Pain Scale 4-6) 04/08/17 22:00 04/15/17 21:59 04/14/17 10:14 Insulin Aspart (NovoLOG) BEFORE MEALS AND HS SUBQ 04/08/17 17:30 05/08/17 17:29 04/15/17 12:10 Isosorbide Mononitrate (Imdur) 30 mg DAILY ORAL 04/09/17 09:00 05/09/17 08:59 04/15/17 10:37 Levofloxacin (Levaquin) 750 mg DAILY ORAL 04/14/17 18:00 04/21/17 17:59 04/15/17 10:45 Meclizine HCl (Antivert) 25 mg Q6H PRN ORAL for dizziness 04/08/17 23:00 05/08/17 22:59 04/11/17 09:16 Metoprolol Succinate (Toprol XL) 25 mg DAILY ORAL 04/09/17 09:00 05/09/17 08:59 04/15/17 10:39 Nitroglycerin (Ntg) 0.4 mg Q5M PRN SL CHEST PAIN 04/08/17 16:15 05/08/17 16:14 Ondansetron HCl (Zofran) 4 mg Q6H PRN IVP Nausea & Vomiting 04/08/17 16:15 05/08/17 16:14 04/13/17 17:14 Pantoprazole (Protonix) 40 mg DAILY ORAL 04/09/17 09:00 05/09/17 08:59 04/15/17 10:32 Phosphorus (Phospha 250 Neutral) 250 mg THREE TIMES A DAY ORAL 04/13/17 09:00 05/13/17 08:59 04/15/17 13:02 Tamsulosin HCl (Flomax) 0.4 mg BID ORAL 04/12/17 09:00 05/09/17 08:59 04/15/17 10:38 Assessment/Plan Problem List: (1) ACS (acute coronary syndrome) ICD Codes: I20.0 - Unstable angina SNOMED: 020679617 (2) Pneumonia ICD Codes: J18.9 - Pneumonia, unspecified organism SNOMED: 409700320 (3) Pulmonary edema ICD Codes: J81.1 - Chronic pulmonary edema SNOMED: 99540587 (4) Hx of fracture of fibula ICD Codes: Z87.81 - Personal history of (healed) traumatic fracture SNOMED: 593873182 (5) GRZEGORZ vs CKD (6) DM2 (diabetes mellitus, type 2) ICD Codes: E11.9 - Type 2 diabetes mellitus without complications SNOMED: 42034913 Assessment/Plan continue levoflox for now check venous doppler as screening for PE. incentive spirometry chest pt JEREMY JEAN BAPTISTE Apr 15, 2017 13:22
--- NOTE | 2017-04-15 14:50 | Infectious Diseases Prog Note ---
Assessment/Plan Assessment/Plan ASSESSMENT AND PLAN: 1. cap, congestion, sob, cp, fevers - oral levofloxacin - day #3 abx - chest x-ray worse, ? fluid, clinically better with less fevers and chills - fevers better - check sc, if possible - check labs - can discharge on po levofloxacin x 5 days if continues to improve and chest x-rays stable - d/w Dr. Haddad - pulmonary evaluation, ? CT chest 2. possible sepsis, abx, w/u in progress 3. Tachycardia. 4. Elevated creatinine. 5. Acute kidney injury. 6. Coronary artery disease and myocardial infarction. 7. Acute coronary syndrome and chest pain. 8. History of cardiac stents. 9. Diabetes. 10. Hypertension. 11. Hyperlipidemia. 12. Gastroesophageal reflux disease. 13. Benign prostatic hypertrophy. 14. Past medical history as noted. 15. The patient lives in an assisted living facility. Social history is otherwise negative. 16. MAR was noted. 17. Case was discussed with RN. 18. Family history is noncontributory. 19. Continue treatment per primary consultants. 20. Skin care protocol. 21. Notes and records were noted. 22. The patient is being evaluated for tremor by Neurology. 23. History of anemia. 24. Case was discussed with Dr. Haddad. Subjective Constitutional: Denies: fever HEENT: Denies: congestion Respiratory: Denies: shortness of breath Cardiovascular: Denies: chest pain Gastrointestinal/Abdominal: Denies: nausea, vomiting, diarrhea Neurologic: Denies: headache Psychiatric: Denies: depression Skin: Denies: rash Hematologic: Denies: bleeding Musculoskeletal: Denies: pain Allergies: Coded Allergies: ACETAMINOPHEN (Unverified Allergy, Unknown, 05/18/14) unknown reaction CHLORPROMAZINE (Unverified Allergy, Unknown, 05/18/14) HYDROCODONE (Unverified Allergy, Unknown, 05/18/14) unknown reaction IBUPROFEN (Unverified Allergy, Unknown, 05/18/14) IMIPRAMINE (Unverified Allergy, Unknown, shaking, 05/18/14) METHSUXIMIDE (Unverified Allergy, Unknown, 05/18/14) METHYLPHENIDATE (Unverified Allergy, Unknown, 05/18/14) Objective Vital Signs Last 24 Hour Vital Signs Date Time Temp Pulse Resp B/P (MAP) Pulse Ox O2 Delivery O2 Flow Rate FiO2 11/15/17 12:00 97.5 81 30 111/58 89 Nasal Cannula 04/15/17 10:39 78 130/65 04/15/17 10:37 130/65 04/15/17 08:00 98.2 94 30 126/63 91 Nasal Cannula 04/15/17 04:16 97.0 108 19 135/58 95 Nasal Cannula 04/14/17 23:49 97.0 99 19 113/67 96 Nasal Cannula 04/14/17 19:37 97.7 72 19 106/60 95 Nasal Cannula 04/14/17 15:58 97.0 69 19 102/46 95 Room Air Height (Feet): 6 Height (Inches): 2.00 Weight (Pounds): 230 General Appearance: no acute distress HEENT: normocephalic, atraumatic, anicteric Respiratory/Chest: lungs clear, normal breath sounds, no respiratory distress, no accessory muscle use Cardiovascular: normal rate, regular rhythm, no gallop/murmur, no JVD Abdomen: normal bowel sounds, soft, non tender, no organomegaly, non distended Extremities: no cyanosis Skin: no rash Neurologic/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 New atelectasis in the left mid to lower lung. 04/14 - chest x-ray - Findings: There are bilateral lacunae the right interstitial and alveolar infiltrates versus edema. There is also bilateral perihilar atelectasis. Parenchymal disease on the right is similar in extent to that seen on the previous study, and considerably increased on the left. There is also some retrocardiac consolidation. The pleural spaces are probably clear. Impression: Persistent right and increasing left lung infiltrates versus edema, over 2 days Microbiology Date/Time Source Procedure Growth Status 04/12/17 16:40 Nasal Nares Influenza Types A,B Antigen (IAIN) - Final Complete Labs Test 04/13/17 06:00 04/13/17 11:30 04/14/17 05:05 Sodium Level 138 MMOL/L (136-145) 133 MMOL/L (136-145) Potassium Level 4.5 MMOL/L (3.5-5.1) 4.4 MMOL/L (3.5-5.1) Chloride Level 105 MMOL/L (98-107) 99 MMOL/L (98-107) Carbon Dioxide Level 23 MMOL/L (21-32) 26 MMOL/L (21-32) Anion Gap 10 mmol/L (5-15) 8 mmol/L (5-15) Blood Urea Nitrogen 30 mg/dL (7-18) 29 mg/dL (7-18) Creatinine 1.9 MG/DL (0.55-1.30) 2.1 MG/DL (0.55-1.30) Estimat Glomerular Filtration Rate 35.9 mL/min (>60) 32.0 mL/min (>60) Glucose Level 173 MG/DL (74-106) 228 MG/DL (74-106) Uric Acid 9.9 MG/DL (2.6-7.2) Calcium Level 8.7 MG/DL (8.5-10.1) 8.3 MG/DL (8.5-10.1) Phosphorus Level 1.9 MG/DL (2.5-4.9) 2.8 MG/DL (2.5-4.9) Magnesium Level 1.9 MG/DL (1.8-2.4) 2.0 MG/DL (1.8-2.4) Total Bilirubin 0.7 MG/DL (0.2-1.0) Aspartate Amino Transf (AST/SGOT) 26 U/L (15-37) Alanine Aminotransferase (ALT/SGPT) 20 U/L (12-78) Alkaline Phosphatase 57 U/L (46-116) C-Reactive Protein, Quantitative 24.0 mg/dL (0.00-0.90) Pro-B-Type Natriuretic Peptide 1132 pg/mL (0-125) Total Protein 6.5 G/DL (6.4-8.2) Albumin 2.7 G/DL (3.4-5.0) Globulin 3.8 g/dL Albumin/Globulin Ratio 0.7 (1.0-2.7) White Blood Count 8.2 K/UL (4.8-10.8) 8.0 K/UL (4.8-10.8) Red Blood Count 2.69 M/UL (4.70-6.10) 2.54 M/UL (4.70-6.10) Hemoglobin 8.3 G/DL (14.2-18.0) 8.2 G/DL (14.2-18.0) Hematocrit 25.8 % (42.0-52.0) 24.7 % (42.0-52.0) Mean Corpuscular Volume 96 FL (80-99) 97 FL (80-99) Mean Corpuscular Hemoglobin 30.8 PG (27.0-31.0) 32.3 PG (27.0-31.0) Mean Corpuscular Hemoglobin Concent 32.1 G/DL (32.0-36.0) 33.2 G/DL (32.0-36.0) Red Cell Distribution Width 13.4 % (11.6-14.8) 13.4 % (11.6-14.8) Platelet Count 114 K/UL (150-450) 109 K/UL (150-450) Mean Platelet Volume 5.5 FL (6.5-10.1) 6.1 FL (6.5-10.1) Neutrophils (%) (Auto) 81.4 % (45.0-75.0) 80.2 % (45.0-75.0) Lymphocytes (%) (Auto) 8.6 % (20.0-45.0) 8.8 % (20.0-45.0) Monocytes (%) (Auto) 9.1 % (1.0-10.0) 10.5 % (1.0-10.0) Eosinophils (%) (Auto) 0.4 % (0.0-3.0) 0.2 % (0.0-3.0) Basophils (%) (Auto) 0.5 % (0.0-2.0) 0.3 % (0.0-2.0) Iron Level 12 ug/dL (50-175) Total Iron Binding Capacity 190 ug/dL (250-450) Percent Iron Saturation 6 % (15-50) Unsaturated Iron Binding 178 ug/dL (112-346) Ferritin 137 NG/ML (8-388) Current Medications Medications (Trade) Dose Ordered Sig/Brenana Route PRN Reason Start Time Stop Time Status Last Admin Dose Admin Allopurinol (Allopurinol) 300 mg DAILY ORAL 04/13/17 09:00 05/13/17 08:59 04/15/17 10:33 Aspirin (ASA) 325 mg DAILY ORAL 04/09/17 09:00 05/09/17 08:59 04/15/17 10:29 Atorvastatin Calcium (Lipitor) 80 mg BEDTIME ORAL 04/08/17 21:00 05/08/17 20:59 04/12/17 21:20 Cetylpyridinium Chloride (Cepacol) 1 lozenge EVERY 2 HOURS PRN AIDE To Patient Comfort 04/11/17 22:30 05/11/17 22:29 04/11/17 23:27 Clonazepam (KlonoPIN) 0.5 mg DAILY ORAL 04/14/17 09:00 04/21/17 08:59 04/15/17 10:44 Clopidogrel Bisulfate (Plavix) 75 mg DAILY ORAL 04/09/17 09:00 05/09/17 08:59 04/15/17 10:37 Dextrose (Dextrose 50%) STAT PRN IV Hypoglycemia 04/08/17 16:15 05/08/17 16:14 Diphenhydramine HCl (Benadryl) 25 mg Q6H PRN ORAL Itching/Pruritis 04/08/17 16:15 05/08/17 16:14 04/11/17 21:36 Divalproex Sodium (Depakote) 1,000 mg Q12HR ORAL 04/08/17 21:00 05/08/17 20:59 04/15/17 10:30 Docusate Sodium (Colace) 100 mg TWICE A DAY ORAL 04/14/17 13:45 05/14/17 13:44 04/15/17 10:31 Heparin Sodium (Porcine) (Heparin 5000 units/ml) 5,000 units EVERY 12 HOURS SUBQ 04/12/17 10:00 05/12/17 09:59 04/14/17 21:45 Hydromorphone HCl (Dilaudid) 1 mg Q4H PRN IVP Severe Breakthru Pain (>7) 04/08/17 21:30 04/15/17 21:29 04/13/17 15:32 Hydromorphone HCl (Dilaudid) 2 mg Q4H PRN ORAL Moderate Pain (Pain Scale 4-6) 04/08/17 22:00 04/15/17 21:59 04/14/17 10:14 Insulin Aspart (NovoLOG) BEFORE MEALS AND HS SUBQ 04/08/17 17:30 05/08/17 17:29 04/15/17 12:10 Isosorbide Mononitrate (Imdur) 30 mg DAILY ORAL 04/09/17 09:00 05/09/17 08:59 04/15/17 10:37 Levofloxacin (Levaquin) 750 mg DAILY ORAL 04/14/17 18:00 04/21/17 17:59 04/15/17 10:45 Meclizine HCl (Antivert) 25 mg Q6H PRN ORAL for dizziness 04/08/17 23:00 05/08/17 22:59 04/11/17 09:16 Metoprolol Succinate (Toprol XL) 25 mg DAILY ORAL 04/09/17 09:00 05/09/17 08:59 04/15/17 10:39 Nitroglycerin (Ntg) 0.4 mg Q5M PRN SL CHEST PAIN 04/08/17 16:15 05/08/17 16:14 Ondansetron HCl (Zofran) 4 mg Q6H PRN IVP Nausea & Vomiting 04/08/17 16:15 05/08/17 16:14 04/13/17 17:14 Pantoprazole (Protonix) 40 mg DAILY ORAL 04/09/17 09:00 05/09/17 08:59 04/15/17 10:32 Phosphorus (Phospha 250 Neutral) 250 mg THREE TIMES A DAY ORAL 04/13/17 09:00 05/13/17 08:59 04/15/17 13:02 Tamsulosin HCl (Flomax) 0.4 mg BID ORAL 04/12/17 09:00 05/09/17 08:59 04/15/17 10:38 ADAIR KEY Apr 15, 2017 14:50
[2017-04-15 16:00] VITALS: BP 131/61
[2017-04-15 20:00] VITALS: BP 121/59
[2017-04-15] MEDS ORDERED: Pneumococcal Vaccine 25mcg/0.5ml IM ONE (20:00)
[2017-04-15 20:12] LABS: MYCOPLASMA PNEUMONIAE AB IGG <100 U/mL (0-99); MYCOPLASMA PNEUMONIAE AB IGM <770 U/mL (0-769)
[2017-04-15] MEDS: Atorvastatin 80mg tab ORAL SCH (21:00)
--- NOTE | 2017-04-15 23:58 | General Progress Note ---
Assessment/Plan Status: stable, progressing Assessment/Plan MDD agitation -cont current meds provided ro/st Subjective Neurologic/Psychiatric: Reports: anxiety, depressed Allergies: Coded Allergies: ACETAMINOPHEN (Unverified Allergy, Unknown, 05/18/14) unknown reaction CHLORPROMAZINE (Unverified Allergy, Unknown, 05/18/14) HYDROCODONE (Unverified Allergy, Unknown, 05/18/14) unknown reaction IBUPROFEN (Unverified Allergy, Unknown, 05/18/14) IMIPRAMINE (Unverified Allergy, Unknown, shaking, 05/18/14) METHSUXIMIDE (Unverified Allergy, Unknown, 05/18/14) METHYLPHENIDATE (Unverified Allergy, Unknown, 05/18/14) Subjective cont to be irritable and demanding Objective Last 24 Hour Vital Signs Date Time Temp Pulse Resp B/P (MAP) Pulse Ox O2 Delivery O2 Flow Rate FiO2 04/15/17 20:00 97.0 04/15/17 20:00 79 20 121/59 96 Nasal Cannula 2.0 04/15/17 19:18 96 Nasal Cannula 3.0 32 04/15/17 19:18 Nasal Cannula 3.0 32 04/15/17 16:00 97.3 66 28 131/61 93 Nasal Cannula 2.0 04/15/17 15:36 Nasal Cannula 3.0 32 04/15/17 15:35 95 Nasal Cannula 3.0 32 04/15/17 12:00 97.5 81 30 111/58 89 Nasal Cannula 04/15/17 10:39 78 130/65 04/15/17 10:37 130/65 04/15/17 08:00 98.2 94 30 126/63 91 Nasal Cannula 04/15/17 04:16 97.0 108 19 135/58 95 Nasal Cannula Intake and Output 04/15/17 04/16/17 19:00 07:00 Output Total 700 ml Balance -700 ml Output Urine Total 700 ml # Voids 3 Height (Feet): 6 Height (Inches): 2.00 Weight (Pounds): 230 General Appearance: no apparent distress, alert Neurologic: alert, disoriented, depressed affect Amy Leroy M.D. Apr 15, 2017 23:58
--- NOTE | 2017-04-16 08:13 | Discharge Summary ---
Discharge Summary Hospital Course Date of Admission Apr 08, 2017 at 14:00 Date of Discharge Apr 15, 2017 at 21:15 Admitting Diagnosis chest pain, SOB, r/o ACS HPI 66y/o male with pmh of VA in 2013 w/ CAD s/p 8 stents per pt (no records available), HTN, HLD, DM2, GERD, BPH who presents with chest pain Pt states chest pain started 10:30AM on day of presentation to ED. He states it has been constant since and is described as an "elephant" sitting on his chest w/ associated L arm pain and nauseous. He states pain is similar to chest pain he experienced in 2013 when he had his VA. He also c/o back pain and L leg pain as he has spine issues and a L fibular fracture which was sustained Dec 2016. Pt denies f/c, emesis, abd pain, SOB. In field pt given ASA and NTG w/o much relief. In ED, VSS, trop neg. Consultations Cardiology, Infectious disease, Pulmonology Hospital Course Pt was admitted to [facility] and ruled out for ACS with serial trop/EKG. TTE was unremarkable. Pt underwent nuclear cardiac stress test which was also unremarkable. He was cleared for discharge by cardiology. However, hospital course complicated by urinary retention and GRZEGORZ. Kapadia was placed w/ improvement. SCr improved w/ IVFs. Pt then with fever, cough and CXR w/ R sided infiltrate and was diagnosed with pneumonia. He was started on IV antibiotics per ID> He was also hypoxic and required O2. He underwent BLE duplex which was negative for DVT. Once symptoms improved, he was discharged back to [facility]. Discharge Medications New Medications: Docusate Sodium (Docusate Sodium) 100 Mg Tablet 100 MG ORAL TWICE A DAY, #60 TAB 0 Refills Continued Medications: Clopidogrel Bisulfate* (Plavix*) 75 Mg Tablet 75 MG ORAL DAILY, TAB Divalproex Sodium* (Depakote*) 250 Mg Tablet.dr 1000 MG PO Q12HR, TAB Nitroglycerin (Nitroglycerin) 0.4 Mg Tab.subl 0.4 MG SL PRN, TAB Pantoprazole* (Protonix*) 40 Mg Tablet.dr 40 MG ORAL DAILY, TAB Discontinued Medications: Tamsulosin HCl (Flomax) 0.4 Mg Cap 0.4 MG ORAL DAILY, CAP Discharge Condition Upon Discharge: stable Discharge Disposition Patient was discharged to SNF/Subacute Facility(03) Discharge Diagnoses: (1) Chest pain (2) Pneumonia (3) Acute respiratory failure with hypoxia (4) GRZEGORZ on CKD (5) Urinary retention (6) H/o VA in 2014 per patient (7) HTN (hypertension) (8) HLD (hyperlipidemia) (9) BPH (benign prostatic hyperplasia) (10) GERD (gastroesophageal reflux disease) (11) Tremor (12) DM2 (diabetes mellitus, type 2) (13) Hypomagnesemia (14) Hyponatremia (15) Right pulmonary infiltrate on CXR (16) Diabetes (17) Pulmonary edema (18) Hx of fracture of fibula Catie Dillon M.D. Apr 16, 2017 08:13
--- NOTE | 2017-04-16 16:48 | Diagnostic Imaging Report ---
APPROVED REPORT CPT Code: 39174 Present Symptoms Shortness of breath BILATERAL: Imaging reveals a patent deep venous system bilaterally. There is no evidence of thrombus within the femoral, popliteal or tibial segments. The greater saphenous veins are also within normal limits. Doppler indicates normal spontaneous flow within these segments.
--- NOTE | 2017-04-19 16:30 | Cardiology Report ---
APPROVED REPORT EKG Measurement Heart [id number] Normal sinus rhythm Abnormal ECG
== END 2017-04-15 21:15 | disposition home or self-care (01) | DRG 139 ==
LOC: EDBD 11:14 → EMR 11:45 → 2E 14:00 → EDBEDREQ 14:30 → 4W 04-13 20:09
DX: J18.9 Pneumonia, unspecified organism (principal); J96.01 Acute respiratory failure with hypoxia; N17.9 Acute kidney failure, unspecified; E11.22 Type 2 diabetes mellitus with diabetic chronic kidney disease; E11.40 Type 2 diabetes mellitus with diabetic neuropathy, unspecified; E83.42 Hypomagnesemia; E11.65 Type 2 diabetes mellitus with hyperglycemia; I25.2 Old myocardial infarction; I25.10 Atherosclerotic heart disease of native coronary artery without angina pectoris; E78.5 Hyperlipidemia, unspecified; K21.9 Gastro-esophageal reflux disease without esophagitis; E03.9 Hypothyroidism, unspecified; E66.9 Obesity, unspecified; R25.1 Tremor, unspecified; F90.9 Attention-deficit hyperactivity disorder, unspecified type; G40.909 Epilepsy, unspecified, not intractable, without status epilepticus; N40.1 Benign prostatic hyperplasia with lower urinary tract symptoms; R33.8 Other retention of urine; D64.9 Anemia, unspecified; E79.0 Hyperuricemia without signs of inflammatory arthritis and tophaceous disease; I12.9 Hypertensive chronic kidney disease with stage 1 through stage 4 chronic kidney disease, or unspecified chronic kidney disease; N18.9 Chronic kidney disease, unspecified; E87.1 Hypo-osmolality and hyponatremia; F32.9 Major depressive disorder, single episode, unspecified; Z98.61 Coronary angioplasty status; Z79.82 Long term (current) use of aspirin; Z79.4 Long term (current) use of insulin; Z68.31 Body mass index [BMI] 31.0-31.9, adult; Z85.828 Personal history of other malignant neoplasm of skin; Z23 Encounter for immunization
CPT/HCPCS: 36415; 36600; 71010; 76775; 78452; 80048; 80053; 80061; 80076; 80164; 80307; 81003; 82009; 82140; 82164; 82306; 82550; 82553; 82570; 82607; 82728; 82746; 82803; 82962; 82977; 83036; 83540; 83550; 83605; 83735; 83880; 84100; 84300; 84439; 84443; 84484; 84550; 85007; 85025; 86140; 86710; 86738; 87040; 87081; 90630; 90732; 93005; 93017; 93306; 93970; 94760; 99285; C9399; J1815; J2405; J2785

== ENCOUNTER 2017-04-21 15:08 | Emergency (ER) | payer OTHER ==
[~2017-04-21] VITALS: Ht 182.9 cm; Wt 104.3 kg
[~2017-04-21 15:08] MED LIST changes: +DOCUSATE SODIU100 M2 ORAL; +LEVAQUIN750 MG ORAL
[2017-04-21 15:10] VITALS: BP 117/57
[2017-04-21] MEDS ORDERED: Sodium Chloride 500ML 500 ML IV ONE (15:24)
--- NOTE | 2017-04-21 16:12 | Diagnostic Imaging Report ---
Indication: Head trauma. Headache Technique: Contiguous 5 mm thick transaxial imaging of the head obtained in a Siemens Sensation [address] scanner. Soft tissue and bone windows generated. Automatic Exposure Control was utilized. Total Dose length Product (DLP): [address] Dose Index Volume (CTDIvol): 70.38, 0.15 mGy Comparison: none Findings: There is moderate prominence of the ventricles, basal cisterns, and cerebral sulci consistent with atrophy. Moderate, nonspecific, white matter hypoattenuation is noted throughout the brain consistent with chronic small vessel disease. There is no midline shift, edema, acute hemorrhage, mass effect, or abnormal extra-axial fluid collections. Bones and extra osseous soft tissues are unremarkable. Impression: No acute intracranial bleed, mass effect or edema. Moderate atrophy of the brain. Evidence of chronic small vessel disease involving white matter tracts. The CT scanner at [facility] is accredited by the [employer] and the scans are performed using dose optimization techniques as appropriate to a performed exam including Automatic Exposure control.
--- NOTE | 2017-04-21 16:22 | Diagnostic Imaging Report ---
Indication: Dyspnea Comparison: 04/14/17 A single view chest radiograph was obtained. Findings: Interstitial edema has largely improved and resolved. There is mild basilar atelectasis on the left. Lung volumes remain low. Impression: Mild left basal atelectasis.
[2017-04-21 17:00] VITALS: BP 110/66
[2017-04-21 17:03] LABS: BASOPHILS % (AUTO) 1.2 % (0.0-2.0); EOSINOPHILS % (AUTO) 3.5 % (0.0-3.0); LYMPHOCYTES % (AUTO) 21.6 % (20.0-45.0); MEAN CORPUSCULAR HEMOGLOBIN 30.5 PG (27.0-31.0); MEAN CORPUSCULAR HGB CONC 31.6 G/DL (32.0-36.0); MEAN CORPUSCULAR VOLUME 97 FL (80-99); MEAN PLATELET VOLUME 5.3 FL (6.5-10.1); MONOCYTES % (AUTO) 12.1 % (1.0-10.0); NEUTROPHILS % (AUTO) 61.7 % (45.0-75.0); PLATELET COUNT 215 K/UL (150-450); RED BLOOD COUNT 2.61 M/UL (4.70-6.10); RED CELL DISTRIBUTION WIDTH 13.8 % (11.6-14.8); WHITE BLOOD COUNT 8.3 K/UL (4.8-10.8)
[2017-04-21 17:08] LABS: ANION GAP 7 mmol/L (5-15); CALCIUM 8.3 MG/DL (8.5-10.1); CARBON DIOXIDE 32 MMOL/L (21-32); CHLORIDE 100 MMOL/L (98-107); GLOMERULAR FILTRATION RATE 33.8 mL/min (>60); POTASSIUM 4.1 MMOL/L (3.5-5.1); SODIUM 139 MMOL/L (136-145)
[2017-04-21 17:10] LABS: PROTHROMBIN TIME 10.6 SEC (9.30-11.50)
[2017-04-21 17:21] LABS: ALANINE AMINOTRANSFERASE 15 U/L (12-78); ALBUMIN/GLOBULIN RATIO 0.8 (1.0-2.7); ASPARTATE AMINO TRANSFERASE 22 U/L (15-37); CKMB 2.3 NG/ML (0.0-3.6); TOTAL PROTEIN 5.7 G/DL (6.4-8.2)
[2017-04-21] MEDS ORDERED: ASPIRIN EC81 MG ORAL (19:01)
[2017-04-21] MEDS ORDERED: ATORVASTATIN CA40 MG ORAL (19:02)
[2017-04-21] MEDS ORDERED: HUMALOG KW200 UNIT/1 SQ (19:10)
[2017-04-21] MEDS ORDERED: FOSAMAX70 MG ORAL (19:11)
[2017-04-21] MEDS ORDERED: VITAMIN D1000 UNI1 ORAL (19:12)
[2017-04-21] MEDS ORDERED: BASAGLAR K100 UNIT/1 SQ (19:13)
[2017-04-21] MEDS ORDERED: LEVOTHYROXINE50 MCG ORAL (19:14)
[2017-04-21] MEDS ORDERED: CARVEDILOL3.125 MG ORAL (19:14)
[2017-04-21] MEDS ORDERED: FUROSEMIDE40 MG ORAL (19:15)
[2017-04-21] MEDS ORDERED: CYMBALTA30 MG ORAL (19:16)
[2017-04-21] MEDS ORDERED: MECLIZINE HCL25 MG ORAL (19:17)
[2017-04-21] MEDS ORDERED: NIZORAL 2% C1 APPLIC TOPIC (19:19)
[2017-04-21] MEDS ORDERED: DILAUDID2 MG ORAL (19:21)
[2017-04-21 21:40] VITALS: BP 127/60
[2017-04-21 21:47] VITALS: BP 127/60
--- NOTE | 2017-04-21 22:05 | Emergency Room Report ---
History of Present Illness General Chief Complaint: General Complaint Source: Patient Present Illness HPI 66-year-old male presents to ED for evaluation. Patient comes from [facility]. States that yesterday he started feeling very weak and shaky. States he checked his blood sugar it was very low and was given food and juice to increase his blood sugar. States that last night he was feeling very weak when getting out of bed and fell and hit his head. Patient presents with headache, chest wall pain and left leg pain. States he is having difficulty emulating. Feels too weak. Denies chest pain or shortness of breath. Denies fevers chills. States pain is throbbing, 10 out of 10, nonradiating. No other aggravating relieving factors. Denies any other systems Allergies: Coded Allergies: ACETAMINOPHEN (Unverified Allergy, Unknown, 05/18/14) unknown reaction CHLORPROMAZINE (Unverified Allergy, Unknown, 05/18/14) HYDROCODONE (Unverified Allergy, Unknown, 05/18/14) unknown reaction IBUPROFEN (Unverified Allergy, Unknown, 05/18/14) IMIPRAMINE (Unverified Allergy, Unknown, shaking, 05/18/14) METHSUXIMIDE (Unverified Allergy, Unknown, 05/18/14) METHYLPHENIDATE (Unverified Allergy, Unknown, 05/18/14) Patient History Past Medical History: HTN, CA, CAD Pertinent Family History: none Social History: Denies: smoking, alcohol use, drug use Immunizations: UTD Reviewed Nursing Documentation: PMH: Agreed, PSxH: Agreed Nursing Documentation-PMH Hx Cardiac Problems: Yes - CAD,MULTI CA'Si STENTS Hx Hypertension: Yes Hx Diabetes: Yes - NEUROPATHY Hx Cancer: Yes - SKIN CANCER Hx Gastrointestinal Problems: Yes - GROWTH ON UPPER GI TRACT Hx Neurological Problems: Yes Hx Cerebrovascular Accident: No - ADHD ,LEFT TIBIAL FX Hx Seizures: Yes 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 Hx Vertigo: Yes - VESTIBULARY Review of Systems All Other Systems: negative except mentioned in HPI Physical Exam Vital Signs Date Time Temp Pulse Resp B/P (MAP) Pulse Ox O2 Delivery O2 Flow Rate FiO2 04/21/17 14:54 98.1 77 16 97/58 94 Room Air Sp02 EP Interpretation: reviewed, normal General Appearance: no apparent distress, alert, GCS 15, non-toxic Head: normocephalic, atraumatic Eyes: bilateral eye normal inspection, bilateral eye PERRL ENT: hearing grossly normal, normal pharynx, no angioedema, normal voice Neck: full range of motion, supple/symm/no masses Respiratory: chest non-tender, lungs clear, normal breath sounds, speaking full sentences Cardiovascular #1: regular rate, rhythm, no edema Cardiovascular #2: 2+ carotid (R), 2+ carotid (L), 2+ radial (R), 2+ radial (L) , 2+ dorsalis pedis (R), 2+ dorsalis pedis (L) Gastrointestinal: normal bowel sounds, non tender, soft, non-distended, no guarding, no rebound Rectal: deferred Genitourinary: normal inspection, no CVA tenderness Musculoskeletal: back normal, gait/station normal, normal range of motion, tender - LLE Neurologic: alert, oriented x3, responsive, motor strength/tone normal, sensory intact, speech normal Psychiatric: judgement/insight normal, memory normal, mood/affect normal, no suicidal/homicidal ideation Reflexes: 3+ bicep (R), 3+ bicep (L), 3+ tricep (R), 3+ tricep (L), 3+ knee (R) , 3+ knee (L) Skin: normal color, no rash, warm/dry, well hydrated Lymphatic: no adenopathy Procedures Splinting Splinting : Consent: Verbal Splint: poserior short Pre-Proc Neuro Vasc Exam: normal Post-Proc Neuro Vasc Exam: normal Patient Tolerated: Well Complications: None Medical Decision Making Diagnostic Impression: Primary Impression: Unsteady gait Additional Impressions: Weakness Fibula fracture Qualified Codes: S82.832A - Other fracture of upper and lower end of left fibula, initial encounter for closed fracture Anemia Qualified Codes: D64.9 - Anemia, unspecified Renal insufficiency ER Course Hospital Course 66-year-old male presents ED complaining of leg pain, chest wall pain status post fall. Feeling weak. Differential diagnoses include: CA/unstable angina, arrythmia, dehydration, CVA/ TIA Clinical course Patient placed on stretcher. on monitor and storage bin tender. After initial history and physical I ordered labs, EKG, chest x-ray, IVFs, CT Brain, L tibfib xray labs reviewed- no leukocytosis, hemoglobin/hematocrit 8/25, BUN/Cr elevated, trop negative EKG- NSR, no acute ischemic changes Chest x-ray- no acute process CT brain-unremarkable L tibfib shows distal fibula fx placed in posterior splint Because of insurance patient will be transferred I. I feel this is a highly complex case requiring extensive working including EKG/Rhythm strip, Xray/CT/US, Blood/urine lab work, repeat exams while in ED, and administration of strong opiates/narcotics for pain control, admission to hospital or close patient follow up. Diagnosis - unsteady gait, weakness, fibula fx, anemia, renal insufficiency Transferred in serious condition Labs Test 04/21/17 16:45 White Blood Count 8.3 K/UL (4.8-10.8) Red Blood Count 2.61 M/UL (4.70-6.10) Hemoglobin 8.0 G/DL (14.2-18.0) Hematocrit 25.3 % (42.0-52.0) Mean Corpuscular Volume 97 FL (80-99) Mean Corpuscular Hemoglobin 30.5 PG (27.0-31.0) Mean Corpuscular Hemoglobin Concent 31.6 G/DL (32.0-36.0) Red Cell Distribution Width 13.8 % (11.6-14.8) Platelet Count 215 K/UL (150-450) Mean Platelet Volume 5.3 FL (6.5-10.1) Neutrophils (%) (Auto) 61.7 % (45.0-75.0) Lymphocytes (%) (Auto) 21.6 % (20.0-45.0) Monocytes (%) (Auto) 12.1 % (1.0-10.0) Eosinophils (%) (Auto) 3.5 % (0.0-3.0) Basophils (%) (Auto) 1.2 % (0.0-2.0) Prothrombin Time 10.6 SEC (9.30-11.50) Prothromb Time International Ratio 1.0 (0.9-1.1) Activated Partial Thromboplast Time 31 SEC (23-33) Sodium Level 139 MMOL/L (136-145) Potassium Level 4.1 MMOL/L (3.5-5.1) Chloride Level 100 MMOL/L (98-107) Carbon Dioxide Level 32 MMOL/L (21-32) Anion Gap 7 mmol/L (5-15) Blood Urea Nitrogen 21 mg/dL (7-18) Creatinine 2.0 MG/DL (0.55-1.30) Estimat Glomerular Filtration Rate 33.8 mL/min (>60) Glucose Level 205 MG/DL (74-106) Calcium Level 8.3 MG/DL (8.5-10.1) Total Bilirubin 0.4 MG/DL (0.2-1.0) Aspartate Amino Transf (AST/SGOT) 22 U/L (15-37) Alanine Aminotransferase (ALT/SGPT) 15 U/L (12-78) Alkaline Phosphatase 63 U/L (46-116) Total Creatine Kinase 191 U/L (26-308) Creatine Kinase MB 2.3 NG/ML (0.0-3.6) Creatine Kinase MB Relative Index 1.2 Troponin I 0.003 ng/mL (0.000-0.056) Total Protein 5.7 G/DL (6.4-8.2) Albumin 2.5 G/DL (3.4-5.0) Globulin 3.2 g/dL Albumin/Globulin Ratio 0.8 (1.0-2.7) EKG Diagnostic Results Rate: normal Rhythm: NSR ST Segments: no acute changes ASA given to the pt in ED: No Rhythm Strip Diag. Results EP Interpretation: yes Rhythm: NSR, no PVC's, no ectopy Chest X-Ray Diagnostic Results Chest X-Ray Diagnostic Results : Chest X-Ray Ordered: Yes # of Views/Limited/Complete: 1 View Indication: Chest Pain EP Interpretation: Yes Interpretation: no consolidation, no pneumothorax, no acute cardiopulmonary disease Impression: Other - L basilar atelectasis Electronically Signed by: Electronically signed by Charles Kramer MD Other X-Ray Diagnostic Results Other X-Ray Diagnostic Results : X-Ray ordered: L tibfib # of Views/Limited Vs Complete: 2 View Indication: Pain EP Interpretation: Yes Interpretation: no dislocation, no soft tissue swelling, nonspecific bowel gas, other - distal fibula fx Impression: Other - fibula fx Electronically Signed by: Electronically signed by Charles Kramer MD CT/MRI/US Diagnostic Results CT/MRI/US Diagnostic Results : Imaging Test Ordered: CT head Impression no acute process Last Vital Signs Date Time Temp Pulse Resp B/P (MAP) Pulse Ox O2 Delivery O2 Flow Rate FiO2 04/21/17 21:40 98.3 69 9 127/60 97 Room Air Status: improved Disposition: XFER [facility] Condition: Serious Referrals: NON PHYSICIAN (PCP) CHARLES KRAMER M.D. Apr 21, 2017 22:05
--- NOTE | 2017-04-22 09:36 | Diagnostic Imaging Report ---
Indication: PAIN Technique: 2 views of the left tibia and fibula Comparison: none Findings: There is an oblique fracture of the distal fibula. No associated tibial fracture. Slight widening of the medial ankle mortise could indicate medial ligamentous injury, however. Impression: Positive for distal fibular fracture. Review of the electronic medical record indicates this was recognized by the emergency department physician
--- NOTE | 2017-04-29 17:20 | Cardiology Report ---
APPROVED REPORT EKG Measurement Heart [id number] Normal sinus rhythm Nonspecific ST and T wave abnormality Abnormal ECG
== END 2017-04-21 21:47 | disposition short-term general hospital (02) ==
LOC: EDBD 15:08 → EMR 15:40 → EDBEDREQ 16:10 → EMR 21:47
DX: R26.81 Unsteadiness on feet (principal); R53.1 Weakness; G31.9 Degenerative disease of nervous system, unspecified; R51 Headache; S82.432A Displaced oblique fracture of shaft of left fibula, initial encounter for closed fracture; W06.XXXA Fall from bed, initial encounter; Y92.122 Bedroom in nursing home as the place of occurrence of the external cause; D64.9 Anemia, unspecified; N28.9 Disorder of kidney and ureter, unspecified; I25.10 Atherosclerotic heart disease of native coronary artery without angina pectoris; Z85.828 Personal history of other malignant neoplasm of skin; I25.2 Old myocardial infarction; Z95.5 Presence of coronary angioplasty implant and graft
CPT/HCPCS: 29515; 36415; 70450; 71010; 80053; 82550; 82553; 82962; 84484; 85025; 85610; 85730; 86850; 86900; 86901; 93005; 96360; 99284